=== PATIENT | male | born 1945 | race African-American/Black ===

== ENCOUNTER 2016-04-01 14:50 | Inpatient (IN) | payer OTHER ==
[2016-04-01 15:05] VITALS: BMI 13.6
--- NOTE | 2016-04-01 15:46 | PDOC ---
History of Present Illness - General History Source: Spouse, Old Records Exam Limitations: No Limitations - History of Present Illness Initial Comments: 04/01/16 15:46 The patient is a 70-year-old man, former smoker(quit >10 years ago), accompanied by spouse with a significant past medical history of HIV, hypertension. hyperchoelsterolemia, chronic obstructive pulmonary disease (home O2 dependent, was on 4L; recently increased to 6L), lung Ca(recently diagnosed) , who presents to the emergency department via EMS for further evaluation of chest pain. As per patient's , the patient was noted to complaint of chest pain today and was noted to be significantly weak. Patient's also recalls that the patinet's oxygen saturation was in the low 70s, despite compliance of home O2 6L. Upon ER arrival, patient was noted to by hypoxic (O2 in the 60s), tahcypneic (RR of 33), tachycardic (HR in the 120s). Patient as immediately placed on a non-rebreather and Respiratory was immediately called for a STAT ABG. Primary Care Physician: Dr. Shruti Shanks [phone] Superintendent Operating: Dr. Scott Jones [phone] Injection Mold Technician/Oncologist: Dr. Jono Weir Office: [phone] Infectious Disease: Dr. Amado Bermeo [phone] <Lakeisha Rico - Last Filed: 04/01/16 18:09> <Hernan Barone - Last Filed: 04/01/16 19:30> <Amado Sifuentes - Last Filed: 04/01/16 22:02> - General Chief Complaint: Chest Pain Stated Complaint: CHEST PAIN Time Seen by Provider: 04/01/16 15:45 Past History <Lakeisha Rico - Last Filed: 04/01/16 18:09> <Hernan Barone - Last Filed: 04/01/16 19:30> - Past Medical History Anemia: No Asthma: No Cancer: Yes (LUNG) Cardiac Disorders: No CVA: No COPD: Yes CHF: No Dementia: No Diabetes: No GI Disorders: No Disorders: No HTN: Yes Hypercholesterolemia: No HIV: Yes Liver Disease: No Seizures: No Thyroid Disease: No - Surgical History Abdominal Surgery: No Appendectomy: No Cardiac Surgery: No Cholecystectomy: No Lung Surgery: No Neurologic Surgery: No Orthopedic Surgery: No - Psycho/Social/Smoking Cessation Hx Anxiety: No Suicidal Ideation: No Smoking Status: No Smoking History: Former smoker Have you smoked in the past 12 months: No Number of Cigarettes Smoked Daily: 0 If you are a former smoker, when did you quit?: 2 MO Information on smoking cessation initiated: No Hx Alcohol Use: No Drug/Substance Use Hx: No Substance Use Type: None Hx Substance Use Treatment: No <mAado Sifuentes - Last Filed: 04/01/16 22:02> - Past Medical History Allergies/Adverse Reactions: Allergies Allergy/AdvReac Type Severity Reaction Status Date / Time No Known Allergies Allergy Verified 04/01/16 15:05 Home Medications: Ambulatory Orders Emtricitab/Rilpivirine/Tenofov [Complera -] 1 each PO DAILY 01/29/16 Rosuvastatin [Crestor -] 20 mg PO DAILY 01/29/16 Albuterol Sulfate Inhaler - [Ventolin Hfa Inhaler -] 1 - 2 inh PO Q4H #1 inhaler 02/05/16 Albuterol 0.083% Nebulizer Mami [Ventolin 0.083% Nebulizer Soln -] 1 neb NEB Q6H PRN 04/01/16 Review of Systems - Review of Systems Able to Perform ROS?: Yes Comments:: 04/01/16 15:47 GENERAL/CONSTITUTIONAL: Yes: +Weakness. No fever or chills. HEAD, EYES, EARS, NOSE AND THROAT: No change in vision. No ear pain or discharge. No sore throat. CARDIOVASCULAR: Yes: +Chest pain. +Shortness of Breath. RESPIRATORY: No cough, wheezing, or hemoptysis. GASTROINTESTINAL: No nausea, vomiting, diarrhea or constipation. GENITOURINARY: No dysuria, frequency, or change in urination. MUSCULOSKELETAL: No joint or muscle swelling or pain. No neck or back pain. SKIN: No rash NEUROLOGIC: No headache, vertigo, loss of consciousness, or change in strength/ sensation. ENDOCRINE: No increased thirst. No abnormal weight change. HEMATOLOGIC/LYMPHATIC: No anemia, easy bleeding, or history of blood clots. ALLERGIC/IMMUNOLOGIC: No hives or skin allergy. <Lakeisha Rico - Last Filed: 04/01/16 18:09> *Physical Exam - Vital Signs Last Vital Signs Temp Pulse Resp BP Pulse Ox 140 H 18 90/54 68 L 04/01/16 14:54 04/01/16 14:54 04/01/16 14:54 04/01/16 14:54 - Physical Exam Comments: 04/01/16 15:47 GENERAL: Awake, alert, arousable to answer questions. Appears somnolent. Cachetic. Hypoxic. Tachypneic. Retracting. Obtunded using accessory muscles. HEAD: No signs of trauma EYES: PERRLA, EOMI, sclera anicteric, conjunctiva clear ENT: Auricles normal inspection, hearing grossly normal, nares patent, oropharynx clear without exudates. Moist mucosa NECK: Normal ROM, supple, no lymphadenopathy, JVD, or masses LUNGS: Tachypneic, Using accessory muscles. Bilateral rales with decreased breath sound on the right base. HEART: Tachycardic to the 130s. no murmurs, rubs or gallops ABDOMEN: +Abdominal breathing. Soft, nontender, normoactive bowel sounds. No guarding, no rebound. No masses EXTREMITIES: Normal range of motion, no edema. No clubbing or cyanosis. No cords, erythema, or tenderness NEUROLOGICAL: Cranial nerves II through XII grossly intact. Moving all extremities. <JackyLakeisha - Last Filed: 04/01/16 18:09> - Vital Signs Last Vital Signs Temp Pulse Resp BP Pulse Ox 110 H 28 H 101/72 97 04/01/16 17:49 04/01/16 17:49 04/01/16 17:49 04/01/16 17:49 <Hernan Barone - Last Filed: 04/01/16 19:30> - Vital Signs Last Vital Signs Temp Pulse Resp BP Pulse Ox 140 H 18 90/54 68 L 04/01/16 14:54 04/01/16 14:54 04/01/16 14:54 04/01/16 14:54 <Amado Sifuentes - Last Filed: 04/01/16 22:02> ED Treatment Course - LABORATORY CBC & Chemistry Diagram: 04/01/16 15:45 04/01/16 15:45 <Lakeisha Rico - Last Filed: 04/01/16 18:09> - LABORATORY CBC & Chemistry Diagram: 04/01/16 15:45 04/01/16 15:45 - ADDITIONAL ORDERS Additional order review: Laboratory Results 04/01/16 04/01/16 04/01/16 17:48 16:04 15:46 D-Dimer Puncture Site Left radial ABG pH 7.49 H ABG pCO2 at Pt Temp 34.4 L ABG pO2 at Pt Temp 41.6 L* D ABG HCO3 25.7 ABG O2 Sat (Measured) 77.9 L ABG O2 Content 10.0 L ABG Base Excess 2.7 H Jose Elias Test Positive Carboxyhemoglobin 1.2 Methemoglobin 25.7 H O2 Delivery Device Nrb mask Oxygen Flow Rate 100% PEEP 0.0 Sodium Potassium Chloride Carbon Dioxide Anion Gap BUN Creatinine Creat Clearance w eGFR Random Glucose Lactic Acid 2.230 H* 5.016 H* Calcium Total Bilirubin AST ALT Alkaline Phosphatase Creatine Kinase Troponin I B-Natriuretic Peptide Total Protein Albumin Blood Type Antibody Screen 04/01/16 04/01/16 04/01/16 15:45 15:45 15:45 D-Dimer 2306 H Puncture Site ABG pH ABG pCO2 at Pt Temp ABG pO2 at Pt Temp ABG HCO3 ABG O2 Sat (Measured) ABG O2 Content ABG Base Excess Jose Elias Test Carboxyhemoglobin Methemoglobin O2 Delivery Device Oxygen Flow Rate PEEP Sodium 134 L Potassium 4.6 Chloride 95 L D Carbon Dioxide 27 Anion Gap 12 BUN 19 H D Creatinine 1.2 Creat Clearance w eGFR 59.51 Random Glucose 126 H Lactic Acid Calcium 8.3 L Total Bilirubin 0.3 D AST 149 H D ALT 147 H D Alkaline Phosphatase 174 H D Creatine Kinase 91 Troponin I < 0.02 B-Natriuretic Peptide 562.86 H Total Protein 6.8 D Albumin 1.7 L Blood Type O POSITIVE Antibody Screen Negative 04/01/16 15:45 RBC 4.49 MCV 68.2 L MCHC 30.5 L RDW 18.0 H D MPV 8.3 Neutrophils % 82.0 Lymphocytes % 8.0 D Monocytes % 7.0 - Medications Given in the ED: ED Medications Discontinued Medications Generic Name Dose Route Start Last Admin Trade Name Freq PRN Reason Stop Dose Admin Vancomycin HCl 1,000 mg/ 250 mls @ 250 mls/hr 04/01/16 16:07 04/01/16 16:48 Dextrose IVPB 04/01/16 17:06 250 mls/hr ONCE ONE Administration Piperacillin Sod/Tazobactam Sod 3.375 gm 04/01/16 16:07 04/01/16 16:27 Zosyn 3.375gm Ivpb (Pre-Docked) IVPB 04/01/16 16:08 3.375 gm ONCE ONE Administration Sodium Chloride 1,000 ml 04/01/16 17:18 04/01/16 17:18 Normal Saline - IV 04/01/16 17:19 1,000 ml NOW ONE Administration <Hernan Barone - Last Filed: 04/01/16 19:30> - LABORATORY CBC & Chemistry Diagram: 04/01/16 15:45 04/01/16 15:45 <Amado Sifuentes - Last Filed: 04/01/16 22:02> Medical Decision Making - Medical Decision Making 04/01/16 15:54 Respiratory was called at [id number] for STAT ABG. 04/01/16 16:00 Superintendent Operating, Dr. Guzman Kumar, partner of patient's Superintendent Operating, Dr. Scott Jones is currently in the ER reviewing patients portable Chest X- Ray. Dr. Kumar states that the patient's has Pneumonia and his lung Ca is metastasized. 04/01/16 16:22 A call was placed to patient's Injection Mold Technician/Oncologist, Dr. Jono Weir Office at [phone]. Case was discussed. 04/01/16 16:[address] Burns. Case was discussed. She does not accept the case and would like for it to go to the [facility]. 04/01/16 16:39 Overhead page, Dr. Calabrese. Immediate response. Case was discussed. Accepts case. 04/01/16 16:47 A call was placed to patient's PCP, Dr. Shruti Shanks at . Case was discussed. Accepts case. Patient will be admitted to the ICU for further management. <Lakeisha Rico - Last Filed: 04/01/16 18:09> *DC/Admit/Observation/Transfer - Attestations Scribe Attestion: 04/01/16 15:47 Documentation prepared by Lakeisha Rico, acting as medical radiation tech for Amado Sifuentes MD. <Lakeisha Rico - Last Filed: 04/01/16 18:09> - Discharge Dispostion Admit: Yes <Hernan Barone - Last Filed: 04/01/16 19:30> - Discharge Dispostion Admit: Yes <Amado Sifuentes - Last Filed: 04/01/16 22:02> Diagnosis at time of Disposition: Abnormal LFTs, Lung mass, Malignant neoplasm of hilus of lung, Right lower lobe pneumonia - Discharge Dispostion Condition at time of disposition: Critical - Referrals
[2016-04-01] MEDS ORDERED: RAPID SEQUENCE INTUBATION KIT NR ONE (15:53)
[2016-04-01 15:57] LABS: ALLENS TEST POSITIVE; ART PUNCT SITE LEFT RADIAL; ARTERIAL BLD GAS O2 SATURATION 77.9 % (90-98.9); ARTERIAL BLOOD GAS BASE EXCESS 2.7 meq/l (-2-2); ARTERIAL BLOOD GAS HCO3 25.7 meq/L (22-26); ARTERIAL BLOOD GAS pH 7.49 (7.35-7.45); METHEMOGLOBIN 25.7 % (0.4-1.5); PT. ON O2? YES
[2016-04-01 15:58] LABS: LPM/O2% 100%; TYPE OF O2 NRB MASK
[2016-04-01 15:59] LABS: ARTERIAL BLOOD GAS PO2 41.6 mmHg (70-100)
[2016-04-01 16:02] LABS: MCH 20.8 pg (25.7-33.7); MCHC 30.5 g/dl (32.0-35.9); MEAN CELL VOLUME 68.2 fl (80-96); MEAN PLT VOLUME 8.3 fl (7.5-11.1); PLATELET COUNT 825 K/MM3 (134-434)
[2016-04-01] MEDS ORDERED: PIPERACILLIN/TAZOB 3.375 GM/50 ML PRE-DOCKED IVPB ONE (16:07)
[2016-04-01] MEDS ORDERED: VANCOMYCIN 1,000 MG in DEXTROSE 5%-WATER - 250 ML IVPB ONE (16:07)
[2016-04-01] MEDS ORDERED: VANCOMYCIN 1 GRAM (PRE-DOCKED) 250 ML IVPB ONE (16:18)
[2016-04-01] MEDS ORDERED: PIPERACILLIN/TAZOB 3.375 GM 50 ML IVPB ONE (16:18)
[2016-04-01 16:21] LABS: WHITE BLOOD COUNT 32.2 K/mm3 (4.0-10.0)
[2016-04-01 16:27] LABS: ALBUMIN 1.7 g/dl (3.4-5.0); ANION GAP 12 (8-16); BILIRUBIN,TOTAL 0.3 mg/dL (0.2-1.0); CALCIUM 8.3 mg/dL (8.5-10.1); CO2 27 mmol/L (21-32); CREATININE 1.2 mg/dL (0.7-1.3); GLUCOSE,RANDOM 126 mg/dL (74-106); SGOT/AST 149 U/L (15-37); SGPT/ALT 147 U/L (12-78); TOT PROT 6.8 g/dl (6.4-8.2)
[2016-04-01 16:30] LABS: ALK PHOS 174 U/L (45-117); TROPONIN I < 0.02 ng/ml (0.00-0.05)
[2016-04-01 16:45] LABS: ANISOCYTOSIS 1+; HYPOCHROMIA 2+; MICROCYTOSIS 1+; OVALOCYTES 1+; PLATELET COMMENT2 NO CLUMPING NOTED; PLATELET ESTIMATE DECREASED (NORMAL); POIKILOCYTOSIS 1+; POLYCHROMASIA 1+; TARGET CELLS 2+
--- NOTE | 2016-04-01 16:48 | PN ---
Progress Note (short form) - Note Progress Note: PULMONARY CNSULTATION DICTATED 04/01/16 IMP ACUTE ON CHRONIC HYPOXEMIC RESPIRATORY FAILURE ADVANCED COPD ON O2 R LUNG PNEUMONIA/ATELECTASIS LUNG CA SQUAMOUS CELL HIV PLAN IV ANTIBIOTICS INHALED BRONCHODILATORS IV STEROIDS SUPPLEMENTAL O2 TO MAINTAIN 2 SAT 90% SPUTUM C+S CHEST CT F/U ABGS DR MILLER Problem List - Problems (1) Acute hypoxemic respiratory failure Code(s): J96.01 - ACUTE RESPIRATORY FAILURE WITH HYPOXIA (2) Acute respiratory distress Code(s): J80 - ACUTE RESPIRATORY DISTRESS SYNDROME (3) HIV (human immunodeficiency virus infection) Code(s): Z21 - ASYMPTOMATIC HUMAN IMMUNODEFICIENCY VIRUS INFECTION STATUS (4) Pneumonia Code(s): J18.9 - PNEUMONIA, UNSPECIFIED ORGANISM (5) Lung cancer Code(s): C34.90 - MALIGNANT NEOPLASM OF UNSP PART OF UNSP BRONCHUS OR LUNG
[2016-04-01] MEDS ORDERED: ALBUTEROL SO4 0.083% IH SOL 2.5 MG/3 ML VIAL.NEB. NEB PRN (16:49)
[2016-04-01] MEDS ORDERED: ALBUTEROL SO4 2.5/IPRATROPIUM 0.5 INH SOL 3 ML VIAL.NEB. NEB ONE ×2 (16:56→23:51)
[2016-04-01] MEDS ORDERED: methylPREDNISolone NA SUCC 40 MG/1 ML VIAL ONE (16:57)
[2016-04-01] MEDS: methylPREDNISolone NA SUCC 40 MG/1 ML VIAL IVPB SCH ×2 (16:59→22:37)
[2016-04-01] MEDS: ALBUTEROL SO4 2.5/IPRATROPIUM 0.5 INH SOL 3 ML VIAL.NEB. NEB SCH (16:59)
[2016-04-01] MEDS ORDERED: SODIUM CHLORIDE 0.9% 1000 ML INFUS.BAG IV ONE (17:18)
--- NOTE | 2016-04-01 17:22 | CONS ---
DATE OF CONSULTATION: 04/01/2016 PULMONARY CONSULTATION REFERRING PHYSICIAN: Jim Burns M.D. HISTORY OF PRESENT ILLNESS: The patient is a 70-year-old black male known to me from previous hospitalization with past medical history of chronic bronchogenic carcinoma squamous cell type, diagnosed in February 2016, advanced COPD on home O2 four liters, history of HIV, under the care of Dr. Bermeo, admitted to [facility] with the complaint of increasing shortness of breath, chest congestion over the past few days. According to the patient's , for the past few days the patient has been having increased shortness of breath, cough, and sputum production. Also noted that he has had progressive increasing hypoxemia. He notified his physician, and family was told to increase his FiO2. Despite these measures, he had increasing respiratory distress and remained hypoxic, at which time he presented to the emergency room. In the ER, he was found to be markedly hypoxemic with O2 saturations in the 70s, had a blood gas performed which revealed pO2 of 41. A chest x-ray was performed which revealed large right sided pneumonia. Patient was started on 100% O2 and inhaled bronchodilators. Patient denies any chest pain, nausea, vomiting, diaphoresis, nausea, hemoptysis. He has a history of tobacco use and apparently, according to his , still occasionally smokes. He also has a history of pneumonia. There is no history of occupational exposure to chemicals or fumes. There is no history of DVT or PE in the past. PAST MEDICAL HISTORY: Again includes bronchogenic carcinoma squamous cell type , HIV, and advanced COPD on O2. MEDICATION: Prior medications include Norvasc , Dulera, Crestor, albuterol, and Augmentin. PHYSICAL EXAMINATION: General: The patient is a cachectic black male, well developed, awake, alert, dyspneic. Vital signs: Blood pressure is currently 90/54, respiratory rate 24 to 26, O2 saturation is 94% on nonrebreather, and heart rate is 122. HEENT: Head is normocephalic, atraumatic. Neck: Supple. Heart: Tachycardic. S1, S2. Chest: Crackles on the right. Abdomen: Soft. Bowel sounds positive. Extremities: No cyanosis, edema. LABORATORY: Blood gas: pH 7.49, pCO2 of 34, pO2 of 41, and bicarbonate of 25, and saturation is 97.9 on 100% nonrebreather. WBC is 32.2, hemoglobin 9.3, hematocrit 30.6, platelet count of 825,000. Chemistries are pending. Chest x-ray revealed a right hilar mass, complete opacification R lung c/w atelectasis,post obstructive pneumonia. IMPRESSION: [id number] hypoxemic respiratory failure secondary to: 1. Advanced chronic obstructive pulmonary disease with exacerbation. 2. Extensive right lung consolidation c/w atelectasis, likely post-obstructive pneumonia. 3. Bronchogenic carcinoma squamous cell type. 4. History of human immunodeficiency virus. PLAN: Admit to ICU. IV steroids. Inhaled bronchodilators. Supplemental O2. Maintain O2 saturation 90%. Cultures, sputum C&S. Follow up arterial blood gases. Broad spectrum antibiotics. Follow- up arterial blood gases. CT scan of the chest. KELLI MILLER M.D. [id number] MTDD
[2016-04-01] MEDS ORDERED: SODIUM CHLORIDE 1,000 ML IV STA (18:29)
--- NOTE | 2016-04-01 18:48 | CONSULT ---
Consult - text type - Consultation Consultation Note: The patient is a 70-year-old man, former smoker(quit >10 years ago), accompanied by spouse with a significant past medical history of HIV, hypertension. hyperchoelsterolemia, chronic obstructive pulmonary disease (home O2 dependent, was on 4L; recently increased to 6L), lung Ca(recently diagnosed squamous cell), who presents to the emergency department via EMS for further evaluation of chest pain. As per patient's , the patient was noted to complaint of chest pain and shortness of breath today and was noted to be significantly weak. Patient's also recalls that the patinet's oxygen saturation was in the low 70s, despite compliance of home O2 6L. Upon ER arrival , patient was noted to by hypoxic (O2 in the 60s), tahcypneic (RR of 33), tachycardic (HR in the 120s). Patient as immediately placed on a non-rebreather - Past Medical History Cancer: Yes (LUNG) HTN: Yes hiv - Psycho/Social/Smoking Cessation Hx Smoking History: Former smoker > - Past Medical History Allergies/Adverse Reactions: Allergies Allergy/AdvReac Type Severity Reaction Status Date / Time No Known Allergies Allergy Verified 04/01/16 15:05 Home Medications: Ambulatory Orders Emtricitab/Rilpivirine/Tenofov [Complera -] 1 each PO DAILY 01/29/16 Rosuvastatin [Crestor -] 20 mg PO DAILY 01/29/16 Albuterol Sulfate Inhaler - [Ventolin Hfa Inhaler -] 1 - 2 inh PO Q4H #1 inhaler 02/05/16 Albuterol 0.083% Nebulizer Mami [Ventolin 0.083% Nebulizer Soln -] 1 neb NEB Q6H PRN 04/01/16 Current Medications Albuterol Sulfate (Ventolin 0.083% Nebulizer Soln -) 1 amp NEB Q4H PRN PRN Reason: SHORT OF BREATH/WHEEZING Albuterol/Ipratropium (Duoneb -) 1 amp NEB QIDR JESSA Last Admin: 04/02/16 06:25 Dose: 1 amp Heparin Sodium (Porcine) (Heparin -) 5,000 unit SQ BID JESSA Last Admin: 04/01/16 22:37 Dose: 5,000 unit Sodium Chloride (Normal Saline -) 1,000 mls @ 75 mls/hr IV ASDIR JESSA Last Admin: 04/01/16 22:03 Dose: 75 mls/hr Methylprednisolone Sodium Succinate (Solu-Medrol -) 40 mg IVPB Q6H-IV JESSA Last Admin: 04/02/16 03:34 Dose: 40 mg Piperacillin Sod/Tazobactam Sod (Zosyn 3.375gm Ivpb (Pre-Docked)) 3.375 gm IVPB Q8H-IV JESSA Piperacillin Sod/Tazobactam Sod (Zosyn 3.375gm Ivpb (Pre-Docked)) 3.375 gm IVPB Q8H-IV JESSA Stop: 04/02/16 10:01 Last Admin: 04/02/16 02:34 Dose: 3.375 gm - Vital Signs Last Vital Signs Temp Pulse Resp BP Pulse Ox 140 H 18 90/54 68 L 04/01/16 14:54 04/01/16 14:54 04/01/16 14:54 04/01/16 14:54 - Physical Exam Comments: 04/01/16 15:47 GENERAL: Awake, alert, arousable to answer questions. Cachetic. Hypoxic. Tachypneic. Retracting. LUNGS: Tachypneic, Using accessory muscles. Bilateral rales with decreased breath sound on the right base. HEART: Tachycardic to the 130s. no murmurs, rubs or gallops ABDOMEN: +Abdominal breathing. Soft, nontender, normoactive bowel sounds. EXTREMITIES: Normal range of motion, no edema Laboratory Results 04/01/16 04/01/16 04/01/16 17:48 16:04 15:46 D-Dimer Puncture Site Left radial ABG pH 7.49 H ABG pCO2 at Pt Temp 34.4 L ABG pO2 at Pt Temp 41.6 L* D ABG HCO3 25.7 ABG O2 Sat (Measured) 77.9 L ABG O2 Content 10.0 L ABG Base Excess 2.7 H Jose Elias Test Positive Carboxyhemoglobin 1.2 Methemoglobin 25.7 H O2 Delivery Device Nrb mask Oxygen Flow Rate 100% PEEP 0.0 Sodium Potassium Chloride Carbon Dioxide Anion Gap BUN Creatinine Creat Clearance w eGFR Random Glucose Lactic Acid 2.230 H* 5.016 H* Calcium Total Bilirubin AST ALT Alkaline Phosphatase Creatine Kinase Troponin I B-Natriuretic Peptide Total Protein Albumin Blood Type Antibody Screen 04/01/16 04/01/16 04/01/16 15:45 15:45 15:45 D-Dimer 2306 H Puncture Site ABG pH ABG pCO2 at Pt Temp ABG pO2 at Pt Temp ABG HCO3 ABG O2 Sat (Measured) ABG O2 Content ABG Base Excess Joes Elias Test Carboxyhemoglobin Methemoglobin O2 Delivery Device Oxygen Flow Rate PEEP Sodium 134 L Potassium 4.6 Chloride 95 L D Carbon Dioxide 27 Anion Gap 12 BUN 19 H D Creatinine 1.2 Creat Clearance w eGFR 59.51 Random Glucose 126 H Lactic Acid Calcium 8.3 L Total Bilirubin 0.3 D AST 149 H D ALT 147 H D Alkaline Phosphatase 174 H D Creatine Kinase 91 Troponin I < 0.02 B-Natriuretic Peptide 562.86 H Total Protein 6.8 D Albumin 1.7 L Blood Type O POSITIVE Antibody Screen Negative 04/01/16 15:45 RBC 4.49 MCV 68.2 L MCHC 30.5 L RDW 18.0 H D MPV 8.3 Neutrophils % 82.0 Lymphocytes % 8.0 D Monocytes % 7.0 A/P 70 y/o patient with HIV, severe COPD, recently diagnosed squamous cell lung cancer, now with shortness of breath. CT chest Rt. lung collapse, mediastinal shift, post obstructive pneumonia ICU team and mysef discussed with paient and family overall situation about impending resp. failure due to underlying malignancy. aggressiveness of the tumor especially given his immunocompromised status. Poor performance status and overallpoor prognosis. discussed thatthey need to address advance directives. Antibiotics supportive care rad-onc consult
--- NOTE | 2016-04-01 20:02 | HP ---
Admitting History and Physical - Primary Care Physician PCP: Jim Burns - Admission Chief Complaint: SOB, CHEST PAIN History of Present Illness: 70-year-old man, former smoker(quit >10 years ago), accompanied by spouse with a significant past medical history of HIV, hypertension. hyperchoelsterolemia, chronic obstructive pulmonary disease (home O2 dependent, was on 4L; recently increased to 6L), lung Ca(recently diagnosed), who presents to the emergency department via EMS for further evaluation of chest pain. As per patient's , the patient was noted to complaint of chest pain today and was noted to be significantly weak.patinet's oxygen saturation was in the low 70s, despite compliance of home O2 6L. Upon ER arrival, patient was noted to by hypoxic (O2 in the 60s), tahcypneic (RR of 33), tachycardic (HR in the 120s). Patient as immediately placed on a non-rebreather and Respiratory was immediately called for a STAT ABG. - Past Medical History Cardiovascular: Yes: HTN, Hyperlipdemia Pulmonary: Yes: Cancer (LUNG), COPD Infectious Disease: Yes: HIV - Smoking History Smoking history: Former smoker Have you smoked in the past 12 months: No Aproximately how many cigarettes per day: 0 If you are a former smoker, when did you quit?: 2 MO - Alcohol/Substance Use Hx Alcohol Use: No Home Medications - Allergies Allergies/Adverse Reactions: Allergies Allergy/AdvReac Type Severity Reaction Status Date / Time No Known Allergies Allergy Verified 04/01/16 15:05 - Home Medications Home Medications: Ambulatory Orders Emtricitab/Rilpivirine/Tenofov [Complera -] 1 each PO DAILY 01/29/16 Rosuvastatin [Crestor -] 20 mg PO DAILY 01/29/16 Albuterol Sulfate Inhaler - [Ventolin Hfa Inhaler -] 1 - 2 inh PO Q4H #1 inhaler 02/05/16 Albuterol 0.083% Nebulizer Mami [Ventolin 0.083% Nebulizer Soln -] 1 neb NEB Q6H PRN 04/01/16 Review of Systems - Review of Systems Constitutional: reports: Unintentional Wgt. Loss, Weakness Respiratory: reports: SOB Physical Examination Vital Signs: Vital Signs Temperature Pulse Rate 110 H 04/01/16 17:49 Respiratory Rate 28 H 04/01/16 17:49 Blood Pressure 101/72 04/01/16 17:49 O2 Sat by Pulse Oximetry (%) 97 04/01/16 17:49 Constitutional: Yes: Cachectic HENT: Yes: Atraumatic Cardiovascular: Yes: Regular Rate and Rhythm Respiratory: Yes: CTA Bilaterally Gastrointestinal: Yes: Normal Bowel Sounds Extremities: Yes: WNL Problem List - Problems (1) Lung cancer Code(s): C34.90 - MALIGNANT NEOPLASM OF UNSP PART OF UNSP BRONCHUS OR LUNG (2) Acute hypoxemic respiratory failure Code(s): J96.01 - ACUTE RESPIRATORY FAILURE WITH HYPOXIA (3) HIV (human immunodeficiency virus infection) Code(s): Z21 - ASYMPTOMATIC HUMAN IMMUNODEFICIENCY VIRUS INFECTION STATUS (4) Pneumonia Code(s): J18.9 - PNEUMONIA, UNSPECIFIED ORGANISM (5) COPD (chronic obstructive pulmonary disease) Code(s): J44.9 - CHRONIC OBSTRUCTIVE PULMONARY DISEASE, UNSPECIFIED Assessment/Plan Laboratory Tests 04/01/16 04/01/16 04/01/16 15:45 15:45 15:45 WBC 32.2 H* D RBC 4.49 Hgb 9.3 L Hct 30.6 L MCV 68.2 L MCHC 30.5 L RDW 18.0 H D Plt Count 825 H D MPV 8.3 Neutrophils % 82.0 Lymphocytes % 8.0 D Monocytes % 7.0 Band Neutrophils 2.0 Reactive Lymphocytes 1 D Platelet Estimate Decreased Platelet Comment No clumping noted Polychromasia 1+ Hypochromic-Microcytic 2+ Poikilocytosis 1+ Anisocytosis 1+ Microcytosis 1+ Target Cells 2+ Ovalocytes 1+ D-Dimer Puncture Site ABG pH ABG pCO2 at Pt Temp ABG pO2 at Pt Temp ABG HCO3 ABG O2 Sat (Measured) ABG O2 Content ABG Base Excess Jose Elias Test Carboxyhemoglobin Methemoglobin O2 Delivery Device Oxygen Flow Rate PEEP Sodium 134 L Potassium 4.6 Chloride 95 L D Carbon Dioxide 27 Anion Gap 12 BUN 19 H D Creatinine 1.2 Creat Clearance w eGFR 59.51 Random Glucose 126 H Lactic Acid Calcium 8.3 L Total Bilirubin 0.3 D AST 149 H D ALT 147 H D Alkaline Phosphatase 174 H D Creatine Kinase 91 Troponin I < 0.02 B-Natriuretic Peptide 562.86 H Total Protein 6.8 D Albumin 1.7 L Blood Type O POSITIVE Antibody Screen Negative 04/01/16 04/01/16 04/01/16 15:45 15:46 16:04 WBC RBC Hgb Hct MCV MCHC RDW Plt Count MPV Neutrophils % Lymphocytes % Monocytes % Band Neutrophils Reactive Lymphocytes Platelet Estimate Platelet Comment Polychromasia Hypochromic-Microcytic Poikilocytosis Anisocytosis Microcytosis Target Cells Ovalocytes D-Dimer 2306 H Puncture Site Left radial ABG pH 7.49 H ABG pCO2 at Pt Temp 34.4 L ABG pO2 at Pt Temp 41.6 L* D ABG HCO3 25.7 ABG O2 Sat (Measured) 77.9 L ABG O2 Content 10.0 L ABG Base Excess 2.7 H Jose Elias Test Positive Carboxyhemoglobin 1.2 Methemoglobin 25.7 H O2 Delivery Device Nrb mask Oxygen Flow Rate 100% PEEP 0.0 Sodium Potassium Chloride Carbon Dioxide Anion Gap BUN Creatinine Creat Clearance w eGFR Random Glucose Lactic Acid 5.016 H* Calcium Total Bilirubin AST ALT Alkaline Phosphatase Creatine Kinase Troponin I B-Natriuretic Peptide Total Protein Albumin Blood Type Antibody Screen 04/01/16 17:48 WBC RBC Hgb Hct MCV MCHC RDW Plt Count MPV Neutrophils % Lymphocytes % Monocytes % Band Neutrophils Reactive Lymphocytes Platelet Estimate Platelet Comment Polychromasia Hypochromic-Microcytic Poikilocytosis Anisocytosis Microcytosis Target Cells Ovalocytes D-Dimer Puncture Site ABG pH ABG pCO2 at Pt Temp ABG pO2 at Pt Temp ABG HCO3 ABG O2 Sat (Measured) ABG O2 Content ABG Base Excess Jose Elias Test Carboxyhemoglobin Methemoglobin O2 Delivery Device Oxygen Flow Rate PEEP Sodium Potassium Chloride Carbon Dioxide Anion Gap BUN Creatinine Creat Clearance w eGFR Random Glucose Lactic Acid 2.230 H* Calcium Total Bilirubin AST ALT Alkaline Phosphatase Creatine Kinase Troponin I B-Natriuretic Peptide Total Protein Albumin Blood Type Antibody Screen 1.acute respiratory failure/pna pt on nrb on ivabx stable 2.hiv stable on meds dr wiley on cosult 3.copd duo nebs 4.htn stable on meds 5.hld 6.lung ca dvt ppx pulmonary on board oncology consult
--- NOTE | 2016-04-01 20:11 | CONSULT ---
Consult Consult Specialty:: Critical Care Reason for Consultation:: COPD, lung cancer - History of Present Illness Chief Complaint: SOB History of Present Illness: This is a 70 yo man HIV (CD4: 222, VL:31), COPD on home O2 6 lpm, HTN recently diagnosed via biopsy squamous cell lung cancer who presented with decreased exercise tolerance x 1 week and SOB. He was last admitted to [facility] 01/29/16 for SOB and was diagnosed with via FOB w/ squamous cell lung cancer. Imaging showed large obstructing lesion in the right mainstem bronchus w/ postobstructive pneumonia. He was treated with ABX and discharged with plan to f/u oncology for staging and initiation of therapy. Since discharge he has required 2 ED visits at [facility]. He has not followed up with oncology. Over the past several days he has had a decreased appetite with increased dyspnea and decreased exercise tolerance. He admitted via ED for SOB. AB.49/35/42 methemoglobin 25. WBC: 32. Lactate 5->2 w/ IV fluids. He was placed on NRB. ABX started: zosyn/vanco. Patient sent to ICU for continued care and severe hypoxia. Patient seen in the ICU cont to complain of SOB. Sat improved to 91-95%. BiPAP ordered. ABX continued. - History Source History Provided By: Patient, Family Member, Medical Record - Past Medical History Cardio/Vascular: Yes: HTN, Hyperlipdemia Pulmonary: Yes: Cancer (LUNG), COPD Infectious Disease: Yes: HIV - Alcohol/Substance Use Hx Alcohol Use: No - Smoking History Smoking history: Former smoker Have you smoked in the past 12 months: No Aproximately how many cigarettes per day: 0 If you are a former smoker, when did you quit?: 2 MO Home Medications - Allergies Allergies/Adverse Reactions: Allergies Allergy/AdvReac Type Severity Reaction Status Date / Time No Known Allergies Allergy Verified 04/01/16 15:05 - Home Medications Home Medications: Ambulatory Orders Emtricitab/Rilpivirine/Tenofov [Complera -] 1 each PO DAILY 01/29/16 Rosuvastatin [Crestor -] 20 mg PO DAILY 01/29/16 Albuterol Sulfate Inhaler - [Ventolin Hfa Inhaler -] 1 - 2 inh PO Q4H #1 inhaler 02/05/16 Albuterol 0.083% Nebulizer Mami [Ventolin 0.083% Nebulizer Soln -] 1 neb NEB Q6H PRN 04/01/16 Review of Systems - Review of Systems Constitutional: reports: Unintentional Wgt. Loss, Weakness Respiratory: reports: Cough, Exercise Intolerance, SOB, SOB on Exertion Physical Exam Vital Signs: Vital Signs Temperature Pulse Rate 110 H 04/01/16 17:49 Respiratory Rate 28 H 04/01/16 17:49 Blood Pressure 101/72 04/01/16 17:49 O2 Sat by Pulse Oximetry (%) 97 04/01/16 17:49 Current Medications Albuterol Sulfate (Ventolin 0.083% Nebulizer Soln -) 1 amp NEB Q4H PRN PRN Reason: SHORT OF BREATH/WHEEZING Albuterol/Ipratropium (Duoneb -) 1 amp NEB QIDR JESSA Last Admin: 04/01/16 16:59 Dose: 1 amp Sodium Chloride (Normal Saline -) 1,000 mls @ 75 mls/hr IV ASDIR JESSA Methylprednisolone Sodium Succinate (Solu-Medrol -) 40 mg IVPB Q6H-IV JESSA Last Admin: 04/01/16 16:59 Dose: 40 mg Piperacillin Sod/Tazobactam Sod (Zosyn 3.375gm Ivpb (Pre-Docked)) 3.375 gm IVPB Q8H-IV JESSA Piperacillin Sod/Tazobactam Sod (Zosyn 3.375gm Ivpb (Pre-Docked)) 3.375 gm IVPB Q8H-IV JESSA Stop: 04/02/16 10:01 Constitutional: Yes: Cachectic, Mild Distress Eyes: Yes: Conjunctiva Clear, EOM Intact Cardiovascular: Yes: S1, S2 Respiratory: Yes: Other (absent on right, clear on left) Gastrointestinal: Yes: Normal Bowel Sounds, Soft Extremities: Yes: WNL Edema: No Integumentary: Yes: WNL Neurological: Yes: Alert, Oriented Psychiatric: Yes: Alert, Oriented Labs: ABG Results ABG pH 7.49 (7.35-7.45) H 04/01/16 15:46 ABG pCO2 at Pt Temp 34.4 mmHg (35-45) L 04/01/16 15:46 ABG pO2 at Pt Temp 41.6 mmHg (70-100) L* D 04/01/16 15:46 ABG HCO3 25.7 meq/L (22-26) 04/01/16 15:46 ABG O2 Sat (Measured) 77.9 % (90-98.9) L 04/01/16 15:46 ABG O2 Content 10.0 % vol (15-22) L 04/01/16 15:46 ABG Base Excess 2.7 meq/l (-2-2) H 04/01/16 15:46 CBCD WBC 32.2 K/mm3 (4.0-10.0) H* D 04/01/16 15:45 RBC 4.49 M/mm3 (4.00-5.60) 04/01/16 15:45 Hgb 9.3 GM/dL (11.7-16.9) L 04/01/16 15:45 Hct 30.6 % (35.4-49) L 04/01/16 15:45 MCV 68.2 fl (80-96) L 04/01/16 15:45 MCHC 30.5 g/dl (32.0-35.9) L 04/01/16 15:45 RDW 18.0 % (11.9-15.9) H D 04/01/16 15:45 Plt Count 825 K/MM3 (134-434) H D 04/01/16 15:45 MPV 8.3 fl (7.5-11.1) 04/01/16 15:45 CMP Sodium 134 mmol/L (136-145) L 04/01/16 15:45 Potassium 4.6 mmol/L (3.5-5.1) 04/01/16 15:45 Chloride 95 mmol/L (98-107) L D 04/01/16 15:45 Carbon Dioxide 27 mmol/L (21-32) 04/01/16 15:45 Anion Gap 12 (8-16) 04/01/16 15:45 BUN 19 mg/dL (7-18) H D 04/01/16 15:45 Creatinine 1.2 mg/dL (0.7-1.3) 04/01/16 15:45 Creat Clearance w eGFR 59.51 (>60) 04/01/16 15:45 Random Glucose 126 mg/dL (74-106) H 04/01/16 15:45 Calcium 8.3 mg/dL (8.5-10.1) L 04/01/16 15:45 Total Bilirubin 0.3 mg/dL (0.2-1.0) D 04/01/16 15:45 AST 149 U/L (15-37) H D 04/01/16 15:45 ALT 147 U/L (12-78) H D 04/01/16 15:45 Alkaline Phosphatase 174 U/L (45-117) H D 04/01/16 15:45 Total Protein 6.8 g/dl (6.4-8.2) D 04/01/16 15:45 Albumin 1.7 g/dl (3.4-5.0) L 04/01/16 15:45 CARDIAC ENZYMES Creatine Kinase 91 IU/L (39-308) 04/01/16 15:45 Troponin I < 0.02 ng/ml (0.00-0.05) 04/01/16 15:45 Imaging - Results Chest X-ray: Report Reviewed, Image Reviewed Cat Scan: Report Reviewed, Image Reviewed Problem List - Problems (1) COPD (chronic obstructive pulmonary disease) Code(s): J44.9 - CHRONIC OBSTRUCTIVE PULMONARY DISEASE, UNSPECIFIED (2) Lung cancer Code(s): C34.90 - MALIGNANT NEOPLASM OF UNSP PART OF UNSP BRONCHUS OR LUNG (3) Acute hypoxemic respiratory failure Code(s): J96.01 - ACUTE RESPIRATORY FAILURE WITH HYPOXIA (4) HIV (human immunodeficiency virus infection) Code(s): Z21 - ASYMPTOMATIC HUMAN IMMUNODEFICIENCY VIRUS INFECTION STATUS (5) Pneumonia Code(s): J18.9 - PNEUMONIA, UNSPECIFIED ORGANISM Assessment/Plan A/P: 70 yo man HIV, COPD, HTN, Lung cancer with progression of disease causing complete collapse of right lung c/b post obstructive pneumonia -ABX:zosyn/vanco -ID consult in AM -O2 for Sat >92% -Nebs -cont steroids -BiPAP as needed -low threshold for intubation -Oncology to follow -would likely benefit from palliative radiation oncology -consider palliative care consult in AM -continue goals of care discussions Boerem ACNP Pulm/CCM CCT: 35m
[2016-04-01] MEDS: SODIUM CHLORIDE 1,000 ML IV SCH (22:03)
[2016-04-01] MEDS: HEPARIN NA (PORCINE) 5,000 UNITS/ML 1ML VIAL SQ SCH (22:37)
[2016-04-02] MEDS: ALBUTEROL SO4 2.5/IPRATROPIUM 0.5 INH SOL 3 ML VIAL.NEB. NEB SCH ×5 (00:30→23:12)
[2016-04-02] MEDS ORDERED: PIPERACILLIN/TAZOB 3.375 GM/50 ML PRE-DOCKED IVPB SCH ×2 (02:00)
[2016-04-02] MEDS: methylPREDNISolone NA SUCC 40 MG/1 ML VIAL IVPB SCH ×5 (03:34→23:45)
[2016-04-02 04:31] LABS: ARTERIAL BLD GAS O2 SATURATION 93.5 % (90-98.9); ARTERIAL BLOOD GAS BASE EXCESS 2.4 meq/l (-2-2); ARTERIAL BLOOD GAS HCO3 25.6 meq/L (22-26); ARTERIAL BLOOD GAS PO2 66.6 mmHg (70-100)
[2016-04-02 04:32] LABS: ALLENS TEST POSITIVE; ART PUNCT SITE RIGHT RADIAL; LPM/O2% 50%; PT. ON O2? YES; TYPE OF O2 BI-PAP; VENT RATE 20
[2016-04-02 04:33] LABS: ARTERIAL BLOOD GAS pH 7.47 (7.35-7.45)
[2016-04-02] MEDS ORDERED: ALBUTEROL SO4 2.5/IPRATROPIUM 0.5 INH SOL 3 ML VIAL.NEB. NEB ONE ×2 (06:14→11:15)
[2016-04-02 06:53] LABS: BASOPHIL 0.1 % (0-2.0); MCH 20.3 pg (25.7-33.7); MCHC 30.2 g/dl (32.0-35.9); MEAN CELL VOLUME 67.3 fl (80-96); MEAN PLT VOLUME 8.5 fl (7.5-11.1); NEUTROPHILS 94.3 % (42.8-82.8); PLATELET COUNT 669 K/MM3 (134-434); RDW 17.5 % (11.9-15.9)
[2016-04-02 08:49] LABS: ALBUMIN 1.4 g/dl (3.4-5.0); ANION GAP 5 (8-16); BILIRUBIN,TOTAL 0.3 mg/dL (0.2-1.0); CALCIUM 8.1 mg/dL (8.5-10.1); CO2 25 mmol/L (21-32); CREATININE 0.9 mg/dL (0.7-1.3); GLUCOSE,RANDOM 130 mg/dL (74-106); SGOT/AST 84 U/L (15-37); SGPT/ALT 103 U/L (12-78); TOT PROT 5.7 g/dl (6.4-8.2)
[2016-04-02 08:50] LABS: ALK PHOS 134 U/L (45-117)
--- NOTE | 2016-04-02 08:53 | PN ---
Progress Note, Physician Chief Complaint: ID Followed by Dr Bermeo for HIV and history of lung CA Full note dictated - Current Medication List Current Medications: Active Medications Albuterol Sulfate (Ventolin 0.083% Nebulizer Soln -) 1 amp NEB Q4H PRN PRN Reason: SHORT OF BREATH/WHEEZING Albuterol/Ipratropium (Duoneb -) 1 amp NEB QIDR JESSA Last Admin: 04/02/16 06:25 Dose: 1 amp Heparin Sodium (Porcine) (Heparin -) 5,000 unit SQ BID JESSA Last Admin: 04/01/16 22:37 Dose: 5,000 unit Sodium Chloride (Normal Saline -) 1,000 mls @ 75 mls/hr IV ASDIR JESSA Last Admin: 04/01/16 22:03 Dose: 75 mls/hr Methylprednisolone Sodium Succinate (Solu-Medrol -) 40 mg IVPB Q6H-IV JESSA Last Admin: 04/02/16 03:34 Dose: 40 mg Piperacillin Sod/Tazobactam Sod (Zosyn 3.375gm Ivpb (Pre-Docked)) 3.375 gm IVPB Q8H-IV JESSA Piperacillin Sod/Tazobactam Sod (Zosyn 3.375gm Ivpb (Pre-Docked)) 3.375 gm IVPB Q8H-IV JESSA Stop: 04/02/16 10:01 Last Admin: 04/02/16 02:34 Dose: 3.375 gm - Objective Vital Signs: Vital Signs Temperature 97.3 F L 04/02/16 07:00 Pulse Rate 104 H 04/02/16 07:00 Respiratory Rate 20 04/02/16 07:00 Blood Pressure 91/70 04/02/16 07:00 O2 Sat by Pulse Oximetry (%) 96 04/02/16 05:30 Constitutional: Yes: Thin Labs: CBC, BMP 04/02/16 05:20 Problem List - Problems (1) Lung cancer Code(s): C34.90 - MALIGNANT NEOPLASM OF UNSP PART OF UNSP BRONCHUS OR LUNG (2) HIV (human immunodeficiency virus infection) Code(s): Z21 - ASYMPTOMATIC HUMAN IMMUNODEFICIENCY VIRUS INFECTION STATUS (3) Post-obstructive pneumonia due to foreign body aspiration Code(s): J18.9 - PNEUMONIA, UNSPECIFIED ORGANISM T17.908S - UNSP FB IN RESP TRACT, PART UNSP CAUSING OTH INJURY, SEQUELA Assessment/Plan Lung CA Post obstructive PNA HIV infection on Stribild Plan Zosyn as ordered Prognosis poor Oncology evaluation
--- NOTE | 2016-04-02 09:52 | CONS ---
DATE OF CONSULTATION: DATE OF DICTATION: 04/02/2016 HISTORY OF PRESENT ILLNESS: This is a 70-year-old male with known diagnosis of chronic bronchogenic squamous cell carcinoma admitted to the ICU with chief complaint of shortness of breath. He also has a history of longstanding HIV infection for which he has been followed by Dr. Bermeo and has been prescribed Stribild. Currently, I am unaware of his T-cell counts, however. He has advanced COPD, of course, with lung cancer and is on home oxygen. According to the , over the last several days he had developed sputum production with cough and worsening shortness of breath and found to be hypoxemic. He came to the emergency room where his O2 saturations were found to be in the 70s and had a blood gas with a PO2 of 41. A chest x-ray was performed which showed a large right-sided pneumonia; and he was treated with steroids, inhaled bronchodilators, and parenteral antibiotics. His white count on admission was 32,000. PAST MEDICAL HISTORY: As noted above. CURRENT MEDICATIONS: Include Stribild, Crestor, Ventolin, home O2. ALLERGIES: None known. SOCIAL HISTORY: Former smoker. No history of alcohol use. . FAMILY HISTORY: Reviewed and noncontributory. REVIEW OF SYSTEMS:Respiratory: Shortness of breath with cough and sputum production. Cardiac: No chest pain, palpitation, syncope, murmur. Gastrointestinal: Weight loss. No abdominal pain, hematemesis, diarrhea. Genitourinary: No dysuria, hematuria, urinary frequency. PHYSICAL EXAMINATION: General: Revealed a chronically ill, thin-appearing male. Vital Signs: Weighing 97 pounds, with a temperature of 97, pulse of 104, blood pressure of 90/70, and respirations of 20. HEENT: Revealed temporal wasting. Neck: Supple. Lungs: With bilateral rhonchi. Heart: S1, S2. Regular rhythm without murmur. Abdomen: Soft. Normoactive bowel sounds. Nontender. Extremities: Without edema. LABORATORY DATA: The white count is 32,000, hemoglobin 9.3, platelets of 825, 82% polys, 8 lymphs, 7 monocytes, and 2 bands. INR 2306. AB.47, 35, 67 on 50% BiPAP. BUN 17, creatinine 0.9, AST 84, ALT 103, alkaline phosphatase 134, albumin 1.4. Vancomycin level today 10.9. Two sets of blood cultures dated April 01 currently pending. CAT scan of the chest which shows total opacification, collapse of the right lung with air bronchograms, loss of volume and shift of the heart and mediastinum to the right. No gross discrete masses are evident. Patchy opacities in the left lung measuring 9 x 5 mm are now present. ASSESSMENT: A 70-year-old male with severe chronic obstructive pulmonary disease and known diagnosis of lung cancer presents with respiratory failure, found to have complete opacification of the right lung with new nodules in the left lung, mediastinal shift, atelectasis, all consistent with postobstructive lung cancer, pneumonia. As per Dr. Luna, a poor performance status. Overall prognosis poor. Advanced directives to be discussed. Pending cultures of blood and sputum. Would continue treatment with Zosyn 3.375 g q.6 hours. JACKIE CAROLINA M.D. [id number]
[2016-04-02] MEDS ORDERED: PT OWN MED DRAWER 7, Y5N ONE (10:28)
[2016-04-02] MEDS: HEPARIN NA (PORCINE) 5,000 UNITS/ML 1ML VIAL SQ SCH ×2 (10:55→21:31)
[2016-04-02] MEDS: PIPERACILLIN/TAZOB 3.375 GM 50 ML IVPB SCH ×3 (10:55→21:31)
[2016-04-02] MEDS: SODIUM CHLORIDE 1,000 ML IV SCH ×2 (10:56→15:54)
--- NOTE | 2016-04-02 12:36 | PN ---
Teaching Attending Note Name of Resident: Peter Combs ATTENDING PHYSICIAN STATEMENT I saw and evaluated the patient. I reviewed the resident's note and discussed the case with the resident. I agree with the resident's findings and plan as documented. SUBJECTIVE: Pt seen and examined in the ICU. On NRB saturating well. +nonproductive cough. No fevers recorded. OBJECTIVE: Last Vital Signs Temp Pulse Resp BP Pulse Ox 97.6 F 103 H 20 97/72 96 04/02/16 10:00 04/02/16 11:57 04/02/16 11:57 04/02/16 11:57 04/02/16 10:09 Intake & Output 03/30/16 03/31/16 04/01/16 04/02/16 23:59 23:59 23:59 23:59 Intake Total 400 725 Balance 400 725 Weight 90 lb 97 lb 7 oz Gen: cachectic, mildly tachypneic at rest Heart: tachycardic, regular Lung: decreased breath sounds on right, +rhonchi Abd: soft, nontender Ext: no edema CBC, BMP 04/02/16 05:20 04/02/16 08:30 CXR: right sided atelectasis Active Medications Albuterol Sulfate (Ventolin 0.083% Nebulizer Soln -) 1 amp NEB Q4H PRN PRN Reason: SHORT OF BREATH/WHEEZING Albuterol/Ipratropium (Duoneb -) 1 amp NEB QIDR [facility] Last Admin: 04/02/16 11:42 Dose: 1 amp Emtricitabine/Rilpivirine/Tenofovir (Complera -) 1 each PO DAILY@0800 [facility] Heparin Sodium (Porcine) (Heparin -) 5,000 unit SQ BID [facility] Last Admin: 04/02/16 10:55 Dose: 5,000 unit Sodium Chloride (Normal Saline -) 1,000 mls @ 75 mls/hr IV ASDIR [facility] Last Admin: 04/02/16 10:56 Dose: 75 mls/hr Piperacillin Sod/Tazobactam Sod (Zosyn 3.375gm Ivpb (Pre-Docked)) 50 mls @ 100 mls/hr IVPB Q6H-IV [facility] Last Admin: 04/02/16 10:55 Dose: 100 mls/hr Methylprednisolone Sodium Succinate (Solu-Medrol -) 40 mg IVPB Q6H-IV JESSA Last Admin: 04/02/16 10:55 Dose: 40 mg ASSESSMENT AND PLAN: Acute on Chronic Hypoxic Respiratory Failure Right Mainstem Bronchus obstruction from Squamous Cell Ca Post obstructive Pneumonia Sepsis Lactic Acidosis Atelectasis HIV COPD HTN - antibiotics per ID - f/u cultures - on empiric medrol - inhaled bronchodilators - IVF - trend lactate - radiation oncology evaluation - palliative care evaluation for goals of care, advanced directives - poor overall prognosis
--- NOTE | 2016-04-02 13:55 | PN ---
Progress Note, Physician History of Present Illness: patient seen and examined at bedside feels much better today - Current Medication List Current Medications: Active Medications Albuterol Sulfate (Ventolin 0.083% Nebulizer Soln -) 1 amp NEB Q4H PRN PRN Reason: SHORT OF BREATH/WHEEZING Albuterol/Ipratropium (Duoneb -) 1 amp NEB QIDR [facility] Last Admin: 04/02/16 11:42 Dose: 1 amp Emtricitabine/Rilpivirine/Tenofovir (Complera -) 1 each PO DAILY@0800 [facility] Heparin Sodium (Porcine) (Heparin -) 5,000 unit SQ BID [facility] Last Admin: 04/02/16 10:55 Dose: 5,000 unit Piperacillin Sod/Tazobactam Sod (Zosyn 3.375gm Ivpb (Pre-Docked)) 50 mls @ 100 mls/hr IVPB Q6H-IV [facility] Last Admin: 04/02/16 10:55 Dose: 100 mls/hr Sodium Chloride (Normal Saline -) 1,000 mls @ 42 mls/hr IV ASDIR [facility] Methylprednisolone Sodium Succinate (Solu-Medrol -) 40 mg IVPB Q6H-IV [facility] Last Admin: 04/02/16 10:55 Dose: 40 mg - Objective Vital Signs: Vital Signs Temperature 97.3 F L 04/02/16 12:00 Pulse Rate 98 H 04/02/16 13:46 Respiratory Rate 20 04/02/16 13:46 Blood Pressure 90/66 04/02/16 13:46 O2 Sat by Pulse Oximetry (%) 96 04/02/16 10:09 Constitutional: Yes: Cachectic Eyes: Yes: Conjunctiva Clear HENT: Yes: Atraumatic Neck: Yes: Supple Cardiovascular: Yes: Regular Rate and Rhythm Respiratory: Yes: On Nasal O2, Other (right side diminshed breath sounds left side clear) Gastrointestinal: Yes: Soft Edema: No Neurological: Yes: WNL Labs: CBC, BMP 04/02/16 05:20 04/02/16 08:30 - ....Imaging Chest X-ray: Report Reviewed, Image Reviewed Assessment/Plan 70M with HIV HTN squamous cell carcinoma of the lung presents to the ED with worseing SOB found to have Right lung collapse and obstructive secondary to mass. Acute on Chronic Hypoxic Respiratory Failure Right Mainstem Bronchus obstruction from Squamous Cell Ca Post obstructive Pneumonia Sepsis Lactic Acidosis Atelectasis HIV COPD HTN - antibiotics per ID - f/u cultures - on empiric medrol - inhaled bronchodilators - IVF - trend lactate - radiation oncology evaluation - palliative care evaluation for goals of care, advanced directives - poor overall prognosis Neuro: pain control no issues Resp: Postobstructive PNA with atelectasis/sqaumous cell carcinoma of lung/COPD: will give Zosyn ID consult appreciated continue solu-medrol dujose Will need radiation oncology consult for palliative radiation which may relieve the obstruction and improve his pulmonary function ID consult appreciated Lactate cleared patient counselled on gathering family to discuss goals of care continue NC @ 6L (home O2 dose) HTN: patient currently hypotensive hold antihypertensives reassess need for medications HIV: continue home HAART ID following FEN: NS @ 42ml/hr no electrolyte issues sodium controlled diet PPx: HSQ no gi PPx needed Transfer to telemetry
[2016-04-02] MEDS ORDERED: methylPREDNISolone NA SUCC 125 MG/2 ML VIAL ONE (15:57)
[2016-04-02] MEDS: EMTRICITAB/RILPIVIRINE/TENOFOV 1 EACH TABLET PO SCH (15:58)
--- NOTE | 2016-04-02 16:30 | EKG ---
Test Reason : Blood Pressure : / mmHG Vent. Rate : 138 BPM Atrial Rate : 138 BPM P-R Int : 148 ms QRS Dur : 070 ms QT Int : 280 ms P-R-T Axes : 068 014 067 degrees QTc Int : 424 ms POOR DATA QUALITY, INTERPRETATION MAY BE ADVERSELY AFFECTED SINUS TACHYCARDIA RIGHT ATRIAL ENLARGEMENT POSSIBLE ANTERIOR INFARCT , AGE UNDETERMINED ABNORMAL ECG WHEN COMPARED WITH ECG OF 29-JAN-2016 11:45, NO SIGNIFICANT CHANGE WAS FOUND Confirmed by KITA VALLE MD ([id number]) on 04/02/2016 4:30:28 PM Referred By: Confirmed By:KITA VALLE MD
--- NOTE | 2016-04-02 17:59 | PN ---
Progress Note, Physician History of Present Illness: on nasal cannula - Current Medication List Current Medications: Active Medications Albuterol Sulfate (Ventolin 0.083% Nebulizer Soln -) 1 amp NEB Q4H PRN PRN Reason: SHORT OF BREATH/WHEEZING Albuterol/Ipratropium (Duoneb -) 1 amp NEB QIDR [facility] Last Admin: 04/02/16 11:42 Dose: 1 amp Emtricitabine/Rilpivirine/Tenofovir (Complera -) 1 each PO DAILY@0800 [facility] Last Admin: 04/02/16 15:58 Dose: 1 each Heparin Sodium (Porcine) (Heparin -) 5,000 unit SQ BID [facility] Last Admin: 04/02/16 10:55 Dose: 5,000 unit Piperacillin Sod/Tazobactam Sod (Zosyn 3.375gm Ivpb (Pre-Docked)) 50 mls @ 100 mls/hr IVPB Q6H-IV [facility] Last Admin: 04/02/16 15:52 Dose: 100 mls/hr Sodium Chloride (Normal Saline -) 1,000 mls @ 42 mls/hr IV ASDIR [facility] Last Admin: 04/02/16 15:54 Dose: 42 mls/hr Methylprednisolone Sodium Succinate (Solu-Medrol -) 40 mg IVPB Q6H-IV [facility] Last Admin: 04/02/16 15:57 Dose: 40 mg - Objective Vital Signs: Vital Signs Temperature 97.1 F L 04/02/16 14:00 Pulse Rate 98 H 04/02/16 14:00 Respiratory Rate 20 04/02/16 14:00 Blood Pressure 94/68 04/02/16 14:00 O2 Sat by Pulse Oximetry (%) 96 04/02/16 10:09 Constitutional: Yes: No Distress HENT: Yes: Atraumatic Neck: Yes: Supple Respiratory: Yes: Rhonchi Gastrointestinal: Yes: Normal Bowel Sounds Extremities: Yes: WNL Neurological: Yes: Alert, Oriented Labs: CBC, BMP 04/02/16 05:20 04/02/16 08:30 Problem List - Problems (1) Lung cancer Code(s): C34.90 - MALIGNANT NEOPLASM OF UNSP PART OF UNSP BRONCHUS OR LUNG (2) Acute hypoxemic respiratory failure Code(s): J96.01 - ACUTE RESPIRATORY FAILURE WITH HYPOXIA (3) HIV (human immunodeficiency virus infection) Code(s): Z21 - ASYMPTOMATIC HUMAN IMMUNODEFICIENCY VIRUS INFECTION STATUS (4) Pneumonia Code(s): J18.9 - PNEUMONIA, UNSPECIFIED ORGANISM (5) COPD (chronic obstructive pulmonary disease) Code(s): J44.9 - CHRONIC OBSTRUCTIVE PULMONARY DISEASE, UNSPECIFIED Assessment/Plan 1.acute respiratory failure/pna pt on nc on ivabx stable 2.hiv stable on meds dr wiley on cosult 3.copd duo nebs 4.htn stable on meds 5.hld 6.lung ca dvt ppx pulmonary on board oncology consult
--- NOTE | 2016-04-02 19:29 | PN ---
Progress Note (short form) - Note Progress Note: Radiation Oncology Pt seen, chart/films reviewed, full consult dictated. 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 Admitted to ICU for hypoxemic respiratory failure 2/2 lung collapse and postobstructive pneumonia from obstruction by tumor. If he can be medically stabilized from the respiratory standpoint, pt will be a candidate for palliative RT directed at JOHNNY bronchus tumor with goal of improving lung aeration and clearing infection. Pt and family understand his very poor prognosis even if he receives RT. Will follow for improvement in clinical status.
--- NOTE | 2016-04-02 19:53 | CONS ---
DATE OF CONSULTATION: 04/02/2016 REFERRING PHYSICIAN: Bharati Alvarez M.D. REASON FOR CONSULTATION: Right lung collapse secondary to lung cancer. HISTORY OF PRESENT ILLNESS: The patient is a 70-year-old gentleman with severe COPD on home O2 who was diagnosed with a right lung cancer in January 2016. CT of the chest showed right upper lobe consolidation and precarinal lymph node measuring 1.[address] Marquez demonstrated a mucous plug and an endobronchial tumor in the right mainstem bronchus. Biopsy demonstrated a well to moderately differentiated squamous cell carcinoma. He had admission to an outside hospital and has not followed up for further management of his lung cancer. He developed increasing shortness of breath and chest pain despite increasing his home oxygen. In the emergency room, he was found to be hypoxemic and chest x-ray suggested postobstructive pneumonia. He was admitted for respiratory failure. CT of the chest showed no evidence of pulmonary embolus. There is now total opacification and collapse of the right lung with air bronchogram and loss of volume and shift of the heart and mediastinal structures toward the right. There is interstitial thickening and patchy opacities in the left lung measuring up to 9 mm. Patient is being monitored in the intensive care unit. He is being treated for postobstructive pneumonia. PAST MEDICAL HISTORY: HIV. COPD on home oxygen. Hypertension. Hyperlipidemia. No history of radiation therapy or collagen vascular disease. ALLERGIES: No known drug allergies. CURRENT MEDICATIONS: Solu-Medrol, Zosyn, heparin subcutaneous, albuterol/ Atrovent nebulizer. SOCIAL HISTORY: He is . He is a former smoker greater than 10 years. REVIEW OF SYSTEMS: He has shortness of breath at rest and difficulty lying flat. He denies hoarseness, dysphagia, or chest pain. He has a dry cough. He denies hemoptysis. PHYSICAL EXAMINATION: General: Chronically ill cachectic male lying in the hospital bed. His and daughters are at the bedside. Vital Signs: Temperature 97.1, blood pressure 94/68, heart rate 98, respiratory rate 20. HEENT: The oral cavity is clear. There is no adenopathy in the supraclavicular region. Chest: No breath sounds on the right. No axillary adenopathy. Cardiovascular: Heart rhythm is regular. Abdomen: Soft, nontender. Nondistended. Extremities: No edema. PATHOLOGIC DATA: See HPI. RADIOLOGIC DATA: See HPI. IMPRESSION: A 70-year-old gentleman with HIV, oxygen dependent chronic obstructive pulmonary disease, with right lung collapse and postobstructive pneumonia secondary to endobronchial squamous cell carcinoma. I discussed the patient's diagnosis and poor prognosis with him and his family. They understand that there are limited options. I agree with continuing supportive care at this time. He is at high risk for respiratory failure due to the obstruction in the right mainstem bronchus. We discussed palliation of the obstruction and hopefully improvement in aeration of the right lung with external beam radiation therapy. We discussed the course of 5-6 treatments once he is further stabilized. At this time, I would recommend continuing supportive measures and antibiotic therapy. If respiratory status improves and he can be stabilized on the floor, he will be reevaluated for palliative radiation therapy. At this time he is high risk for leaving the hospital to receive treatment. Will continue to follow him with you. Thank you for asking me to see this patient. ULISES HERNANDEZ M.D. [id number] MTDD
--- NOTE | 2016-04-02 23:46 | PN ---
Progress Note (short form) - Note Progress Note: Patient seen and examined Denies any complaints Last Vital Signs Temp Pulse Resp BP Pulse Ox 97.1 F L 102 H 20 92/53 95 04/02/16 14:00 04/02/16 18:05 04/02/16 18:05 04/02/16 18:05 04/02/16 17:30 HEENT: ALESIA, EOM Intact Cor: RSR, No murmurs, No gallops Lungs: decreased at bases Abd: Soft, Normal bowel sounds, No organomegaly Ext:No significant edema Abnormal Lab Results 04/02/16 04/02/16 04/02/16 04:20 05:20 08:30 WBC 18.0 H D RBC 3.99 L Hgb 8.1 L D Hct 26.9 L MCV 67.3 L MCHC 30.2 L RDW 17.5 H Plt Count 669 H Neutrophils % 94.3 H Lymphocytes % 3.5 L D Monocytes % 2.1 L ABG pH 7.47 H ABG pO2 at Pt Temp 66.6 L D ABG O2 Content 10.7 L ABG Base Excess 2.4 H Sodium 131 L Anion Gap 5 L Random Glucose 130 H Calcium 8.1 L AST 84 H D ALT 103 H D Alkaline Phosphatase 134 H D Total Protein 5.7 L Albumin 1.4 L Current Medications Albuterol Sulfate (Ventolin 0.083% Nebulizer Soln -) 1 amp NEB Q4H PRN PRN Reason: SHORT OF BREATH/WHEEZING Albuterol/Ipratropium (Duoneb -) 1 amp NEB QIDR [facility] Last Admin: 04/02/16 23:12 Dose: 1 amp Emtricitabine/Rilpivirine/Tenofovir (Complera -) 1 each PO DAILY@0800 [facility] Last Admin: 04/02/16 15:58 Dose: 1 each Heparin Sodium (Porcine) (Heparin -) 5,000 unit SQ BID [facility] Last Admin: 04/02/16 21:31 Dose: 5,000 unit Piperacillin Sod/Tazobactam Sod (Zosyn 3.375gm Ivpb (Pre-Docked)) 50 mls @ 100 mls/hr IVPB Q6H-IV [facility] Last Admin: 04/02/16 21:31 Dose: 100 mls/hr Sodium Chloride (Normal Saline -) 1,000 mls @ 42 mls/hr IV ASDIR [facility] Last Admin: 04/02/16 15:54 Dose: 42 mls/hr Methylprednisolone Sodium Succinate (Solu-Medrol -) 40 mg IVPB Q6H-IV [facility] Last Admin: 04/02/16 22:30 Dose: 40 mg A/P 70 y/o patient with HIV, severe COPD, recently diagnosed squamous cell lung cancer, now with shortness of breath. CT chest Rt. lung collapse, mediastinal shift, post obstructive pneumonia ICU team and mysef discussed with paient and family overall situation on 04/01/15 about impending resp. failure due to underlying malignancy. aggressiveness of the tumor especially given his immunocompromised status. Poor performance status and overallpoor prognosis. discussed that they need to address advance directives. Overall seems clinically improved on Antibiotics supportive care RT consult noted
[2016-04-03] MEDS: PIPERACILLIN/TAZOB 3.375 GM 50 ML IVPB SCH ×4 (02:43→21:14)
[2016-04-03] MEDS: methylPREDNISolone NA SUCC 40 MG/1 ML VIAL IVPB SCH ×4 (03:43→21:14)
[2016-04-03] MEDS ORDERED: ALBUTEROL SO4 2.5/IPRATROPIUM 0.5 INH SOL 3 ML VIAL.NEB. NEB ONE ×2 (06:30→10:48)
[2016-04-03] MEDS: ALBUTEROL SO4 2.5/IPRATROPIUM 0.5 INH SOL 3 ML VIAL.NEB. NEB SCH ×4 (06:30→23:31)
[2016-04-03 07:28] LABS: ARTERIAL BLD GAS O2 SATURATION 94.6 % (90-98.9); ARTERIAL BLOOD GAS BASE EXCESS 2.2 meq/l (-2-2); ARTERIAL BLOOD GAS HCO3 25.9 meq/L (22-26); ARTERIAL BLOOD GAS PO2 72.4 mmHg (70-100); ARTERIAL BLOOD GAS pH 7.44 (7.35-7.45)
[2016-04-03 07:33] LABS: ALLENS TEST POSITIVE; ART PUNCT SITE RIGHT RADIAL; LPM/O2% 4L; PT. ON O2? YES; TYPE OF O2 NASAL CANNULA
[2016-04-03] MEDS: EMTRICITAB/RILPIVIRINE/TENOFOV 1 EACH TABLET PO SCH (08:30)
[2016-04-03] MEDS ORDERED: PT OWN MED DRAWER 7, Y5N ONE ×2 (09:08→21:00)
[2016-04-03] MEDS: HEPARIN NA (PORCINE) 5,000 UNITS/ML 1ML VIAL SQ SCH ×2 (09:24→21:14)
--- NOTE | 2016-04-03 14:16 | PN ---
Progress Note, Physician History of Present Illness: PULMONARY ALERT,FEELING BETTER,-RESP DISTRESS ON NASAL O2. - Current Medication List Current Medications: Active Medications Albuterol Sulfate (Ventolin 0.083% Nebulizer Soln -) 1 amp NEB Q4H PRN PRN Reason: SHORT OF BREATH/WHEEZING Albuterol/Ipratropium (Duoneb -) 1 amp NEB QIDR [facility] Last Admin: 04/03/16 11:01 Dose: Not Given Emtricitabine/Rilpivirine/Tenofovir (Complera -) 1 each PO DAILY@0800 [facility] Last Admin: 04/03/16 08:30 Dose: 1 each Heparin Sodium (Porcine) (Heparin -) 5,000 unit SQ BID [facility] Last Admin: 04/03/16 09:24 Dose: 5,000 unit Piperacillin Sod/Tazobactam Sod (Zosyn 3.375gm Ivpb (Pre-Docked)) 50 mls @ 100 mls/hr IVPB Q6H-IV [facility] Last Admin: 04/03/16 09:24 Dose: 100 mls/hr Sodium Chloride (Normal Saline -) 1,000 mls @ 42 mls/hr IV ASDIR [facility] Last Admin: 04/02/16 15:54 Dose: 42 mls/hr Methylprednisolone Sodium Succinate (Solu-Medrol -) 40 mg IVPB Q6H-IV [facility] Last Admin: 04/03/16 09:23 Dose: 40 mg - Objective Vital Signs: Vital Signs Temperature 97.7 F 04/03/16 09:18 Pulse Rate 94 H 04/03/16 09:21 Respiratory Rate 20 04/03/16 09:18 Blood Pressure 100/54 04/03/16 09:18 O2 Sat by Pulse Oximetry (%) 98 04/03/16 09:21 Constitutional: Yes: Calm, Thin Eyes: Yes: WNL HENT: Yes: WNL Neck: Yes: WNL Cardiovascular: Yes: Regular Rate and Rhythm, S1, S2 Respiratory: Yes: Diminished Gastrointestinal: Yes: WNL Extremities: Yes: WNL Edema: No Labs: CBC, BMP Selected Entries 04/21/12 04/21/12 00:00 22:00 Pulse Auscultation Auscultation Assessment Method [Apical] Laboratory Tests 04/02/16 04/03/16 12:40 07:24 ABG pH 7.44 ABG pCO2 at Pt Temp 38.3 ABG pO2 at Pt Temp 72.4 ABG HCO3 25.9 ABG O2 Sat (Measured) 94.6 Oxygen Flow Rate 4l Lactic Acid 0.827 Laboratory Tests 04/02/16 12:40 Lactic Acid 0.827 Problem List - Problems (1) Acute hypoxemic respiratory failure Code(s): J96.01 - ACUTE RESPIRATORY FAILURE WITH HYPOXIA (2) Acute respiratory distress Code(s): J80 - ACUTE RESPIRATORY DISTRESS SYNDROME (3) HIV (human immunodeficiency virus infection) Code(s): Z21 - ASYMPTOMATIC HUMAN IMMUNODEFICIENCY VIRUS INFECTION STATUS (4) Pneumonia Code(s): J18.9 - PNEUMONIA, UNSPECIFIED ORGANISM (5) Lung cancer Code(s): C34.90 - MALIGNANT NEOPLASM OF UNSP PART OF UNSP BRONCHUS OR LUNG (6) Abnormal LFTs Code(s): R79.89 - OTHER SPECIFIED ABNORMAL FINDINGS OF BLOOD CHEMISTRY (7) COPD (chronic obstructive pulmonary disease) Code(s): J44.9 - CHRONIC OBSTRUCTIVE PULMONARY DISEASE, UNSPECIFIED (8) Lung cancer, hilus Code(s): C34.00 - MALIGNANT NEOPLASM OF UNSPECIFIED MAIN BRONCHUS (9) Lung mass Code(s): R91.8 - OTHER NONSPECIFIC ABNORMAL FINDING OF LUNG FIELD Assessment/Plan ASSESSMENT AND PLAN: Acute on Chronic Hypoxic Respiratory Failure improved Right Mainstem Bronchus obstruction from Squamous Cell Ca Post obstructive Pneumonia Sepsis Lactic Acidosis improved Atelectasis HIV COPD HTN - antibiotics per ID - medrol - inhaled bronchodilators - IVF - palliative care evaluation for goals of care, advanced directives - poor overall prognosis - pallative RT DR MILLER
--- NOTE | 2016-04-03 14:39 | PN ---
Progress Note (short form) - Note Progress Note: Radiation Oncology: patient improving . We will re evaluate on Wednesday.
[2016-04-03] MEDS: SODIUM CHLORIDE 1,000 ML IV SCH ×2 (14:40→18:38)
--- NOTE | 2016-04-03 14:59 | PN ---
Progress Note, Physician History of Present Illness: Resting comfortably Breathing non -labored on nasal cannula No c/o chest pain or dyspnea Afebrile WBC improved 18K - Current Medication List Current Medications: Active Medications Albuterol Sulfate (Ventolin 0.083% Nebulizer Soln -) 1 amp NEB Q4H PRN PRN Reason: SHORT OF BREATH/WHEEZING Albuterol/Ipratropium (Duoneb -) 1 amp NEB QIDR [facility] Last Admin: 04/03/16 11:01 Dose: Not Given Emtricitabine/Rilpivirine/Tenofovir (Complera -) 1 each PO DAILY@0800 [facility] Last Admin: 04/03/16 08:30 Dose: 1 each Heparin Sodium (Porcine) (Heparin -) 5,000 unit SQ BID [facility] Last Admin: 04/03/16 09:24 Dose: 5,000 unit Piperacillin Sod/Tazobactam Sod (Zosyn 3.375gm Ivpb (Pre-Docked)) 50 mls @ 100 mls/hr IVPB Q6H-IV [facility] Last Admin: 04/03/16 14:36 Dose: 100 mls/hr Sodium Chloride (Normal Saline -) 1,000 mls @ 42 mls/hr IV ASDIR [facility] Last Admin: 04/03/16 14:40 Dose: Not Given Methylprednisolone Sodium Succinate (Solu-Medrol -) 40 mg IVPB Q6H-IV [facility] Last Admin: 04/03/16 14:35 Dose: 40 mg - Objective Vital Signs: Vital Signs Temperature 97.0 F L 04/03/16 14:00 Pulse Rate 102 H 04/03/16 14:00 Respiratory Rate 20 04/03/16 14:00 Blood Pressure 98/56 04/03/16 14:00 O2 Sat by Pulse Oximetry (%) 98 04/03/16 09:21 Constitutional: Yes: Cachectic Cardiovascular: Yes: Regular Rate and Rhythm, S1, S2 Respiratory: Yes: Diminished Gastrointestinal: Yes: Normal Bowel Sounds, Soft. No: Tenderness Edema: No Labs: CBC, BMP 04/02/16 05:20 04/02/16 08:30 Assessment/Plan Postobstructive pneumonitis Lung ca HIV+ stable Continue empiric zosyn ART
--- NOTE | 2016-04-03 17:06 | PN ---
Progress Note (short form) - Note Progress Note: dr Wolf covering from monday 04/03 - wednesday 04/05 Problem List - Problems (1) Lung cancer Code(s): C34.90 - MALIGNANT NEOPLASM OF UNSP PART OF UNSP BRONCHUS OR LUNG (2) Acute hypoxemic respiratory failure Code(s): J96.01 - ACUTE RESPIRATORY FAILURE WITH HYPOXIA (3) HIV (human immunodeficiency virus infection) Code(s): Z21 - ASYMPTOMATIC HUMAN IMMUNODEFICIENCY VIRUS INFECTION STATUS (4) Pneumonia Code(s): J18.9 - PNEUMONIA, UNSPECIFIED ORGANISM (5) COPD (chronic obstructive pulmonary disease) Code(s): J44.9 - CHRONIC OBSTRUCTIVE PULMONARY DISEASE, UNSPECIFIED
--- NOTE | 2016-04-03 18:35 | PN ---
Progress Note (short form) - Note Progress Note: Patient seen and examined Non productive cough . Improvement in SOB and dyspnea., On nasal Oxygen. Denies chest pains Last Vital Signs Temp Pulse Resp BP Pulse Ox 97.0 F L 102 H 20 98/56 98 04/03/16 14:00 04/03/16 14:00 04/03/16 14:00 04/03/16 14:00 04/03/16 09:21 Cachectic appearing HEENT: ALESIA, EOM Intact Oropharynx: No thrush, No mucositisedentulous , but for 2 teeth Neck: Supple Nodes: Without adenopathy Cor: RSR, No murmurs, No gallops Lungs:diminished breath sounds Abd: Soft, Normal bowel sounds, No organomegaly Ext:No significant edema Skin: No rashes, Integument intact CBC, BMP 04/02/16 05:20 04/02/16 08:30 Current Medications Generic Name Dose Route Start Last Admin Trade Name Freq PRN Reason Stop Dose Admin Albuterol Sulfate 1 amp 04/01/16 16:49 Ventolin 0.083% Nebulizer Soln - NEB Q4H PRN SHORT OF BREATH/WHEEZING Albuterol/Ipratropium 1 amp 04/01/16 18:00 04/03/16 17:05 Duoneb - NEB Not Given QIDR [facility] Emtricitabine/Rilpivirine/Tenofovir 1 each 04/02/16 10:00 04/03/16 08:30 Complera - PO 1 each DAILY@0800 [facility] Administration Heparin Sodium (Porcine) 5,000 unit 04/01/16 22:00 04/03/16 09:24 Heparin - SQ 5,000 unit BID [facility] Administration Piperacillin Sod/Tazobactam Sod 50 mls @ 100 mls/hr 04/02/16 09:15 04/03/16 14: 36 Zosyn 3.375gm Ivpb (Pre-Docked) IVPB 100 mls/hr Q6H-IV [facility] Administration Sodium Chloride 1,000 mls @ 42 mls/hr 04/02/16 13:45 04/03/16 14:40 Normal Saline - IV Not Given ASDIR [facility] Methylprednisolone Sodium Succinate 40 mg 04/02/16 22:00 04/03/16 14:35 Solu-Medrol - IVPB 40 mg Q6H-IV [facility] Administration Impression: SCC lung RUL collapse Pneumonia HIV Plan: current therapy Clinical course will determine if patient will become a suitable candidate for any systemic therapy.
[2016-04-03] MEDS ORDERED: ALBUTEROL SO4 0.083% IH SOL 2.5 MG/3 ML VIAL.NEB. NEB PRN (21:55)
[2016-04-04] MEDS: PIPERACILLIN/TAZOB 3.375 GM 50 ML IVPB SCH ×4 (02:42→21:03)
[2016-04-04] MEDS: methylPREDNISolone NA SUCC 40 MG/1 ML VIAL IVPB SCH ×4 (02:42→21:03)
[2016-04-04] MEDS: ALBUTEROL SO4 2.5/IPRATROPIUM 0.5 INH SOL 3 ML VIAL.NEB. NEB SCH ×3 (07:00→19:15)
[2016-04-04] MEDS ORDERED: PT OWN MED DRAWER 7, Y5N ONE (07:57)
[2016-04-04] MEDS: HEPARIN NA (PORCINE) 5,000 UNITS/ML 1ML VIAL SQ SCH ×2 (09:19→21:03)
[2016-04-04] MEDS: EMTRICITAB/RILPIVIRINE/TENOFOV 1 EACH TABLET PO SCH (09:19)
--- NOTE | 2016-04-04 10:56 | PN ---
Progress Note, Physician History of Present Illness: pulmonary alert,feeling better,nad - Current Medication List Current Medications: Active Medications Albuterol Sulfate (Ventolin 0.083% Nebulizer Soln -) 1 amp NEB Q4H PRN PRN Reason: SHORT OF BREATH/WHEEZING Albuterol/Ipratropium (Duoneb -) 1 amp NEB QIDR [facility] Last Admin: 04/04/16 07:00 Dose: 1 amp Emtricitabine/Rilpivirine/Tenofovir (Complera -) 1 each PO DAILY@0800 [facility] Last Admin: 04/04/16 09:19 Dose: 1 each Heparin Sodium (Porcine) (Heparin -) 5,000 unit SQ BID [facility] Last Admin: 04/04/16 09:19 Dose: 5,000 unit Piperacillin Sod/Tazobactam Sod (Zosyn 3.375gm Ivpb (Pre-Docked)) 50 mls @ 100 mls/hr IVPB Q6H-IV [facility] Last Admin: 04/04/16 08:40 Dose: 100 mls/hr Sodium Chloride (Normal Saline -) 1,000 mls @ 42 mls/hr IV ASDIR [facility] Last Admin: 04/03/16 18:38 Dose: 42 mls/hr Methylprednisolone Sodium Succinate (Solu-Medrol -) 40 mg IVPB Q6H-IV [facility] Last Admin: 04/04/16 08:40 Dose: 40 mg - Objective Vital Signs: Vital Signs Temperature 97.6 F 04/04/16 09:22 Pulse Rate 104 H 04/04/16 09:22 Respiratory Rate 20 04/04/16 09:22 Blood Pressure 102/66 04/04/16 09:22 O2 Sat by Pulse Oximetry (%) 98 04/04/16 04:12 Constitutional: Yes: Calm, Thin Eyes: Yes: WNL HENT: Yes: WNL Neck: Yes: WNL Cardiovascular: Yes: Regular Rate and Rhythm, S1, S2 Respiratory: Yes: Rhonchi (few scattered gracie rhonchi) Gastrointestinal: Yes: Normal Bowel Sounds, Soft Extremities: Yes: WNL Edema: No Problem List - Problems (1) Acute hypoxemic respiratory failure Code(s): J96.01 - ACUTE RESPIRATORY FAILURE WITH HYPOXIA (2) Acute respiratory distress Code(s): J80 - ACUTE RESPIRATORY DISTRESS SYNDROME (3) HIV (human immunodeficiency virus infection) Code(s): Z21 - ASYMPTOMATIC HUMAN IMMUNODEFICIENCY VIRUS INFECTION STATUS (4) Pneumonia Code(s): J18.9 - PNEUMONIA, UNSPECIFIED ORGANISM (5) Lung cancer Code(s): C34.90 - MALIGNANT NEOPLASM OF UNSP PART OF UNSP BRONCHUS OR LUNG (6) Abnormal LFTs Code(s): R79.89 - OTHER SPECIFIED ABNORMAL FINDINGS OF BLOOD CHEMISTRY (7) COPD (chronic obstructive pulmonary disease) Code(s): J44.9 - CHRONIC OBSTRUCTIVE PULMONARY DISEASE, UNSPECIFIED (8) Lung cancer, hilus Code(s): C34.00 - MALIGNANT NEOPLASM OF UNSPECIFIED MAIN BRONCHUS (9) Lung mass Code(s): R91.8 - OTHER NONSPECIFIC ABNORMAL FINDING OF LUNG FIELD Assessment/Plan ASSESSMENT AND PLAN: Acute on Chronic Hypoxic Respiratory Failure improved Right Mainstem Bronchus obstruction from Squamous Cell Ca Post obstructive Pneumonia Sepsis Lactic Acidosis improved Atelectasis HIV COPD HTN - antibiotics per ID - medrol - inhaled bronchodilators - IVF - poor overall prognosis - pallative RT - chemo as per oncology DR MILLER
--- NOTE | 2016-04-04 11:40 | PN ---
Progress Note (short form) - Note Progress Note: Patient seen and examined No acute distress No chest pain Poor appetite Last Vital Signs Temp Pulse Resp BP Pulse Ox 97.6 F 78 20 102/66 96 04/04/16 09:22 04/04/16 11:03 04/04/16 09:22 04/04/16 09:22 04/04/16 11:03 HEENT: ALESIA, EOM Intact Oropharynx: No thrush, No mucositis, 2 front teeth, edentulous Cor: RSR, No murmurs, No gallops Lungs:diminished breath sounds bilaterally Abd: Soft, Normal bowel sounds, No organomegaly Ext:No significant edema; clubbing Skin: No rashes, Integument intact Problem List - Problems (1) Lung cancer, hilus Assessment/Plan: SCC- discussed with patient importance of functional (performance) status and need to improve clinical state before systemic therapy can be entertained. Code(s): C34.00 - MALIGNANT NEOPLASM OF UNSPECIFIED MAIN BRONCHUS (2) RLL pneumonia Assessment/Plan: Post obstructive pneumonia-under therapy Code(s): J18.9 - PNEUMONIA, UNSPECIFIED ORGANISM (3) Acute hypoxemic respiratory failure Code(s): J96.01 - ACUTE RESPIRATORY FAILURE WITH HYPOXIA (4) COPD (chronic obstructive pulmonary disease) Code(s): J44.9 - CHRONIC OBSTRUCTIVE PULMONARY DISEASE, UNSPECIFIED (5) HIV disease Assessment/Plan: Under therapy. Code(s): B20 - HUMAN IMMUNODEFICIENCY VIRUS [HIV] DISEASE
[2016-04-04] MEDS: SODIUM CHLORIDE 1,000 ML IV SCH ×2 (16:18→21:05)
--- NOTE | 2016-04-04 22:41 | PN ---
Progress Note, Physician History of Present Illness: No new change - Current Medication List Current Medications: Active Medications Albuterol Sulfate (Ventolin 0.083% Nebulizer Soln -) 1 amp NEB Q4H PRN PRN Reason: SHORT OF BREATH/WHEEZING Albuterol/Ipratropium (Duoneb -) 1 amp NEB QIDR [facility] Last Admin: 04/04/16 19:15 Dose: 1 amp Emtricitabine/Rilpivirine/Tenofovir (Complera -) 1 each PO DAILY@0800 [facility] Last Admin: 04/04/16 09:19 Dose: 1 each Heparin Sodium (Porcine) (Heparin -) 5,000 unit SQ BID [facility] Last Admin: 04/04/16 21:03 Dose: 5,000 unit Piperacillin Sod/Tazobactam Sod (Zosyn 3.375gm Ivpb (Pre-Docked)) 50 mls @ 100 mls/hr IVPB Q6H-IV [facility] Last Admin: 04/04/16 21:03 Dose: 100 mls/hr Sodium Chloride (Normal Saline -) 1,000 mls @ 42 mls/hr IV ASDIR [facility] Last Admin: 04/04/16 21:05 Dose: 42 mls/hr Methylprednisolone Sodium Succinate (Solu-Medrol -) 40 mg IVPB Q6H-IV [facility] Last Admin: 04/04/16 21:03 Dose: 40 mg - Objective Vital Signs: Vital Signs Temperature 97.7 F 04/04/16 16:30 Pulse Rate 111 H 04/04/16 21:08 Respiratory Rate 20 04/04/16 16:30 Blood Pressure 86/50 04/04/16 16:30 O2 Sat by Pulse Oximetry (%) 95 04/04/16 21:08 Cardiovascular: Yes: WNL, Regular Rate and Rhythm Respiratory: Yes: Other (Decreased bs b/l) Gastrointestinal: Yes: WNL, Normal Bowel Sounds, Soft Labs: CBC, BMP 04/02/16 05:20 04/02/16 08:30 Problem List - Problems (1) Pneumonia Assessment/Plan: Cont IV zosyn Code(s): J18.9 - PNEUMONIA, UNSPECIFIED ORGANISM (2) COPD (chronic obstructive pulmonary disease) Assessment/Plan: Taper steroids as per pulmonary Code(s): J44.9 - CHRONIC OBSTRUCTIVE PULMONARY DISEASE, UNSPECIFIED (3) Acute hypoxemic respiratory failure Code(s): J96.01 - ACUTE RESPIRATORY FAILURE WITH HYPOXIA (4) HIV (human immunodeficiency virus infection) Code(s): Z21 - ASYMPTOMATIC HUMAN IMMUNODEFICIENCY VIRUS INFECTION STATUS
[2016-04-05] MEDS: ALBUTEROL SO4 2.5/IPRATROPIUM 0.5 INH SOL 3 ML VIAL.NEB. NEB SCH ×4 (00:04→19:00)
[2016-04-05] MEDS: methylPREDNISolone NA SUCC 40 MG/1 ML VIAL IVPB SCH ×3 (02:21→17:39)
[2016-04-05] MEDS: PIPERACILLIN/TAZOB 3.375 GM 50 ML IVPB SCH ×4 (02:22→20:29)
[2016-04-05] MEDS ORDERED: PT OWN MED DRAWER 7, Y5N ONE (08:03)
[2016-04-05] MEDS: HEPARIN NA (PORCINE) 5,000 UNITS/ML 1ML VIAL SQ SCH ×2 (09:22→21:24)
[2016-04-05] MEDS: EMTRICITAB/RILPIVIRINE/TENOFOV 1 EACH TABLET PO SCH (09:23)
--- NOTE | 2016-04-05 12:19 | PN ---
Progress Note, Physician History of Present Illness: pulmonary alert,feeling better,-sob,-cp - Current Medication List Current Medications: Active Medications Albuterol Sulfate (Ventolin 0.083% Nebulizer Soln -) 1 amp NEB Q4H PRN PRN Reason: SHORT OF BREATH/WHEEZING Albuterol/Ipratropium (Duoneb -) 1 amp NEB QIDR [facility] Last Admin: 04/05/16 12:00 Dose: 1 amp Emtricitabine/Rilpivirine/Tenofovir (Complera -) 1 each PO DAILY@0800 [facility] Last Admin: 04/05/16 09:23 Dose: 1 each Heparin Sodium (Porcine) (Heparin -) 5,000 unit SQ BID [facility] Last Admin: 04/05/16 09:22 Dose: 5,000 unit Piperacillin Sod/Tazobactam Sod (Zosyn 3.375gm Ivpb (Pre-Docked)) 50 mls @ 100 mls/hr IVPB Q6H-IV [facility] Last Admin: 04/05/16 09:23 Dose: 100 mls/hr Sodium Chloride (Normal Saline -) 1,000 mls @ 42 mls/hr IV ASDIR [facility] Last Admin: 04/04/16 21:05 Dose: 42 mls/hr Methylprednisolone Sodium Succinate (Solu-Medrol -) 40 mg IVPB Q6H-IV [facility] Last Admin: 04/05/16 09:22 Dose: 40 mg - Objective Vital Signs: Vital Signs Temperature 97.9 F 04/05/16 09:28 Pulse Rate 101 H 04/05/16 12:00 Respiratory Rate 20 04/05/16 09:28 Blood Pressure 104/64 04/05/16 09:28 O2 Sat by Pulse Oximetry (%) 93 L 04/05/16 12:00 Constitutional: Yes: Calm, Thin Eyes: Yes: WNL HENT: Yes: WNL Neck: Yes: WNL Cardiovascular: Yes: Regular Rate and Rhythm, S1, S2 Respiratory: Yes: Diminished Gastrointestinal: Yes: Normal Bowel Sounds, Soft Extremities: Yes: WNL Edema: No Labs: CBC, BMP 04/02/16 05:20 04/02/16 08:30 Problem List - Problems (1) Acute hypoxemic respiratory failure Code(s): J96.01 - ACUTE RESPIRATORY FAILURE WITH HYPOXIA (2) Acute respiratory distress Code(s): J80 - ACUTE RESPIRATORY DISTRESS SYNDROME (3) HIV (human immunodeficiency virus infection) Code(s): Z21 - ASYMPTOMATIC HUMAN IMMUNODEFICIENCY VIRUS INFECTION STATUS (4) Pneumonia Code(s): J18.9 - PNEUMONIA, UNSPECIFIED ORGANISM (5) Lung cancer Code(s): C34.90 - MALIGNANT NEOPLASM OF UNSP PART OF UNSP BRONCHUS OR LUNG (6) Abnormal LFTs Code(s): R79.89 - OTHER SPECIFIED ABNORMAL FINDINGS OF BLOOD CHEMISTRY (7) COPD (chronic obstructive pulmonary disease) Code(s): J44.9 - CHRONIC OBSTRUCTIVE PULMONARY DISEASE, UNSPECIFIED (8) Lung cancer, hilus Code(s): C34.00 - MALIGNANT NEOPLASM OF UNSPECIFIED MAIN BRONCHUS (9) Lung mass Code(s): R91.8 - OTHER NONSPECIFIC ABNORMAL FINDING OF LUNG FIELD Assessment/Plan ASSESSMENT AND PLAN: Acute on Chronic Hypoxic Respiratory Failure improved Right Mainstem Bronchus obstruction from Squamous Cell Ca Post obstructive Pneumonia Sepsis Lactic Acidosis improved Atelectasis HIV COPD HTN - antibiotics per ID - medrol taper - inhaled bronchodilators - IVF - poor overall prognosis - pallative RT - chemo as per oncology DR MLILER
[2016-04-05] MEDS: SODIUM CHLORIDE 1,000 ML IV SCH (18:23)
--- NOTE | 2016-04-05 19:55 | PN ---
Progress Note, Physician History of Present Illness: No new change - Current Medication List Current Medications: Active Medications Albuterol Sulfate (Ventolin 0.083% Nebulizer Soln -) 1 amp NEB Q4H PRN PRN Reason: SHORT OF BREATH/WHEEZING Albuterol/Ipratropium (Duoneb -) 1 amp NEB QIDR [facility] Last Admin: 04/05/16 12:00 Dose: 1 amp Emtricitabine/Rilpivirine/Tenofovir (Complera -) 1 each PO DAILY@0800 [facility] Last Admin: 04/05/16 09:23 Dose: 1 each Heparin Sodium (Porcine) (Heparin -) 5,000 unit SQ BID [facility] Last Admin: 04/05/16 09:22 Dose: 5,000 unit Piperacillin Sod/Tazobactam Sod (Zosyn 3.375gm Ivpb (Pre-Docked)) 50 mls @ 100 mls/hr IVPB Q6H-IV [facility] Last Admin: 04/05/16 15:14 Dose: 100 mls/hr Sodium Chloride (Normal Saline -) 1,000 mls @ 42 mls/hr IV ASDIR [facility] Last Admin: 04/05/16 18:23 Dose: Not Given Methylprednisolone Sodium Succinate (Solu-Medrol -) 40 mg IVPB Q8H-IV [facility] Last Admin: 04/05/16 17:39 Dose: 40 mg - Objective Vital Signs: Vital Signs Temperature 97.9 F 04/05/16 16:05 Pulse Rate 112 H 04/05/16 16:05 Respiratory Rate 20 04/05/16 16:05 Blood Pressure 88/50 04/05/16 16:05 O2 Sat by Pulse Oximetry (%) 93 L 04/05/16 12:00 Cardiovascular: Yes: WNL, Regular Rate and Rhythm Respiratory: Yes: Other (Decreased bs b/l) Gastrointestinal: Yes: WNL, Normal Bowel Sounds, Soft Labs: CBC, BMP 04/02/16 05:20 04/02/16 08:30 Problem List - Problems (1) Pneumonia Assessment/Plan: Cont IV zosyn Code(s): J18.9 - PNEUMONIA, UNSPECIFIED ORGANISM (2) COPD (chronic obstructive pulmonary disease) Assessment/Plan: Taper steroids as per pulmonary Code(s): J44.9 - CHRONIC OBSTRUCTIVE PULMONARY DISEASE, UNSPECIFIED (3) Acute hypoxemic respiratory failure Code(s): J96.01 - ACUTE RESPIRATORY FAILURE WITH HYPOXIA (4) HIV (human immunodeficiency virus infection) Code(s): Z21 - ASYMPTOMATIC HUMAN IMMUNODEFICIENCY VIRUS INFECTION STATUS
--- NOTE | 2016-04-05 19:55 | PN ---
Progress Note, Physician History of Present Illness: This was entered in error - Current Medication List Current Medications: Active Medications Albuterol Sulfate (Ventolin 0.083% Nebulizer Soln -) 1 amp NEB Q4H PRN PRN Reason: SHORT OF BREATH/WHEEZING Albuterol/Ipratropium (Duoneb -) 1 amp NEB QIDR [facility] Last Admin: 04/05/16 12:00 Dose: 1 amp Emtricitabine/Rilpivirine/Tenofovir (Complera -) 1 each PO DAILY@0800 [facility] Last Admin: 04/05/16 09:23 Dose: 1 each Heparin Sodium (Porcine) (Heparin -) 5,000 unit SQ BID [facility] Last Admin: 04/05/16 09:22 Dose: 5,000 unit Piperacillin Sod/Tazobactam Sod (Zosyn 3.375gm Ivpb (Pre-Docked)) 50 mls @ 100 mls/hr IVPB Q6H-IV [facility] Last Admin: 04/05/16 15:14 Dose: 100 mls/hr Sodium Chloride (Normal Saline -) 1,000 mls @ 42 mls/hr IV ASDIR [facility] Last Admin: 04/05/16 18:23 Dose: Not Given Methylprednisolone Sodium Succinate (Solu-Medrol -) 40 mg IVPB Q8H-IV [facility] Last Admin: 04/05/16 17:39 Dose: 40 mg - Objective Vital Signs: Vital Signs Temperature 97.9 F 04/05/16 16:05 Pulse Rate 112 H 04/05/16 16:05 Respiratory Rate 20 04/05/16 16:05 Blood Pressure 88/50 04/05/16 16:05 O2 Sat by Pulse Oximetry (%) 93 L 04/05/16 12:00 Respiratory: Yes: Other (decreased bs b/l) Gastrointestinal: Yes: WNL, Normal Bowel Sounds, Soft Labs: CBC, BMP 04/02/16 05:20 04/02/16 08:30 Problem List - Problems (1) Pneumonia Code(s): J18.9 - PNEUMONIA, UNSPECIFIED ORGANISM (2) COPD (chronic obstructive pulmonary disease) Code(s): J44.9 - CHRONIC OBSTRUCTIVE PULMONARY DISEASE, UNSPECIFIED (3) Acute hypoxemic respiratory failure Code(s): J96.01 - ACUTE RESPIRATORY FAILURE WITH HYPOXIA (4) HIV (human immunodeficiency virus infection) Code(s): Z21 - ASYMPTOMATIC HUMAN IMMUNODEFICIENCY VIRUS INFECTION STATUS
[2016-04-06] MEDS: PIPERACILLIN/TAZOB 3.375 GM 50 ML IVPB SCH ×4 (02:12→20:23)
[2016-04-06] MEDS: methylPREDNISolone NA SUCC 40 MG/1 ML VIAL IVPB SCH ×3 (02:12→17:27)
[2016-04-06] MEDS ORDERED: PT OWN MED DRAWER 7, Y5N ONE ×2 (04:24→08:31)
[2016-04-06] MEDS: ALBUTEROL SO4 2.5/IPRATROPIUM 0.5 INH SOL 3 ML VIAL.NEB. NEB SCH ×4 (06:14→17:15)
[2016-04-06] MEDS: HEPARIN NA (PORCINE) 5,000 UNITS/ML 1ML VIAL SQ SCH ×2 (09:01→21:04)
[2016-04-06] MEDS: EMTRICITAB/RILPIVIRINE/TENOFOV 1 EACH TABLET PO SCH (10:59)
--- NOTE | 2016-04-06 12:27 | PN ---
Progress Note, Physician History of Present Illness: pulmonary alert,feeling better,less dyspneic,-cp,less cough - Current Medication List Current Medications: Active Medications Albuterol Sulfate (Ventolin 0.083% Nebulizer Soln -) 1 amp NEB Q4H PRN PRN Reason: SHORT OF BREATH/WHEEZING Albuterol/Ipratropium (Duoneb -) 1 amp NEB QIDR [facility] Last Admin: 04/06/16 11:08 Dose: Not Given Emtricitabine/Rilpivirine/Tenofovir (Complera -) 1 each PO DAILY@0800 [facility] Last Admin: 04/06/16 10:59 Dose: 1 each Heparin Sodium (Porcine) (Heparin -) 5,000 unit SQ BID [facility] Last Admin: 04/06/16 09:01 Dose: 5,000 unit Piperacillin Sod/Tazobactam Sod (Zosyn 3.375gm Ivpb (Pre-Docked)) 50 mls @ 100 mls/hr IVPB Q6H-IV [facility] Last Admin: 04/06/16 09:01 Dose: 100 mls/hr Sodium Chloride (Normal Saline -) 1,000 mls @ 42 mls/hr IV ASDIR [facility] Last Admin: 04/05/16 18:23 Dose: Not Given Methylprednisolone Sodium Succinate (Solu-Medrol -) 40 mg IVPB Q8H-IV [facility] Last Admin: 04/06/16 09:01 Dose: 40 mg - Objective Vital Signs: Vital Signs Temperature 97.2 F L 04/06/16 10:00 Pulse Rate 104 H 04/06/16 10:25 Respiratory Rate 20 04/06/16 10:00 Blood Pressure 100/73 04/06/16 10:00 O2 Sat by Pulse Oximetry (%) 96 04/06/16 10:25 Constitutional: Yes: Calm, Thin Eyes: Yes: WNL, Occular Prosthesis HENT: Yes: Tonsillar Exudate Cardiovascular: Yes: Regular Rate and Rhythm, S1, S2 Respiratory: Yes: Dullness, Rales (few crackles on r) Gastrointestinal: Yes: Normal Bowel Sounds, Soft Extremities: Yes: WNL Edema: No Labs: CBC, BMP Problem List - Problems (1) Acute hypoxemic respiratory failure Code(s): J96.01 - ACUTE RESPIRATORY FAILURE WITH HYPOXIA (2) Acute respiratory distress Code(s): J80 - ACUTE RESPIRATORY DISTRESS SYNDROME (3) HIV (human immunodeficiency virus infection) Code(s): Z21 - ASYMPTOMATIC HUMAN IMMUNODEFICIENCY VIRUS INFECTION STATUS (4) Pneumonia Code(s): J18.9 - PNEUMONIA, UNSPECIFIED ORGANISM (5) Lung cancer Code(s): C34.90 - MALIGNANT NEOPLASM OF UNSP PART OF UNSP BRONCHUS OR LUNG (6) Abnormal LFTs Code(s): R79.89 - OTHER SPECIFIED ABNORMAL FINDINGS OF BLOOD CHEMISTRY (7) COPD (chronic obstructive pulmonary disease) Code(s): J44.9 - CHRONIC OBSTRUCTIVE PULMONARY DISEASE, UNSPECIFIED (8) Lung cancer, hilus Code(s): C34.00 - MALIGNANT NEOPLASM OF UNSPECIFIED MAIN BRONCHUS (9) Lung mass Code(s): R91.8 - OTHER NONSPECIFIC ABNORMAL FINDING OF LUNG FIELD Assessment/Plan ASSESSMENT AND PLAN: Acute on Chronic Hypoxic Respiratory Failure improved 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
[2016-04-06] MEDS: SODIUM CHLORIDE 1,000 ML IV SCH (14:22)
--- NOTE | 2016-04-06 15:30 | PN ---
Progress Note, Physician History of Present Illness: No c/o chest pain/ dyspnea/ cough No fever/ chills - Current Medication List Current Medications: Active Medications Albuterol Sulfate (Ventolin 0.083% Nebulizer Soln -) 1 amp NEB Q4H PRN PRN Reason: SHORT OF BREATH/WHEEZING Albuterol/Ipratropium (Duoneb -) 1 amp NEB QIDR [facility] Last Admin: 04/06/16 11:08 Dose: Not Given Emtricitabine/Rilpivirine/Tenofovir (Complera -) 1 each PO DAILY@0800 [facility] Last Admin: 04/06/16 10:59 Dose: 1 each Heparin Sodium (Porcine) (Heparin -) 5,000 unit SQ BID [facility] Last Admin: 04/06/16 09:01 Dose: 5,000 unit Piperacillin Sod/Tazobactam Sod (Zosyn 3.375gm Ivpb (Pre-Docked)) 50 mls @ 100 mls/hr IVPB Q6H-IV [facility] Last Admin: 04/06/16 14:21 Dose: 100 mls/hr Sodium Chloride (Normal Saline -) 1,000 mls @ 42 mls/hr IV ASDIR [facility] Last Admin: 04/06/16 14:22 Dose: 42 mls/hr Methylprednisolone Sodium Succinate (Solu-Medrol -) 40 mg IVPB Q8H-IV [facility] Last Admin: 04/06/16 09:01 Dose: 40 mg - Objective Vital Signs: Vital Signs Temperature 98.1 F 04/06/16 14:00 Pulse Rate 108 H 04/06/16 14:00 Respiratory Rate 20 04/06/16 14:00 Blood Pressure 100/51 04/06/16 14:00 O2 Sat by Pulse Oximetry (%) 96 04/06/16 10:25 Constitutional: Yes: No Distress, Cachectic Cardiovascular: Yes: Regular Rate and Rhythm, S1, S2 Respiratory: Yes: CTA Bilaterally, Diminished Gastrointestinal: Yes: Normal Bowel Sounds, Soft. No: Tenderness Edema: No Labs: CBC, BMP 04/02/16 05:20 04/02/16 08:30 Assessment/Plan Postobstructive pneumonitis Lung ca HIV+ stable Continue empiric zosyn ART
--- NOTE | 2016-04-06 15:32 | PN ---
Progress Note (short form) - Note Progress Note: Patient seen and examined Denies any complaints Last Vital Signs Temp Pulse Resp BP Pulse Ox 98.1 F 108 H 20 100/51 96 04/06/16 14:00 04/06/16 14:00 04/06/16 14:00 04/06/16 14:00 04/06/16 10:25 HEENT: ALESIA, EOM Intact Cor: RSR, No murmurs, No gallops Lungs: decreased at bases Abd: Soft, Normal bowel sounds, No organomegaly Ext:No significant edema Current Medications Albuterol Sulfate (Ventolin 0.083% Nebulizer Soln -) 1 amp NEB Q4H PRN PRN Reason: SHORT OF BREATH/WHEEZING Albuterol/Ipratropium (Duoneb -) 1 amp NEB QIDR [facility] Last Admin: 04/06/16 11:08 Dose: Not Given Emtricitabine/Rilpivirine/Tenofovir (Complera -) 1 each PO DAILY@0800 [facility] Last Admin: 04/06/16 10:59 Dose: 1 each Heparin Sodium (Porcine) (Heparin -) 5,000 unit SQ BID [facility] Last Admin: 04/06/16 09:01 Dose: 5,000 unit Piperacillin Sod/Tazobactam Sod (Zosyn 3.375gm Ivpb (Pre-Docked)) 50 mls @ 100 mls/hr IVPB Q6H-IV [facility] Last Admin: 04/06/16 14:21 Dose: 100 mls/hr Sodium Chloride (Normal Saline -) 1,000 mls @ 42 mls/hr IV ASDIR [facility] Last Admin: 04/06/16 14:22 Dose: 42 mls/hr Methylprednisolone Sodium Succinate (Solu-Medrol -) 40 mg IVPB Q8H-IV [facility] Last Admin: 04/06/16 09:01 Dose: 40 mg Labs reviewed A/P 70 y/o patient with HIV, severe COPD, recently diagnosed squamous cell lung cancer, now with shortness of breath. CT chest Rt. lung collapse, mediastinal shift, post obstructive pneumonia ICU team and mysef discussed with paient and family overall situation on 04/01/16 about impending resp. failure due to underlying malignancy. aggressiveness of the tumor especially given his immunocompromised status. Poor performance status and overallpoor prognosis. discussed that they need to address advance directives. Overall seems clinically improved on Antibiotics supportive care
--- NOTE | 2016-04-06 16:23 | PN ---
Progress Note (short form) - Note Progress Note: Radiation Oncology Transferred out of ICU. Feeling better w less SOB. Seems clinically improving. Discussed palliative RT to JOHNNY bronchus to alleviate obstruction. Pt and wish to begin this week. If stable, will plan to bring to office for simulation CT. Pt requests Wed. RT to begin the next day. Would ask pulmonary to clear for transport to RT.
--- NOTE | 2016-04-06 19:59 | PN ---
Progress Note, Physician History of Present Illness: stable - Current Medication List Current Medications: Active Medications Albuterol Sulfate (Ventolin 0.083% Nebulizer Soln -) 1 amp NEB Q4H PRN PRN Reason: SHORT OF BREATH/WHEEZING Albuterol/Ipratropium (Duoneb -) 1 amp NEB QIDR [facility] Last Admin: 04/06/16 17:15 Dose: Not Given Emtricitabine/Rilpivirine/Tenofovir (Complera -) 1 each PO DAILY@0800 [facility] Last Admin: 04/06/16 10:59 Dose: 1 each Heparin Sodium (Porcine) (Heparin -) 5,000 unit SQ BID [facility] Last Admin: 04/06/16 09:01 Dose: 5,000 unit Piperacillin Sod/Tazobactam Sod (Zosyn 3.375gm Ivpb (Pre-Docked)) 50 mls @ 100 mls/hr IVPB Q6H-IV [facility] Last Admin: 04/06/16 14:21 Dose: 100 mls/hr Sodium Chloride (Normal Saline -) 1,000 mls @ 42 mls/hr IV ASDIR [facility] Last Admin: 04/06/16 14:22 Dose: 42 mls/hr Methylprednisolone Sodium Succinate (Solu-Medrol -) 40 mg IVPB Q8H-IV [facility] Last Admin: 04/06/16 17:27 Dose: 40 mg - Objective Vital Signs: Vital Signs Temperature 98.1 F 04/06/16 14:00 Pulse Rate 108 H 04/06/16 14:00 Respiratory Rate 20 04/06/16 14:00 Blood Pressure 100/51 04/06/16 14:00 O2 Sat by Pulse Oximetry (%) 96 04/06/16 10:25 Constitutional: Yes: No Distress HENT: Yes: Atraumatic Neck: Yes: Supple Cardiovascular: Yes: Regular Rate and Rhythm Respiratory: Yes: CTA Bilaterally Gastrointestinal: Yes: Normal Bowel Sounds Extremities: Yes: WNL Labs: CBC, BMP 04/02/16 05:20 04/02/16 08:30 Problem List - Problems (1) Lung cancer Code(s): C34.90 - MALIGNANT NEOPLASM OF UNSP PART OF UNSP BRONCHUS OR LUNG (2) Acute hypoxemic respiratory failure Code(s): J96.01 - ACUTE RESPIRATORY FAILURE WITH HYPOXIA (3) HIV (human immunodeficiency virus infection) Code(s): Z21 - ASYMPTOMATIC HUMAN IMMUNODEFICIENCY VIRUS INFECTION STATUS (4) Pneumonia Code(s): J18.9 - PNEUMONIA, UNSPECIFIED ORGANISM (5) COPD (chronic obstructive pulmonary disease) Code(s): J44.9 - CHRONIC OBSTRUCTIVE PULMONARY DISEASE, UNSPECIFIED (6) Protein calorie malnutrition Assessment/Plan: will follow dieticians recommendation Code(s): E46 - UNSPECIFIED PROTEIN-CALORIE MALNUTRITION Assessment/Plan 1.acute respiratory failure/pna pt on nc on ivabx iv steroids st 2.hiv stable on meds dr wiley on cosult 3.copd duo nebs 4.htn stable on meds 5.hld 6.lung ca for RT
[2016-04-07] MEDS: methylPREDNISolone NA SUCC 40 MG/1 ML VIAL IVPB SCH ×3 (01:00→17:05)
[2016-04-07] MEDS: PIPERACILLIN/TAZOB 3.375 GM 50 ML IVPB SCH ×2 (02:44→08:28)
[2016-04-07] MEDS: ALBUTEROL SO4 2.5/IPRATROPIUM 0.5 INH SOL 3 ML VIAL.NEB. NEB SCH ×5 (06:51→22:59)
[2016-04-07] MEDS ORDERED: PT OWN MED DRAWER 7, Y5N ONE (08:20)
[2016-04-07] MEDS: HEPARIN NA (PORCINE) 5,000 UNITS/ML 1ML VIAL SQ SCH ×2 (09:02→21:19)
[2016-04-07] MEDS: EMTRICITAB/RILPIVIRINE/TENOFOV 1 EACH TABLET PO SCH (09:45)
--- NOTE | 2016-04-07 11:30 | PN ---
Progress Note (short form) - Note Progress Note: Radiation Oncology Pt changed mind and agreed to come to RT dept today. Tolerated planning CT simulation without SOB. If stable, will plan to begin focused palliative RT to JOHNNY bronchus for 5 treatments beginning tomorrow. Cont supportive care, respiratory treatments, pulmonary follow up.
--- NOTE | 2016-04-07 13:02 | PN ---
Progress Note, Physician History of Present Illness: No complaints No c/o chest pain/ dyspnea/ cough Denies sputum production No fever/ chills Receiving palliative RT - Current Medication List Current Medications: Active Medications Albuterol Sulfate (Ventolin 0.083% Nebulizer Soln -) 1 amp NEB Q4H PRN PRN Reason: SHORT OF BREATH/WHEEZING Albuterol/Ipratropium (Duoneb -) 1 amp NEB QIDR [facility] Last Admin: 04/07/16 12:56 Dose: 1 amp Emtricitabine/Rilpivirine/Tenofovir (Complera -) 1 each PO DAILY@0800 [facility] Last Admin: 04/07/16 09:45 Dose: 1 each Heparin Sodium (Porcine) (Heparin -) 5,000 unit SQ BID [facility] Last Admin: 04/07/16 09:02 Dose: 5,000 unit Piperacillin Sod/Tazobactam Sod (Zosyn 3.375gm Ivpb (Pre-Docked)) 50 mls @ 100 mls/hr IVPB Q6H-IV [facility] Last Admin: 04/07/16 08:28 Dose: 100 mls/hr Sodium Chloride (Normal Saline -) 1,000 mls @ 42 mls/hr IV ASDIR [facility] Last Admin: 04/06/16 14:22 Dose: 42 mls/hr Methylprednisolone Sodium Succinate (Solu-Medrol -) 40 mg IVPB Q8H-IV [facility] Last Admin: 04/07/16 09:02 Dose: 40 mg - Objective Vital Signs: Vital Signs Temperature 97.6 F 04/07/16 06:00 Pulse Rate 120 H 04/07/16 09:32 Respiratory Rate 20 04/07/16 06:00 Blood Pressure 120/74 04/07/16 06:00 O2 Sat by Pulse Oximetry (%) 92 L 04/07/16 09:32 Constitutional: Yes: No Distress, Cachectic Eyes: Yes: Conjunctiva Clear Cardiovascular: Yes: Regular Rate and Rhythm, S1, S2 Respiratory: Yes: Diminished Gastrointestinal: Yes: Normal Bowel Sounds, Soft. No: Tenderness Edema: No Labs: CBC, BMP 04/02/16 05:20 04/02/16 08:30 Assessment/Plan Postobstructive pneumonitis Lung ca HIV+ stable Day #7 empiric zosyn Switch to po Augmentin x 3d ART
--- NOTE | 2016-04-07 14:12 | PN ---
Progress Note (short form) - Note Progress Note: PULMONARY States breathing has improved. Minimal cough. No fevers or chills. Last Vital Signs Temp Pulse Resp BP Pulse Ox 97.8 F 113 H 20 111/70 92 L 04/07/16 10:00 04/07/16 10:00 04/07/16 10:00 04/07/16 10:00 04/07/16 09:32 Gen: NAD at rest Heart: tachycardic, regular Lung: decreased breath sounds right Abd: soft, nontender Ext: no edema CBC, BMP 04/02/16 05:20 04/02/16 08:30 Active Medications Albuterol Sulfate (Ventolin 0.083% Nebulizer Soln -) 1 amp NEB Q4H PRN PRN Reason: SHORT OF BREATH/WHEEZING Albuterol/Ipratropium (Duoneb -) 1 amp NEB QIDR [facility] Last Admin: 04/07/16 12:56 Dose: 1 amp Amoxicillin/Clavulanate Potassium (Augmentin - 875mg Tablet) 1 tab PO BID@0800, 1730 [facility] Emtricitabine/Rilpivirine/Tenofovir (Complera -) 1 each PO DAILY@0800 [facility] Last Admin: 04/07/16 09:45 Dose: 1 each Heparin Sodium (Porcine) (Heparin -) 5,000 unit SQ BID [facility] Last Admin: 04/07/16 09:02 Dose: 5,000 unit Sodium Chloride (Normal Saline -) 1,000 mls @ 42 mls/hr IV ASDIR [facility] Last Admin: 04/06/16 14:22 Dose: 42 mls/hr Methylprednisolone Sodium Succinate (Solu-Medrol -) 40 mg IVPB Q8H-IV [facility] Last Admin: 04/07/16 09:02 Dose: 40 mg A/P Acute on Chronic Hypoxic Respiratory Failure improving 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
[2016-04-07] MEDS: AMOX TR/POT CLAV 875MG/125MG TABLETS (FP) PO SCH (17:06)
--- NOTE | 2016-04-07 18:12 | PN ---
Progress Note, Physician History of Present Illness: stable - Current Medication List Current Medications: Active Medications Albuterol Sulfate (Ventolin 0.083% Nebulizer Soln -) 1 amp NEB Q4H PRN PRN Reason: SHORT OF BREATH/WHEEZING Albuterol/Ipratropium (Duoneb -) 1 amp NEB QIDR [facility] Last Admin: 04/07/16 17:35 Dose: Not Given Amoxicillin/Clavulanate Potassium (Augmentin - 875mg Tablet) 1 tab PO BID@0800, 1730 [facility] Last Admin: 04/07/16 17:06 Dose: 1 tab Emtricitabine/Rilpivirine/Tenofovir (Complera -) 1 each PO DAILY@0800 [facility] Last Admin: 04/07/16 09:45 Dose: 1 each Heparin Sodium (Porcine) (Heparin -) 5,000 unit SQ BID [facility] Last Admin: 04/07/16 09:02 Dose: 5,000 unit Sodium Chloride (Normal Saline -) 1,000 mls @ 42 mls/hr IV ASDIR [facility] Last Admin: 04/06/16 14:22 Dose: 42 mls/hr Methylprednisolone Sodium Succinate (Solu-Medrol -) 40 mg IVPB Q8H-IV [facility] Last Admin: 04/07/16 17:05 Dose: 40 mg - Objective Vital Signs: Vital Signs Temperature 98.4 F 04/07/16 14:00 Pulse Rate 110 H 04/07/16 14:00 Respiratory Rate 20 04/07/16 14:00 Blood Pressure 109/60 04/07/16 14:00 O2 Sat by Pulse Oximetry (%) 92 L 04/07/16 09:32 Constitutional: Yes: No Distress HENT: Yes: Atraumatic Neck: Yes: Supple Cardiovascular: Yes: Regular Rate and Rhythm Respiratory: Yes: Rhonchi Gastrointestinal: Yes: Normal Bowel Sounds Extremities: Yes: WNL Neurological: Yes: Alert, Oriented Labs: CBC, BMP 04/02/16 05:20 04/02/16 08:30 Problem List - Problems (1) Lung cancer Code(s): C34.90 - MALIGNANT NEOPLASM OF UNSP PART OF UNSP BRONCHUS OR LUNG (2) Acute hypoxemic respiratory failure Code(s): J96.01 - ACUTE RESPIRATORY FAILURE WITH HYPOXIA (3) HIV (human immunodeficiency virus infection) Code(s): Z21 - ASYMPTOMATIC HUMAN IMMUNODEFICIENCY VIRUS INFECTION STATUS (4) Pneumonia Code(s): J18.9 - PNEUMONIA, UNSPECIFIED ORGANISM (5) COPD (chronic obstructive pulmonary disease) Code(s): J44.9 - CHRONIC OBSTRUCTIVE PULMONARY DISEASE, UNSPECIFIED (6) Protein calorie malnutrition Code(s): E46 - UNSPECIFIED PROTEIN-CALORIE MALNUTRITION Assessment/Plan 1.acute respiratory failure/pna pt on nc on ivabx iv steroids st 2.hiv stable on meds dr wiley on cosult 3.copd duo nebs 4.htn stable on meds 5.hld 6.lung ca for RT..palliative
--- NOTE | 2016-04-07 18:24 | PN ---
Progress Note (short form) - Note Progress Note: Patient seen and examined Denies significant complaints of chest pains, SOB, or dyspnea Last Vital Signs Temp Pulse Resp BP Pulse Ox 98.4 F 110 H 20 109/60 92 L 04/07/16 14:00 04/07/16 14:00 04/07/16 14:00 04/07/16 14:00 04/07/16 09:32 HEENT: ALESIA, EOM Intact Oropharynx: No thrush, No mucositis,poor dentition, 2 front teeth Cor: RSR, No murmurs, No gallops Lungs: diminished breath sounds bilaterally Abd: Soft, Normal bowel sounds, No organomegaly Ext:No significant edema Skin: No rashes, Integument intact CBC, BMP 04/02/16 05:20 04/02/16 08:30 Current Medications Generic Name Dose Route Start Last Admin Trade Name Freq PRN Reason Stop Dose Admin Albuterol Sulfate 1 amp 04/03/16 21:55 Ventolin 0.083% Nebulizer Soln - NEB Q4H PRN SHORT OF BREATH/WHEEZING Albuterol/Ipratropium 1 amp 04/04/16 00:00 04/07/16 17:35 Duoneb - NEB Not Given QIDR JESSA Amoxicillin/Clavulanate Potassium 1 tab 04/07/16 17:30 04/07/16 17:06 Augmentin - 875mg Tablet PO 1 tab BID@0800,1730 JESSA Administration Emtricitabine/Rilpivirine/Tenofovir 1 each 04/02/16 10:00 04/07/16 09:45 Complera - PO 1 each DAILY@0800 JESSA Administration Heparin Sodium (Porcine) 5,000 unit 04/01/16 22:00 04/07/16 09:02 Heparin - SQ 5,000 unit BID JESSA Administration Sodium Chloride 1,000 mls @ 42 mls/hr 04/02/16 13:45 04/06/16 14:22 Normal Saline - IV 42 mls/hr ASDIR JESSA Administration Methylprednisolone Sodium Succinate 40 mg 04/05/16 18:00 04/07/16 17:05 Solu-Medrol - IVPB 40 mg Q8H-IV JESSA Administration Impression: Acute Respiratory Failure-improved SCC of lung Post obstructive pneumonia Malnutrition/cachexia of malignancy HIV COPD Plan: Begun on small field of RT to "open up" lung and relieve post obstructive pneumonia Continue nutritional supplementation RT Problem List - Problems (1) Lung cancer, hilus Code(s): C34.00 - MALIGNANT NEOPLASM OF UNSPECIFIED MAIN BRONCHUS (2) RLL pneumonia Code(s): J18.9 - PNEUMONIA, UNSPECIFIED ORGANISM (3) Acute hypoxemic respiratory failure Code(s): J96.01 - ACUTE RESPIRATORY FAILURE WITH HYPOXIA (4) COPD (chronic obstructive pulmonary disease) Code(s): J44.9 - CHRONIC OBSTRUCTIVE PULMONARY DISEASE, UNSPECIFIED (5) HIV disease Code(s): B20 - HUMAN IMMUNODEFICIENCY VIRUS [HIV] DISEASE
[2016-04-07] MEDS ORDERED: INFLUENZA VACCINE 45 MCG/0.5 ML (MDV 16-17) IM ONE (19:19)
[2016-04-07] MEDS: SODIUM CHLORIDE 1,000 ML IV SCH (20:27)
--- NOTE | 2016-04-07 22:54 | PN ---
Progress Note, Physician History of Present Illness: Pt was seen and examined on 04/03/16 however note was lost - Current Medication List Current Medications: Active Medications Albuterol Sulfate (Ventolin 0.083% Nebulizer Soln -) 1 amp NEB Q4H PRN PRN Reason: SHORT OF BREATH/WHEEZING Albuterol/Ipratropium (Duoneb -) 1 amp NEB QIDR [facility] Last Admin: 04/07/16 17:35 Dose: Not Given Amoxicillin/Clavulanate Potassium (Augmentin - 875mg Tablet) 1 tab PO BID@0800, 1730 [facility] Last Admin: 04/07/16 17:06 Dose: 1 tab Emtricitabine/Rilpivirine/Tenofovir (Complera -) 1 each PO DAILY@0800 [facility] Last Admin: 04/07/16 09:45 Dose: 1 each Heparin Sodium (Porcine) (Heparin -) 5,000 unit SQ BID [facility] Last Admin: 04/07/16 21:19 Dose: 5,000 unit Sodium Chloride (Normal Saline -) 1,000 mls @ 42 mls/hr IV ASDIR [facility] Last Admin: 04/07/16 20:27 Dose: 42 mls/hr Methylprednisolone Sodium Succinate (Solu-Medrol -) 40 mg IVPB Q8H-IV [facility] Last Admin: 04/07/16 17:05 Dose: 40 mg - Objective Vital Signs: Vital Signs Temperature 98.1 F 04/07/16 22:00 Pulse Rate 108 H 04/07/16 22:00 Respiratory Rate 20 04/07/16 22:00 Blood Pressure 117/78 04/07/16 22:00 O2 Sat by Pulse Oximetry (%) 97 04/07/16 21:00 Constitutional: Yes: No Distress Neck: Yes: Supple Cardiovascular: Yes: WNL, Regular Rate and Rhythm Respiratory: Yes: Other (Decreased bs b/l) Gastrointestinal: Yes: WNL, Normal Bowel Sounds, Soft Labs: CBC, BMP 04/02/16 05:20 04/02/16 08:30 Problem List - Problems (1) Pneumonia Code(s): J18.9 - PNEUMONIA, UNSPECIFIED ORGANISM (2) COPD (chronic obstructive pulmonary disease) Code(s): J44.9 - CHRONIC OBSTRUCTIVE PULMONARY DISEASE, UNSPECIFIED (3) Acute hypoxemic respiratory failure Code(s): J96.01 - ACUTE RESPIRATORY FAILURE WITH HYPOXIA (4) HIV (human immunodeficiency virus infection) Code(s): Z21 - ASYMPTOMATIC HUMAN IMMUNODEFICIENCY VIRUS INFECTION STATUS
[2016-04-08] MEDS: methylPREDNISolone NA SUCC 40 MG/1 ML VIAL IVPB SCH ×3 (01:07→17:39)
[2016-04-08] MEDS: ALBUTEROL SO4 2.5/IPRATROPIUM 0.5 INH SOL 3 ML VIAL.NEB. NEB SCH ×3 (06:51→17:15)
[2016-04-08] MEDS ORDERED: PT OWN MED DRAWER 7, Y5N ONE (09:08)
[2016-04-08] MEDS: HEPARIN NA (PORCINE) 5,000 UNITS/ML 1ML VIAL SQ SCH ×2 (09:14→21:12)
[2016-04-08] MEDS: EMTRICITAB/RILPIVIRINE/TENOFOV 1 EACH TABLET PO SCH (09:14)
[2016-04-08] MEDS: AMOX TR/POT CLAV 875MG/125MG TABLETS (FP) PO SCH ×2 (09:14→17:39)
--- NOTE | 2016-04-08 10:24 | PN ---
Progress Note (short form) - Note Progress Note: PULMONARY LYING IN BED OFFERS NO COMPLAINTS VSS/AFEBRILE CHART REVIEWED TEMPORAL WASTING DIMINISHED BREATH SOUNDS RIGHT LUNG FIELD S1S2 BS+ NO EDEMA LABS/IMAGING/MEDS/NOTES REVIEWED Acute on Chronic Hypoxic Respiratory Failure improving 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 - palliative RT to right main stem Messi IRIZARRY MD
[2016-04-08] MEDS: SODIUM CHLORIDE 1,000 ML IV SCH (17:38)
--- NOTE | 2016-04-08 19:28 | PN ---
Progress Note, Physician History of Present Illness: stable - Current Medication List Current Medications: Active Medications Albuterol Sulfate (Ventolin 0.083% Nebulizer Soln -) 1 amp NEB Q4H PRN PRN Reason: SHORT OF BREATH/WHEEZING Albuterol/Ipratropium (Duoneb -) 1 amp NEB QIDR [facility] Last Admin: 04/08/16 11:29 Dose: 1 amp Amoxicillin/Clavulanate Potassium (Augmentin - 875mg Tablet) 1 tab PO BID@0800, 1730 [facility] Last Admin: 04/08/16 17:39 Dose: 1 tab Emtricitabine/Rilpivirine/Tenofovir (Complera -) 1 each PO DAILY@0800 [facility] Last Admin: 04/08/16 09:14 Dose: 1 each Heparin Sodium (Porcine) (Heparin -) 5,000 unit SQ BID [facility] Last Admin: 04/08/16 09:14 Dose: 5,000 unit Sodium Chloride (Normal Saline -) 1,000 mls @ 42 mls/hr IV ASDIR [facility] Last Admin: 04/08/16 17:38 Dose: Not Given Methylprednisolone Sodium Succinate (Solu-Medrol -) 40 mg IVPB Q8H-IV [facility] Last Admin: 04/08/16 17:39 Dose: 40 mg - Objective Vital Signs: Vital Signs Temperature 97.4 F L 04/08/16 18:00 Pulse Rate 109 H 04/08/16 18:00 Respiratory Rate 18 04/08/16 18:00 Blood Pressure 117/75 04/08/16 18:00 O2 Sat by Pulse Oximetry (%) 90 L 04/08/16 11:28 Constitutional: Yes: Calm HENT: Yes: Atraumatic Neck: Yes: Supple Cardiovascular: Yes: Regular Rate and Rhythm Respiratory: Yes: CTA Bilaterally, Other (diminished breath sounds R lung) Gastrointestinal: Yes: Normal Bowel Sounds Extremities: Yes: WNL Neurological: Yes: Alert, Oriented Labs: CBC, BMP 04/02/16 05:20 04/02/16 08:30 Problem List - Problems (1) Lung cancer Code(s): C34.90 - MALIGNANT NEOPLASM OF UNSP PART OF UNSP BRONCHUS OR LUNG (2) Acute hypoxemic respiratory failure Code(s): J96.01 - ACUTE RESPIRATORY FAILURE WITH HYPOXIA (3) HIV (human immunodeficiency virus infection) Code(s): Z21 - ASYMPTOMATIC HUMAN IMMUNODEFICIENCY VIRUS INFECTION STATUS (4) Pneumonia Code(s): J18.9 - PNEUMONIA, UNSPECIFIED ORGANISM (5) COPD (chronic obstructive pulmonary disease) Code(s): J44.9 - CHRONIC OBSTRUCTIVE PULMONARY DISEASE, UNSPECIFIED (6) Protein calorie malnutrition Code(s): E46 - UNSPECIFIED PROTEIN-CALORIE MALNUTRITION Assessment/Plan 1.acute respiratory failure/pna pt on nc on ivabx iv steroids st 2.hiv stable on meds dr wiley on cosult 3.copd duo nebs 4.htn stable on meds 5.hld 6.lung ca for RT..palliative tp R lung
[2016-04-09] MEDS: ALBUTEROL SO4 2.5/IPRATROPIUM 0.5 INH SOL 3 ML VIAL.NEB. NEB SCH ×5 (00:16→23:08)
[2016-04-09] MEDS: methylPREDNISolone NA SUCC 40 MG/1 ML VIAL IVPB SCH ×3 (01:15→18:00)
--- NOTE | 2016-04-09 08:28 | PN ---
Progress Note (short form) - Note Progress Note: Radiation Oncology Tolerated 1st RT to JOHNNY bronchus yesterday. Will cont with 2nd tx today, if stable. Cont supportive care.
[2016-04-09] MEDS ORDERED: PT OWN MED DRAWER 7, Y5N ONE (09:23)
[2016-04-09] MEDS: AMOX TR/POT CLAV 875MG/125MG TABLETS (FP) PO SCH ×2 (09:25→18:00)
[2016-04-09] MEDS: EMTRICITAB/RILPIVIRINE/TENOFOV 1 EACH TABLET PO SCH (09:25)
--- NOTE | 2016-04-09 13:33 | PN ---
Progress Note (short form) - Note Progress Note: PULMONARY Had RT yesterday, tolerated well. States breathing has improved. Minimal cough. No fevers or chills. Last Vital Signs Temp Pulse Resp BP Pulse Ox 98.1 F 98 H 20 120/79 92 L 04/09/16 08:45 04/09/16 11:11 04/09/16 08:45 04/09/16 08:45 04/09/16 11:11 Gen: NAD at rest Heart: tachycardic, regular Lung: decreased breath sounds right Abd: soft, nontender Ext: no edema CBC, BMP 04/02/16 05:20 04/02/16 08:30 Active Medications Albuterol/Ipratropium (Duoneb -) 1 amp NEB QIDR [facility] Last Admin: 04/09/16 11:12 Dose: 1 amp Amoxicillin/Clavulanate Potassium (Augmentin - 875mg Tablet) 1 tab PO BID@0800, 1730 [facility] Last Admin: 04/09/16 09:25 Dose: 1 tab Emtricitabine/Rilpivirine/Tenofovir (Complera -) 1 each PO DAILY@0800 [facility] Last Admin: 04/09/16 09:25 Dose: 1 each Sodium Chloride (Normal Saline -) 1,000 mls @ 42 mls/hr IV ASDIR [facility] Last Admin: 04/09/16 00:00 Dose: 42 mls/hr Methylprednisolone Sodium Succinate (Solu-Medrol -) 40 mg IVPB Q8H-IV [facility] Last Admin: 04/09/16 09:25 Dose: 40 mg A/P Acute on Chronic Hypoxic Respiratory Failure improving Right Mainstem Bronchus obstruction from Squamous Cell Ca Post obstructive Pneumonia Sepsis Lactic Acidosis resolved Atelectasis HIV COPD HTN - antibiotics per ID - can change steroids to PO - inhaled bronchodilators - IVF - continue discussions regarding goals of care, advanced directives - poor overall prognosis
[2016-04-09] MEDS: SODIUM CHLORIDE 1,000 ML IV SCH ×3 (17:39→23:46)
--- NOTE | 2016-04-09 19:29 | PN ---
Progress Note, Physician History of Present Illness: stable - Current Medication List Current Medications: Active Medications Albuterol/Ipratropium (Duoneb -) 1 amp NEB QIDR [facility] Last Admin: 04/09/16 19:07 Dose: 1 amp Amoxicillin/Clavulanate Potassium (Augmentin - 875mg Tablet) 1 tab PO BID@0800, 1730 [facility] Last Admin: 04/09/16 18:00 Dose: 1 tab Emtricitabine/Rilpivirine/Tenofovir (Complera -) 1 each PO DAILY@0800 [facility] Last Admin: 04/09/16 09:25 Dose: 1 each Sodium Chloride (Normal Saline -) 1,000 mls @ 42 mls/hr IV ASDIR [facility] Last Admin: 04/09/16 17:39 Dose: Not Given Methylprednisolone Sodium Succinate (Solu-Medrol -) 40 mg IVPB Q8H-IV [facility] Last Admin: 04/09/16 18:00 Dose: 40 mg - Objective Vital Signs: Vital Signs Temperature 98.1 F 04/09/16 08:45 Pulse Rate 98 H 04/09/16 11:11 Respiratory Rate 20 04/09/16 08:45 Blood Pressure 120/79 04/09/16 08:45 O2 Sat by Pulse Oximetry (%) 92 L 04/09/16 11:11 Constitutional: Yes: No Distress HENT: Yes: Atraumatic Neck: Yes: Supple Cardiovascular: Yes: Regular Rate and Rhythm Respiratory: Yes: CTA Bilaterally Gastrointestinal: Yes: Normal Bowel Sounds Extremities: Yes: WNL Neurological: Yes: Alert, Oriented Labs: CBC, BMP 04/02/16 05:20 04/02/16 08:30 Problem List - Problems (1) Lung cancer Code(s): C34.90 - MALIGNANT NEOPLASM OF UNSP PART OF UNSP BRONCHUS OR LUNG (2) Acute hypoxemic respiratory failure Code(s): J96.01 - ACUTE RESPIRATORY FAILURE WITH HYPOXIA (3) HIV (human immunodeficiency virus infection) Code(s): Z21 - ASYMPTOMATIC HUMAN IMMUNODEFICIENCY VIRUS INFECTION STATUS (4) Pneumonia Code(s): J18.9 - PNEUMONIA, UNSPECIFIED ORGANISM (5) COPD (chronic obstructive pulmonary disease) Code(s): J44.9 - CHRONIC OBSTRUCTIVE PULMONARY DISEASE, UNSPECIFIED (6) Protein calorie malnutrition Code(s): E46 - UNSPECIFIED PROTEIN-CALORIE MALNUTRITION Assessment/Plan 1.acute respiratory failure/pna..post obstructive pt on nc on ivabx iv steroids st 2.hiv stable on meds dr wiley on cosult 3.copd duo nebs 4.htn stable on meds 5.hld 6.lung ca...sq cell for RT..palliative to R lung
[2016-04-10] MEDS: methylPREDNISolone NA SUCC 40 MG/1 ML VIAL IVPB SCH ×3 (01:03→18:13)
[2016-04-10] MEDS: ALBUTEROL SO4 2.5/IPRATROPIUM 0.5 INH SOL 3 ML VIAL.NEB. NEB SCH ×4 (05:45→23:10)
[2016-04-10] MEDS ORDERED: PT OWN MED DRAWER 7, Y5N ONE (08:46)
[2016-04-10] MEDS: AMOX TR/POT CLAV 875MG/125MG TABLETS (FP) PO SCH ×2 (10:02→19:51)
[2016-04-10] MEDS: EMTRICITAB/RILPIVIRINE/TENOFOV 1 EACH TABLET PO SCH (10:02)
--- NOTE | 2016-04-10 12:51 | PN ---
Progress Note (short form) - Note Progress Note: PULMONARY LYING IN BED OFFERS NO COMPLAINTS VSS/AFEBRILE CHART REVIEWED TEMPORAL WASTING DIMINISHED BREATH SOUNDS RIGHT LUNG FIELD S1S2 BS+ NO EDEMA LABS/IMAGING/MEDS/NOTES REVIEWED Acute on Chronic Hypoxic Respiratory Failure improving Right Mainstem Bronchus obstruction from Squamous Cell Ca Post obstructive Pneumonia Sepsis Lactic Acidosis resolved Atelectasis HIV COPD HTN - antibiotics per ID - continue steroids - inhaled bronchodilators - IVF - continue discussions regarding goals of care, advanced directives - poor overall prognosis - palliative RT to right main stem Messi IRIZARRY MD
--- NOTE | 2016-04-10 17:53 | PN ---
Progress Note (short form) - Note Progress Note: Radiation Oncology Completed 3 of 5fx palliative RT to JOHNNY bronchus @ 15Gy. Seems to be tolerating accelerated treatment. Will cont RT on Mon. Cont supportive care.
[2016-04-10] MEDS: SODIUM CHLORIDE 1,000 ML IV SCH (18:04)
--- NOTE | 2016-04-10 19:36 | PN ---
Progress Note, Physician History of Present Illness: No new complaints - Current Medication List Current Medications: Active Medications Albuterol/Ipratropium (Duoneb -) 1 amp NEB QIDR [facility] Last Admin: 04/10/16 17:50 Dose: 1 amp Emtricitabine/Rilpivirine/Tenofovir (Complera -) 1 each PO DAILY@0800 [facility] Last Admin: 04/10/16 10:02 Dose: 1 each Sodium Chloride (Normal Saline -) 1,000 mls @ 42 mls/hr IV ASDIR [facility] Last Admin: 04/10/16 18:04 Dose: Not Given Methylprednisolone Sodium Succinate (Solu-Medrol -) 40 mg IVPB Q8H-IV [facility] Last Admin: 04/10/16 18:13 Dose: 40 mg - Objective Vital Signs: Vital Signs Temperature 98.0 F 04/10/16 18:00 Pulse Rate 113 H 04/10/16 18:00 Respiratory Rate 18 04/10/16 18:00 Blood Pressure 124/82 04/10/16 18:00 O2 Sat by Pulse Oximetry (%) 97 04/10/16 11:58 Constitutional: Yes: No Distress Neck: Yes: Supple Cardiovascular: Yes: WNL, Regular Rate and Rhythm Respiratory: Yes: WNL, Regular, CTA Bilaterally Gastrointestinal: Yes: WNL, Normal Bowel Sounds Labs: CBC, BMP 04/02/16 05:20 04/02/16 08:30 Problem List - Problems (1) Pneumonia Code(s): J18.9 - PNEUMONIA, UNSPECIFIED ORGANISM (2) COPD (chronic obstructive pulmonary disease) Code(s): J44.9 - CHRONIC OBSTRUCTIVE PULMONARY DISEASE, UNSPECIFIED (3) Acute hypoxemic respiratory failure Code(s): J96.01 - ACUTE RESPIRATORY FAILURE WITH HYPOXIA (4) HIV (human immunodeficiency virus infection) Code(s): Z21 - ASYMPTOMATIC HUMAN IMMUNODEFICIENCY VIRUS INFECTION STATUS
--- NOTE | 2016-04-10 19:40 | PN ---
Progress Note (short form) - Note Progress Note: Patient seen and examined RT ongong 3/5 fx administered to date Last Vital Signs Temp Pulse Resp BP Pulse Ox 98.0 F 113 H 18 124/82 97 04/10/16 18:00 04/10/16 18:00 04/10/16 18:00 04/10/16 18:00 04/10/16 11:58 Poor dentition Decreased breath sounds RSR Soft abdomen Ext- no calf tenderness CBC, BMP 04/02/16 05:20 04/02/16 08:30 Current Medications Generic Name Dose Route Start Last Admin Trade Name Freq PRN Reason Stop Dose Admin Albuterol/Ipratropium 1 amp 04/04/16 00:00 04/10/16 17:50 Duoneb - NEB 1 amp QIDR JESSA Administration Emtricitabine/Rilpivirine/Tenofovir 1 each 04/02/16 10:00 04/10/16 10:02 Complera - PO 1 each DAILY@0800 JESSA Administration Sodium Chloride 1,000 mls @ 42 mls/hr 04/02/16 13:45 04/10/16 18:04 Normal Saline - IV Not Given ASDIR JESSA Methylprednisolone Sodium Succinate 40 mg 04/05/16 18:00 04/10/16 18:13 Solu-Medrol - IVPB 40 mg Q8H-IV JESSA Administration Impression: Acute hypoxic Respiratory Failure- improved SCC lung Post obstructive pneumonitis HIV Anemia Thrombocytosis and leucocytosis Plan: Current therapy. Problem List - Problems (1) Lung cancer, hilus Code(s): C34.00 - MALIGNANT NEOPLASM OF UNSPECIFIED MAIN BRONCHUS (2) RLL pneumonia Code(s): J18.9 - PNEUMONIA, UNSPECIFIED ORGANISM (3) Acute hypoxemic respiratory failure Code(s): J96.01 - ACUTE RESPIRATORY FAILURE WITH HYPOXIA (4) COPD (chronic obstructive pulmonary disease) Code(s): J44.9 - CHRONIC OBSTRUCTIVE PULMONARY DISEASE, UNSPECIFIED (5) HIV disease Code(s): B20 - HUMAN IMMUNODEFICIENCY VIRUS [HIV] DISEASE
[2016-04-11] MEDS: SODIUM CHLORIDE 1,000 ML IV SCH ×3 (01:23→23:03)
[2016-04-11] MEDS: methylPREDNISolone NA SUCC 40 MG/1 ML VIAL IVPB SCH ×3 (01:23→17:18)
[2016-04-11] MEDS: ALBUTEROL SO4 2.5/IPRATROPIUM 0.5 INH SOL 3 ML VIAL.NEB. NEB SCH ×4 (06:20→23:22)
[2016-04-11] MEDS ORDERED: PT OWN MED DRAWER 7, Y5N ONE (08:54)
[2016-04-11] MEDS: EMTRICITAB/RILPIVIRINE/TENOFOV 1 EACH TABLET PO SCH (09:33)
--- NOTE | 2016-04-11 11:03 | PN ---
Progress Note (short form) - Note Progress Note: PULMONARY LYING IN BED OFFERS NO COMPLAINTS VSS/AFEBRILE CHART REVIEWED TEMPORAL WASTING IMPROVED BREATH SOUNDS RIGHT LUNG FIELD S1S2 BS+ NO EDEMA LABS/IMAGING/MEDS/NOTES REVIEWED CXR IMPROVED AERATION RIGHT LUNG FIELD Acute on Chronic Hypoxic Respiratory Failure improving Right Mainstem Bronchus obstruction from Squamous Cell Ca Post obstructive Pneumonia Sepsis Lactic Acidosis resolved Atelectasis HIV COPD HTN - continue steroids - inhaled bronchodilators - IVF - continue discussions regarding goals of care, advanced directives - poor overall prognosis - palliative RT to right main stem - check CXR/CBC/CHEM Messi IRIZARRY MD
--- NOTE | 2016-04-11 16:09 | PN ---
Progress Note, Physician History of Present Illness: stable - Current Medication List Current Medications: Active Medications Albuterol/Ipratropium (Duoneb -) 1 amp NEB QIDR [facility] Last Admin: 04/11/16 11:44 Dose: 1 amp Emtricitabine/Rilpivirine/Tenofovir (Complera -) 1 each PO DAILY@0800 [facility] Last Admin: 04/11/16 09:33 Dose: 1 each Sodium Chloride (Normal Saline -) 1,000 mls @ 42 mls/hr IV ASDIR [facility] Last Admin: 04/11/16 01:23 Dose: 42 mls/hr Methylprednisolone Sodium Succinate (Solu-Medrol -) 40 mg IVPB Q8H-IV [facility] Last Admin: 04/11/16 09:33 Dose: 40 mg - Objective Vital Signs: Vital Signs Temperature 97.1 F L 04/11/16 14:00 Pulse Rate 115 H 04/11/16 14:00 Respiratory Rate 20 04/11/16 14:00 Blood Pressure 118/79 04/11/16 14:00 O2 Sat by Pulse Oximetry (%) 99 04/11/16 10:00 Constitutional: Yes: No Distress Eyes: Yes: Conjunctiva Clear HENT: Yes: Atraumatic Neck: Yes: Supple Cardiovascular: Yes: Regular Rate and Rhythm Gastrointestinal: Yes: Normal Bowel Sounds Neurological: Yes: Alert, Oriented Labs: CBC, BMP 04/02/16 05:20 04/02/16 08:30 Problem List - Problems (1) Lung cancer Code(s): C34.90 - MALIGNANT NEOPLASM OF UNSP PART OF UNSP BRONCHUS OR LUNG (2) Acute hypoxemic respiratory failure Code(s): J96.01 - ACUTE RESPIRATORY FAILURE WITH HYPOXIA (3) HIV (human immunodeficiency virus infection) Code(s): Z21 - ASYMPTOMATIC HUMAN IMMUNODEFICIENCY VIRUS INFECTION STATUS (4) Pneumonia Code(s): J18.9 - PNEUMONIA, UNSPECIFIED ORGANISM (5) COPD (chronic obstructive pulmonary disease) Code(s): J44.9 - CHRONIC OBSTRUCTIVE PULMONARY DISEASE, UNSPECIFIED (6) Protein calorie malnutrition Code(s): E46 - UNSPECIFIED PROTEIN-CALORIE MALNUTRITION Assessment/Plan 1.acute respiratory failure/pna..post obstructive pt on nc iv steroids 2.hiv stable on meds dr wiley on consult 3.copd duo nebs 4.htn stable on meds 5.hld 6.lung ca...sq cell for RT..palliative to R lung
[2016-04-12] MEDS: methylPREDNISolone NA SUCC 40 MG/1 ML VIAL IVPB SCH ×3 (01:08→17:46)
[2016-04-12] MEDS: ALBUTEROL SO4 2.5/IPRATROPIUM 0.5 INH SOL 3 ML VIAL.NEB. NEB SCH ×4 (06:30→23:10)
[2016-04-12 06:33] LABS: MCHC 30.6 g/dl (32.0-35.9); MEAN CELL VOLUME 71.8 fl (80-96); MEAN PLT VOLUME 7.7 fl (7.5-11.1); PLATELET COUNT 375 K/MM3 (134-434); RDW 19.6 % (11.9-15.9); WHITE BLOOD COUNT 17.1 K/mm3 (4.0-10.0)
[2016-04-12 07:36] LABS: HYPOCHROMIA 1+; PLATELET COMMENT2 NO CLOTTING DETECTED; PLATELET COMMENT3 FEW LARGE PLTS; PLATELET ESTIMATE ADEQUATE (NORMAL); POLYCHROMASIA 2+
[2016-04-12 07:37] LABS: ANISOCYTOSIS 2+; MICROCYTOSIS 1+; POIKILOCYTOSIS 2+; TARGET CELLS 1+
[2016-04-12] MEDS ORDERED: PT OWN MED DRAWER 7, Y5N ONE ×2 (07:58→08:54)
[2016-04-12 08:43] LABS: ALBUMIN 2.2 g/dl (3.4-5.0); ANION GAP 8 (8-16); CALCIUM 8.3 mg/dL (8.5-10.1); CO2 29 mmol/L (21-32)
[2016-04-12 08:47] LABS: ALK PHOS 191 U/L (45-117); BILIRUBIN,TOTAL 0.5 mg/dL (0.2-1.0); SGOT/AST 16 U/L (15-37); SGPT/ALT 34 U/L (12-78); TOT PROT 5.6 g/dl (6.4-8.2)
[2016-04-12] MEDS: EMTRICITAB/RILPIVIRINE/TENOFOV 1 EACH TABLET PO SCH (09:05)
[2016-04-12 09:29] LABS: GLUCOSE,RANDOM 546 mg/dL (74-106)
--- NOTE | 2016-04-12 11:39 | PN ---
Progress Note (short form) - Note Progress Note: PULMONARY LYING IN BED OFFERS NO COMPLAINTS VSS/AFEBRILE CHART REVIEWED TEMPORAL WASTING IMPROVED BREATH SOUNDS RIGHT LUNG FIELD S1S2 BS+ NO EDEMA LABS/IMAGING/MEDS/NOTES REVIEWED CXR IMPROVED AERATION RIGHT LUNG FIELD Acute on Chronic Hypoxic Respiratory Failure improving Right Mainstem Bronchus obstruction from Squamous Cell Ca Post obstructive Pneumonia Sepsis Lactic Acidosis resolved Atelectasis HIV COPD HTN - continue steroids/needs glycemic control - inhaled bronchodilators - IVF - continue discussions regarding goals of care, advanced directives - poor overall prognosis - palliative RT to right main stem - check CXR/CBC/CHEM Messi IRIZARRY MD
--- NOTE | 2016-04-12 14:11 | PN ---
Progress Note, Physician History of Present Illness: stable - Current Medication List Current Medications: Active Medications Albuterol/Ipratropium (Duoneb -) 1 amp NEB QIDR [facility] Last Admin: 04/12/16 12:35 Dose: 1 amp Emtricitabine/Rilpivirine/Tenofovir (Complera -) 1 each PO DAILY@0800 [facility] Last Admin: 04/12/16 09:05 Dose: 1 each Sodium Chloride (Normal Saline -) 1,000 mls @ 42 mls/hr IV ASDIR [facility] Last Admin: 04/11/16 23:03 Dose: 42 mls/hr Methylprednisolone Sodium Succinate (Solu-Medrol -) 20 mg IVPB Q8H-IV JESSA - Objective Vital Signs: Vital Signs Temperature 97.7 F 04/12/16 07:00 Pulse Rate 112 H 04/12/16 07:00 Respiratory Rate 20 04/12/16 10:00 Blood Pressure 121/73 04/12/16 07:00 O2 Sat by Pulse Oximetry (%) 98 04/12/16 10:00 Constitutional: Yes: No Distress Eyes: Yes: Conjunctiva Clear HENT: Yes: Atraumatic Cardiovascular: Yes: Regular Rate and Rhythm Respiratory: Yes: CTA Bilaterally Gastrointestinal: Yes: Normal Bowel Sounds Extremities: Yes: WNL Neurological: Yes: Alert, Oriented Labs: CBC, BMP 04/12/16 06:00 04/12/16 07:50 Problem List - Problems (1) Lung cancer Code(s): C34.90 - MALIGNANT NEOPLASM OF UNSP PART OF UNSP BRONCHUS OR LUNG (2) Acute hypoxemic respiratory failure Code(s): J96.01 - ACUTE RESPIRATORY FAILURE WITH HYPOXIA (3) HIV (human immunodeficiency virus infection) Code(s): Z21 - ASYMPTOMATIC HUMAN IMMUNODEFICIENCY VIRUS INFECTION STATUS (4) Pneumonia Code(s): J18.9 - PNEUMONIA, UNSPECIFIED ORGANISM (5) COPD (chronic obstructive pulmonary disease) Code(s): J44.9 - CHRONIC OBSTRUCTIVE PULMONARY DISEASE, UNSPECIFIED (6) Protein calorie malnutrition Code(s): E46 - UNSPECIFIED PROTEIN-CALORIE MALNUTRITION Assessment/Plan 1.acute respiratory failure/pna..post obstructive iv steroids 2.hiv stable on meds dr wiley on consult 3.copd duo nebs 4.htn stable on meds 5.hld 6.lung ca...sq cell for RT..palliative to R lung
[2016-04-12] MEDS: SODIUM CHLORIDE 1,000 ML IV SCH ×2 (17:45→21:47)
[2016-04-13] MEDS: methylPREDNISolone NA SUCC 40 MG/1 ML VIAL IVPB SCH ×3 (01:59→18:12)
[2016-04-13] MEDS: ALBUTEROL SO4 2.5/IPRATROPIUM 0.5 INH SOL 3 ML VIAL.NEB. NEB SCH ×3 (06:30→18:00)
[2016-04-13] MEDS ORDERED: PT OWN MED DRAWER 7, Y5N ONE (08:23)
[2016-04-13] MEDS: EMTRICITAB/RILPIVIRINE/TENOFOV 1 EACH TABLET PO SCH (09:18)
--- NOTE | 2016-04-13 11:14 | PN ---
Progress Note, Physician History of Present Illness: PULMONARY ALERT,FEELING BETTER,LESS CONGESTED - Current Medication List Current Medications: Active Medications Albuterol/Ipratropium (Duoneb -) 1 amp NEB QIDR [facility] Last Admin: 04/13/16 06:30 Dose: 1 amp Emtricitabine/Rilpivirine/Tenofovir (Complera -) 1 each PO DAILY@0800 [facility] Last Admin: 04/13/16 09:18 Dose: 1 each Sodium Chloride (Normal Saline -) 1,000 mls @ 42 mls/hr IV ASDIR [facility] Last Admin: 04/12/16 21:47 Dose: 42 mls/hr Methylprednisolone Sodium Succinate (Solu-Medrol -) 20 mg IVPB Q8H-IV [facility] Last Admin: 04/13/16 09:18 Dose: 20 mg - Objective Vital Signs: Vital Signs Temperature 97.4 F L 04/13/16 09:21 Pulse Rate 117 H 04/13/16 09:21 Respiratory Rate 20 04/13/16 09:21 Blood Pressure 126/79 04/13/16 09:21 O2 Sat by Pulse Oximetry (%) 95 04/12/16 21:00 Constitutional: Yes: Calm, Thin Eyes: Yes: WNL HENT: Yes: WNL Neck: Yes: WNL Cardiovascular: Yes: Regular Rate and Rhythm, S1, S2 Respiratory: Yes: Rhonchi (SCATTERED LEEANN RHONCHI) Gastrointestinal: Yes: Normal Bowel Sounds, Soft Extremities: Yes: WNL Edema: No Labs: CBC, BMP 04/12/16 06:00 04/12/16 07:50 Problem List - Problems (1) Acute hypoxemic respiratory failure Code(s): J96.01 - ACUTE RESPIRATORY FAILURE WITH HYPOXIA (2) Acute respiratory distress Code(s): J80 - ACUTE RESPIRATORY DISTRESS SYNDROME (3) HIV (human immunodeficiency virus infection) Code(s): Z21 - ASYMPTOMATIC HUMAN IMMUNODEFICIENCY VIRUS INFECTION STATUS (4) Pneumonia Code(s): J18.9 - PNEUMONIA, UNSPECIFIED ORGANISM (5) Lung cancer Code(s): C34.90 - MALIGNANT NEOPLASM OF UNSP PART OF UNSP BRONCHUS OR LUNG (6) Abnormal LFTs Code(s): R79.89 - OTHER SPECIFIED ABNORMAL FINDINGS OF BLOOD CHEMISTRY (7) COPD (chronic obstructive pulmonary disease) Code(s): J44.9 - CHRONIC OBSTRUCTIVE PULMONARY DISEASE, UNSPECIFIED (8) Lung cancer, hilus Code(s): C34.00 - MALIGNANT NEOPLASM OF UNSPECIFIED MAIN BRONCHUS (9) Lung mass Code(s): R91.8 - OTHER NONSPECIFIC ABNORMAL FINDING OF LUNG FIELD Assessment/Plan ASSESSMENT AND PLAN: Acute on Chronic Hypoxic Respiratory Failure improved 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
--- NOTE | 2016-04-13 14:52 | PN ---
Progress Note (short form) - Note Progress Note: Radiation Oncology Tolerating accelerated RT with clinical improvement. Will complete palliative RT to JOHNNY bronchus tomorrow. Monitor CBC. Cont supportive care. Prognosis poor.
--- NOTE | 2016-04-13 17:07 | PN ---
Progress Note (short form) - Note Progress Note: Patient seen and examined Denies any complaints Last Vital Signs Temp Pulse Resp BP Pulse Ox 98.1 F 108 H 20 100/51 96 04/06/16 14:00 04/06/16 14:00 04/06/16 14:00 04/06/16 14:00 04/06/16 10:25 HEENT: ALESIA, EOM Intact Cor: RSR, No murmurs, No gallops Lungs: decreased at bases.scattered coarse rhonchi Abd: Soft, Normal bowel sounds, No organomegaly Ext:No significant edema Current Medications Albuterol Sulfate (Ventolin 0.083% Nebulizer Soln -) 1 amp NEB Q4H PRN PRN Reason: SHORT OF BREATH/WHEEZING Albuterol/Ipratropium (Duoneb -) 1 amp NEB QIDR [facility] Last Admin: 04/06/16 11:08 Dose: Not Given Emtricitabine/Rilpivirine/Tenofovir (Complera -) 1 each PO DAILY@0800 [facility] Last Admin: 04/06/16 10:59 Dose: 1 each Heparin Sodium (Porcine) (Heparin -) 5,000 unit SQ BID [facility] Last Admin: 04/06/16 09:01 Dose: 5,000 unit Piperacillin Sod/Tazobactam Sod (Zosyn 3.375gm Ivpb (Pre-Docked)) 50 mls @ 100 mls/hr IVPB Q6H-IV [facility] Last Admin: 04/06/16 14:21 Dose: 100 mls/hr Sodium Chloride (Normal Saline -) 1,000 mls @ 42 mls/hr IV ASDIR [facility] Last Admin: 04/06/16 14:22 Dose: 42 mls/hr Methylprednisolone Sodium Succinate (Solu-Medrol -) 40 mg IVPB Q8H-IV [facility] Last Admin: 04/06/16 09:01 Dose: 40 mg Labs reviewed A/P 70 y/o patient with HIV, severe COPD, recently diagnosed squamous cell lung cancer, now with shortness of breath. CT chest Rt. lung collapse, mediastinal shift, post obstructive pneumonia ICU team and myself discussed with paient and family overall situation on about impending resp. failure due to underlying malignancy. aggressiveness of the tumor especially given his immunocompromised status. Poor performance status and overallpoor prognosis. discussed that they need to address advance directives. Getting palliative RT--completing tomorrow s/p zosyn/augmentin awaiting placement after RT
[2016-04-13] MEDS: SODIUM CHLORIDE 1,000 ML IV SCH ×2 (18:14→21:33)
--- NOTE | 2016-04-13 19:22 | PN ---
Progress Note, Physician History of Present Illness: stable - Current Medication List Current Medications: Active Medications Albuterol/Ipratropium (Duoneb -) 1 amp NEB QIDR [facility] Last Admin: 04/13/16 11:42 Dose: 1 amp Emtricitabine/Rilpivirine/Tenofovir (Complera -) 1 each PO DAILY@0800 [facility] Last Admin: 04/13/16 09:18 Dose: 1 each Sodium Chloride (Normal Saline -) 1,000 mls @ 42 mls/hr IV ASDIR [facility] Last Admin: 04/13/16 18:14 Dose: Not Given Methylprednisolone Sodium Succinate (Solu-Medrol -) 20 mg IVPB Q8H-IV [facility] Last Admin: 04/13/16 18:12 Dose: 20 mg - Objective Vital Signs: Vital Signs Temperature 97.4 F L 04/13/16 19:07 Pulse Rate 122 H 04/13/16 19:07 Respiratory Rate 22 04/13/16 19:07 Blood Pressure 125/90 04/13/16 19:07 O2 Sat by Pulse Oximetry (%) 96 04/13/16 11:41 Constitutional: Yes: No Distress HENT: Yes: Atraumatic Neck: Yes: Supple Cardiovascular: Yes: Regular Rate and Rhythm Respiratory: Yes: CTA Bilaterally Gastrointestinal: Yes: Normal Bowel Sounds Extremities: Yes: WNL Neurological: Yes: Alert, Oriented Labs: CBC, BMP 04/12/16 06:00 04/12/16 07:50 Problem List - Problems (1) Lung cancer Code(s): C34.90 - MALIGNANT NEOPLASM OF UNSP PART OF UNSP BRONCHUS OR LUNG (2) Acute hypoxemic respiratory failure Code(s): J96.01 - ACUTE RESPIRATORY FAILURE WITH HYPOXIA (3) HIV (human immunodeficiency virus infection) Code(s): Z21 - ASYMPTOMATIC HUMAN IMMUNODEFICIENCY VIRUS INFECTION STATUS (4) Pneumonia Code(s): J18.9 - PNEUMONIA, UNSPECIFIED ORGANISM (5) COPD (chronic obstructive pulmonary disease) Code(s): J44.9 - CHRONIC OBSTRUCTIVE PULMONARY DISEASE, UNSPECIFIED (6) Protein calorie malnutrition Code(s): E46 - UNSPECIFIED PROTEIN-CALORIE MALNUTRITION Assessment/Plan 1.acute respiratory failure/pna..post obstructive iv steroids 2.hiv stable on meds dr wiley on consult 3.copd duo nebs 4.htn stable on meds 5.hld 6.lung ca...sq cell for RT..palliative to R lung..last treatmet tomorrow per oncology dc planning for placement pt eval
[2016-04-14] MEDS: methylPREDNISolone NA SUCC 40 MG/1 ML VIAL IVPB SCH ×3 (01:45→18:47)
[2016-04-14] MEDS: ALBUTEROL SO4 2.5/IPRATROPIUM 0.5 INH SOL 3 ML VIAL.NEB. NEB SCH ×5 (06:00→23:21)
[2016-04-14] MEDS: EMTRICITAB/RILPIVIRINE/TENOFOV 1 EACH TABLET PO SCH (09:02)
--- NOTE | 2016-04-14 11:34 | PN ---
Progress Note, Physician History of Present Illness: pulmonary alert,nad,less congested - Current Medication List Current Medications: Active Medications Albuterol/Ipratropium (Duoneb -) 1 amp NEB QIDR [facility] Last Admin: 04/14/16 06:00 Dose: 1 amp Emtricitabine/Rilpivirine/Tenofovir (Complera -) 1 each PO DAILY@0800 [facility] Last Admin: 04/14/16 09:02 Dose: 1 each Sodium Chloride (Normal Saline -) 1,000 mls @ 42 mls/hr IV ASDIR [facility] Last Admin: 04/13/16 21:33 Dose: 42 mls/hr Methylprednisolone Sodium Succinate (Solu-Medrol -) 20 mg IVPB Q8H-IV [facility] Last Admin: 04/14/16 09:05 Dose: 20 mg - Objective Vital Signs: Vital Signs Temperature 97.5 F L 04/14/16 09:39 Pulse Rate 115 H 04/14/16 09:39 Respiratory Rate 20 04/14/16 09:39 Blood Pressure 137/106 04/14/16 09:39 O2 Sat by Pulse Oximetry (%) 96 04/13/16 21:00 Constitutional: Yes: Calm, Thin Eyes: Yes: WNL HENT: Yes: WNL Neck: Yes: WNL Cardiovascular: Yes: Regular Rate and Rhythm, S1, S2 Respiratory: Yes: Diminished, Rhonchi (few scattered gracie rhonchi) Gastrointestinal: Yes: Normal Bowel Sounds, Soft Extremities: Yes: WNL Edema: No Labs: CBC, BMP 04/12/16 06:00 04/12/16 07:50 Problem List - Problems (1) Acute hypoxemic respiratory failure Code(s): J96.01 - ACUTE RESPIRATORY FAILURE WITH HYPOXIA (2) Acute respiratory distress Code(s): J80 - ACUTE RESPIRATORY DISTRESS SYNDROME (3) HIV (human immunodeficiency virus infection) Code(s): Z21 - ASYMPTOMATIC HUMAN IMMUNODEFICIENCY VIRUS INFECTION STATUS (4) Pneumonia Code(s): J18.9 - PNEUMONIA, UNSPECIFIED ORGANISM (5) Lung cancer Code(s): C34.90 - MALIGNANT NEOPLASM OF UNSP PART OF UNSP BRONCHUS OR LUNG (6) Abnormal LFTs Code(s): R79.89 - OTHER SPECIFIED ABNORMAL FINDINGS OF BLOOD CHEMISTRY (7) COPD (chronic obstructive pulmonary disease) Code(s): J44.9 - CHRONIC OBSTRUCTIVE PULMONARY DISEASE, UNSPECIFIED (8) Lung cancer, hilus Code(s): C34.00 - MALIGNANT NEOPLASM OF UNSPECIFIED MAIN BRONCHUS (9) Lung mass Code(s): R91.8 - OTHER NONSPECIFIC ABNORMAL FINDING OF LUNG FIELD Assessment/Plan ASSESSMENT AND PLAN: Acute on Chronic Hypoxic Respiratory Failure improved 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
--- NOTE | 2016-04-14 14:03 | PN ---
Progress Note (short form) - Note Progress Note: Radiation Oncology Feels good with less SOB and congestion. Completed palliative RT today. Total dose 25Gy. Has had improvement of aeration on daily tx imaging. Cont supportive care. Palliative Care.
[2016-04-14] MEDS: SODIUM CHLORIDE 1,000 ML IV SCH (14:25)
--- NOTE | 2016-04-14 15:42 | CONSULT ---
Consult Consult Specialty:: Cardiology Referred by:: Dr. Burns Reason for Consultation:: Tachycardia - History of Present Illness Chief Complaint: SOB History of Present Illness: 70 year old man with a history of severe COPD, Lung Ca, HIV admitted with sob found to have right lung collaps, mediastinal shift, post-obstructive PNA and noted to have sinus tachycardia throughout the admission. Pt receiving palliative RT. Pt. seen and examined today with family at bedside. pt is awake, alert, comfortable. He denies any complaints currently. Denies having any palpitations. no chest pain. denies sob currently. - History Source History Provided By: Patient, Family Member Limitations to Obtaining History: No Limitations - Past Medical History Cardio/Vascular: Yes: HTN, Hyperlipdemia Pulmonary: Yes: Cancer (LUNG), COPD Infectious Disease: Yes: HIV - Alcohol/Substance Use Hx Alcohol Use: No - Smoking History Smoking history: Former smoker Have you smoked in the past 12 months: No Aproximately how many cigarettes per day: 0 If you are a former smoker, when did you quit?: 2 MO - Social History History of Recent Travel: No Home Medications - Allergies Allergies/Adverse Reactions: Allergies Allergy/AdvReac Type Severity Reaction Status Date / Time No Known Allergies Allergy Verified 04/01/16 15:05 - Home Medications Home Medications: Ambulatory Orders Emtricitab/Rilpivirine/Tenofov [Complera -] 1 each PO DAILY 01/29/16 Rosuvastatin [Crestor -] 20 mg PO DAILY 01/29/16 Albuterol Sulfate Inhaler - [Ventolin Hfa Inhaler -] 1 - 2 inh PO Q4H #1 inhaler 02/05/16 Albuterol 0.083% Nebulizer Mami [Ventolin 0.083% Nebulizer Soln -] 1 neb NEB Q6H PRN 04/01/16 Family Disease History - Family Disease History Family History: Denies Review of Systems - Review of Systems Constitutional: reports: Weakness. denies: No Symptoms, Chills, Diaphoresis, Fever, Lethargy, Loss of Appetite, Malaise, Night Sweats, Unintentional Wgt. Loss, Other Eyes: denies: No Symptoms, Blind Spots, Blurred Vision, Double Vision, Eye Pain , Floaters, Photophobia, Recent Change in Vision, Other HENT: denies: No Symptoms, Difficult Swallowing, Ear Discharge, Ear Pain, Epistaxis, Gingival Bleeding, Hearing Loss, Mouth Swelling, Nasal Congestion, Ocular Prosthesis, Throat Pain, Toothache, Ringing in Ears, Other Neck: denies: No Symptoms, Decreased ROM, Lumps, Pain on Movement, Stiffness, Swollen Glands, Tenderness, Other Cardiovascular: reports: Chest Pain, Shortness of Breath. denies: No Symptoms, Edema, Palpitations, Other Respiratory: reports: Exercise Intolerance, SOB, SOB on Exertion. denies: No Symptoms, Cough, Hemoptysis, Orthopnea, PND, Snoring, Wheezing, Other Gastrointestinal: denies: No Symptoms, Abdominal Pain, Bloating, Constipation, Diarrhea, Dysphagia, Indigestion, Melena, Nausea, Rectal Bleeding, Vomiting, Vomiting Blood, Other Genitourinary: denies: No Symptoms, Burning, Discharge, Dysuria, Flank Pain, Frequency, Hematuria, Incontinence, Lesions, Menses, Pain, Testicular Mass, Testicular Pain, Testicular Swelling, Urgency, Vaginal Bleeding, Other Breasts: denies: No Symptoms Reported, See HPI, Breast Implants, Discharge from Nipple, Lumps, Pain, Skin Changes, Other Musculoskeletal: denies: No Symptoms, Back Pain, Crepitus, Decreased ROM, Extremity Pain, Joint Pain, Joint Swelling, Muscle Pain, Muscle Cramps, Muscle Weakness, Other Integumentary: denies: No Symptoms, Blister, Bruising, Change in Color, Eczema, Erythema, Incision, Lesions, Lump, Pallor, Pruritis, Rash, Wound, Other Neurological: denies: No Symptoms, Change in LOC, Change in Speech, Confusion, Dizziness, Headache, Incoordination, Numbness, Parasthesia, Pre-Existing Deficit , Seizure, Syncope, Tremors, Unsteady Gait, Weakness, Other Endocrine: denies: No Symptoms, Excessive Sweating, Flushing, Increased Hunger, Increased Thirst, Intolerance to Cold, Intolerance to Heat, Unexplained Weight Gain, Unexplained Weight Loss, Other Hematology/Lymphatic: denies: No Symptoms, Easily Bruised, Excessive Bleeding, Swollen Glands, Other Psychiatric: denies: No Symptoms, Altered Sleep Pattern, Anxiety, Depression, Hallucinations, Panic, Paranoia, Suicidal, Other - Risk Factors Known Risk Factors: Yes: Hypercholesterolemia, Hypertension, Smoking Vital Signs: Vital Signs Temperature 97.9 F 04/14/16 15:00 Pulse Rate 120 H 04/14/16 15:00 Respiratory Rate 20 04/14/16 15:00 Blood Pressure 140/94 04/14/16 15:00 O2 Sat by Pulse Oximetry (%) 95 04/14/16 12:21 Constitutional: Yes: No Distress, Calm, Cachectic, Thin Eyes: Yes: Conjunctiva Clear, EOM Intact, PERRL HENT: Yes: Atraumatic, Normocephalic Neck: Yes: Supple, Trachea Midline Respiratory: Yes: Regular, Diminished. No: Rales, Rhonchi, Wheezes Gastrointestinal: Yes: WNL, Normal Bowel Sounds, Soft. No: Distention, Tenderness Cardiovascular: Yes: Tachycardia. No: Bradycardia, Pulse Irregular, Gallop, Rub , Varicosities JVD: No Carotid Bruit: No PMI: Non-Displaced Heart Sounds: Yes: S1, S2. No: Split S2, S3, S4, Clicks, Gallop, Rub, Bruit Murmur: No: Systolic Murmur, Diastolic Murmur Musculoskeletal: Yes: Muscle Weakness Extremities: Yes: WNL Edema: No Peripheral Pulses WNL: Yes Peripheral Pulses: 2+ Left Doralis Pedis, 2+ Right Dorsalis Pedis Integumentary: Yes: WNL Neurological: Yes: Alert, Oriented Psychiatric: Yes: Alert, Oriented - Other Data Labs, Other Data: CBC, BMP 04/12/16 06:00 04/12/16 07:50 EKG-Sinus tach 138bpm, poor R progression Imaging - Results Chest X-ray: Report Reviewed, Image Reviewed EKG: Report Reviewed, Image Reviewed Other: Report Reviewed, Image Reviewed (tele-sinus tach 110-150bpm, apcs, pvcs) Problem List - Problems (1) COPD (chronic obstructive pulmonary disease) Code(s): J44.9 - CHRONIC OBSTRUCTIVE PULMONARY DISEASE, UNSPECIFIED (2) Lung cancer Code(s): C34.90 - MALIGNANT NEOPLASM OF UNSP PART OF UNSP BRONCHUS OR LUNG (3) Lung mass Code(s): R91.8 - OTHER NONSPECIFIC ABNORMAL FINDING OF LUNG FIELD (4) Post-obstructive pneumonia due to foreign body aspiration Code(s): J18.9 - PNEUMONIA, UNSPECIFIED ORGANISM T17.908S - UNSP FB IN RESP TRACT, PART UNSP CAUSING OTH INJURY, SEQUELA (5) Acute hypoxemic respiratory failure Code(s): J96.01 - ACUTE RESPIRATORY FAILURE WITH HYPOXIA (6) HIV (human immunodeficiency virus infection) Code(s): Z21 - ASYMPTOMATIC HUMAN IMMUNODEFICIENCY VIRUS INFECTION STATUS (7) Tachycardia Code(s): R00.0 - TACHYCARDIA, UNSPECIFIED Assessment/Plan 70 year old man with a history of severe COPD, Lung Ca, HIV admitted with sob found to have right lung collapse, mediastinal shift, post-obstructive PNA and noted to have sinus tachycardia throughout the admission. Pt receiving palliative RT. Tachycardia-sinus tach, no arrhythmia seen on ekg or tele monitoring -sinus tachycardia likely secondary to underlying medical illness -pt is asymptomatic from a tachycardia standpoint, no palpitations -would not start medical therapy with AV cherrie blockers at this point -cta chest 04/01/16 showed no evidence of PE -cont supportive care, IVF hydration as needed -can check an echo to confirm no significant structural heart disease or pericardial effusion -check TFTs
--- NOTE | 2016-04-14 18:30 | PN ---
Progress Note, Physician History of Present Illness: stable - Current Medication List Current Medications: Active Medications Albuterol/Ipratropium (Duoneb -) 1 amp NEB QIDR [facility] Last Admin: 04/14/16 17:03 Dose: Not Given Emtricitabine/Rilpivirine/Tenofovir (Complera -) 1 each PO DAILY@0800 [facility] Last Admin: 04/14/16 09:02 Dose: 1 each Sodium Chloride (Normal Saline -) 1,000 mls @ 42 mls/hr IV ASDIR [facility] Last Admin: 04/14/16 14:25 Dose: 42 mls/hr Methylprednisolone Sodium Succinate (Solu-Medrol -) 20 mg IVPB Q8H-IV [facility] Last Admin: 04/14/16 09:05 Dose: 20 mg - Objective Vital Signs: Vital Signs Temperature 97.9 F 04/14/16 15:00 Pulse Rate 120 H 04/14/16 15:00 Respiratory Rate 20 04/14/16 15:00 Blood Pressure 140/94 04/14/16 15:00 O2 Sat by Pulse Oximetry (%) 95 04/14/16 12:21 Constitutional: Yes: No Distress HENT: Yes: Atraumatic Neck: Yes: Supple Cardiovascular: Yes: Regular Rate and Rhythm Respiratory: Yes: CTA Bilaterally Gastrointestinal: Yes: Normal Bowel Sounds Extremities: Yes: WNL Neurological: Yes: Alert, Oriented Labs: CBC, BMP 04/12/16 06:00 04/12/16 07:50 Problem List - Problems (1) Lung cancer Code(s): C34.90 - MALIGNANT NEOPLASM OF UNSP PART OF UNSP BRONCHUS OR LUNG (2) Acute hypoxemic respiratory failure Code(s): J96.01 - ACUTE RESPIRATORY FAILURE WITH HYPOXIA (3) HIV (human immunodeficiency virus infection) Code(s): Z21 - ASYMPTOMATIC HUMAN IMMUNODEFICIENCY VIRUS INFECTION STATUS (4) Pneumonia Code(s): J18.9 - PNEUMONIA, UNSPECIFIED ORGANISM (5) COPD (chronic obstructive pulmonary disease) Code(s): J44.9 - CHRONIC OBSTRUCTIVE PULMONARY DISEASE, UNSPECIFIED (6) Protein calorie malnutrition Code(s): E46 - UNSPECIFIED PROTEIN-CALORIE MALNUTRITION Assessment/Plan 1.acute respiratory failure/pna..post obstructive iv steroids 2.hiv stable on meds dr wiley on consult 3.copd duo nebs 4.htn stable on meds 5.hld 6.lung ca...sq cell for RT..palliative to R lung..last treatmet done dc planning for placement pt eval
--- NOTE | 2016-04-14 19:34 | PN ---
Progress Note (short form) - Note Progress Note: Patient seen and examined Remains weak and debilitated S/P RT Last Vital Signs Temp Pulse Resp BP Pulse Ox 97.5 F L 121 H 22 137/93 95 04/14/16 18:22 04/14/16 18:22 04/14/16 18:22 04/14/16 18:22 04/14/16 12:21 HEENT: ALESIA, EOM Intact,poor dentition , 2 frontal teeth Oropharynx: No thrush, No mucositis Cor: RSR, No murmurs, No gallops Lungs: diminished breath sounds Abd: Soft, Normal bowel sounds, No organomegaly Ext:No significant edema Skin: No rashes, Integument intact CBC, BMP 04/12/16 06:00 04/12/16 07:50 Current Medications Generic Name Dose Route Start Last Admin Trade Name Freq PRN Reason Stop Dose Admin Albuterol/Ipratropium 1 amp 04/04/16 00:00 04/14/16 17:03 Duoneb - NEB Not Given QIDR [facility] Emtricitabine/Rilpivirine/Tenofovir 1 each 04/02/16 10:00 04/14/16 09:02 Complera - PO 1 each DAILY@0800 [facility] Administration Sodium Chloride 1,000 mls @ 42 mls/hr 04/02/16 13:45 04/14/16 14:25 Normal Saline - IV 42 mls/hr ASDIR [facility] Administration Methylprednisolone Sodium Succinate 20 mg 04/12/16 11:37 04/14/16 18:47 Solu-Medrol - IVPB 20 mg Q8H-IV [facility] Administration Impression: SCC lung Anemia HIV S/P RT Plan Not a chemotherapy candidate Social service. Problem List - Problems (1) Lung cancer, hilus Code(s): C34.00 - MALIGNANT NEOPLASM OF UNSPECIFIED MAIN BRONCHUS (2) RLL pneumonia Code(s): J18.9 - PNEUMONIA, UNSPECIFIED ORGANISM (3) Acute hypoxemic respiratory failure Code(s): J96.01 - ACUTE RESPIRATORY FAILURE WITH HYPOXIA (4) COPD (chronic obstructive pulmonary disease) Code(s): J44.9 - CHRONIC OBSTRUCTIVE PULMONARY DISEASE, UNSPECIFIED (5) HIV disease Code(s): B20 - HUMAN IMMUNODEFICIENCY VIRUS [HIV] DISEASE
[2016-04-15] MEDS: methylPREDNISolone NA SUCC 40 MG/1 ML VIAL IVPB SCH ×2 (01:17→09:09)
[2016-04-15] MEDS: ALBUTEROL SO4 2.5/IPRATROPIUM 0.5 INH SOL 3 ML VIAL.NEB. NEB SCH ×3 (06:20→17:55)
[2016-04-15] MEDS: EMTRICITAB/RILPIVIRINE/TENOFOV 1 EACH TABLET PO SCH (09:09)
--- NOTE | 2016-04-15 09:23 | PN ---
Progress Note, Physician Chief Complaint: resting comfortably, alert family at bedside Denies chest pain or SOB TELE: Sinus tach, APCs/ short self limited runs PSVT - Current Medication List Current Medications: Active Medications Albuterol/Ipratropium (Duoneb -) 1 amp NEB QIDR [facility] Last Admin: 04/15/16 06:20 Dose: 1 amp Emtricitabine/Rilpivirine/Tenofovir (Complera -) 1 each PO DAILY@0800 [facility] Last Admin: 04/15/16 09:09 Dose: 1 each Sodium Chloride (Normal Saline -) 1,000 mls @ 42 mls/hr IV ASDIR [facility] Last Admin: 04/14/16 14:25 Dose: 42 mls/hr Methylprednisolone Sodium Succinate (Solu-Medrol -) 20 mg IVPB Q8H-IV [facility] Last Admin: 04/15/16 09:09 Dose: 20 mg - Objective Vital Signs: Vital Signs Temperature 97.4 F L 04/15/16 09:12 Pulse Rate 135 H 04/15/16 09:12 Respiratory Rate 24 04/15/16 09:12 Blood Pressure 142/96 04/15/16 09:12 O2 Sat by Pulse Oximetry (%) 96 04/14/16 21:00 Constitutional: Yes: No Distress, Cachectic Eyes: Yes: Conjunctiva Clear Cardiovascular: Yes: Tachycardia Respiratory: Yes: Other (decreased breath sounds bilaterally) Gastrointestinal: Yes: Soft Edema: No Neurological: Yes: Alert Labs: CBC, BMP 04/12/16 06:00 04/12/16 07:50 - ....Imaging EKG: Image Reviewed Assessment/Plan Assessment/Plan 70 year old man with a history of severe COPD, Lung Ca, HIV admitted with sob found to have right lung collapse, mediastinal shift, post-obstructive PNA and noted to have sinus tachycardia throughout the admission. Pt receiving palliative RT. Tachycardia-sinus tach and periods of PSVT likely secondary to underlying medical illness -pt is asymptomatic from a tachycardia standpoint, no palpitations -now that he has demonstrated some runs of PSVT, we can begin Cardizem 30mg PO q6 H -cta chest 04/01/16 showed no evidence of PE -cont supportive care, IVF hydration as needed - echo to confirm no significant structural heart disease or pericardial effusion -TFTs nl
[2016-04-15] MEDS: dilTIAZem HCL 30 MG TABLET (FP) PO SCH ×4 (10:58→21:05)
--- NOTE | 2016-04-15 11:33 | PN ---
Progress Note, Physician History of Present Illness: pulmonary alert,mildly dyspneic on nasal o2. - Current Medication List Current Medications: Active Medications Albuterol/Ipratropium (Duoneb -) 1 amp NEB QIDR [facility] Last Admin: 04/15/16 11:25 Dose: 1 amp Diltiazem HCl (Cardizem -) 30 mg PO QID [facility] Last Admin: 04/15/16 10:58 Dose: 30 mg Emtricitabine/Rilpivirine/Tenofovir (Complera -) 1 each PO DAILY@0800 [facility] Last Admin: 04/15/16 09:09 Dose: 1 each Sodium Chloride (Normal Saline -) 1,000 mls @ 42 mls/hr IV ASDIR [facility] Last Admin: 04/14/16 14:25 Dose: 42 mls/hr Methylprednisolone Sodium Succinate (Solu-Medrol -) 20 mg IVPB Q8H-IV [facility] Last Admin: 04/15/16 09:09 Dose: 20 mg - Objective Vital Signs: Vital Signs Temperature 97.4 F L 04/15/16 09:12 Pulse Rate 123 H 04/15/16 09:55 Respiratory Rate 24 04/15/16 09:12 Blood Pressure 142/96 04/15/16 09:12 O2 Sat by Pulse Oximetry (%) 95 04/15/16 09:55 Constitutional: Yes: Cachectic, Other (mildly dyspneic) Eyes: Yes: WNL HENT: Yes: WNL Neck: Yes: WNL Cardiovascular: Yes: Regular Rate and Rhythm, S1, S2 Respiratory: Yes: Diminished Gastrointestinal: Yes: Normal Bowel Sounds, Soft Extremities: Yes: WNL Edema: No Labs: Problem List - Problems (1) Acute hypoxemic respiratory failure Code(s): J96.01 - ACUTE RESPIRATORY FAILURE WITH HYPOXIA (2) Acute respiratory distress Code(s): J80 - ACUTE RESPIRATORY DISTRESS SYNDROME (3) HIV (human immunodeficiency virus infection) Code(s): Z21 - ASYMPTOMATIC HUMAN IMMUNODEFICIENCY VIRUS INFECTION STATUS (4) Pneumonia Code(s): J18.9 - PNEUMONIA, UNSPECIFIED ORGANISM (5) Lung cancer Code(s): C34.90 - MALIGNANT NEOPLASM OF UNSP PART OF UNSP BRONCHUS OR LUNG (6) Abnormal LFTs Code(s): R79.89 - OTHER SPECIFIED ABNORMAL FINDINGS OF BLOOD CHEMISTRY (7) COPD (chronic obstructive pulmonary disease) Code(s): J44.9 - CHRONIC OBSTRUCTIVE PULMONARY DISEASE, UNSPECIFIED (8) Lung cancer, hilus Code(s): C34.00 - MALIGNANT NEOPLASM OF UNSPECIFIED MAIN BRONCHUS (9) Lung mass Code(s): R91.8 - OTHER NONSPECIFIC ABNORMAL FINDING OF LUNG FIELD Assessment/Plan ASSESSMENT AND PLAN: Acute on Chronic Hypoxic Respiratory Failure improved 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
[2016-04-15] MEDS: SODIUM CHLORIDE 1,000 ML IV SCH (14:55)
--- NOTE | 2016-04-15 18:00 | PN ---
Progress Note, Physician History of Present Illness: stable - Current Medication List Current Medications: Active Medications Albuterol/Ipratropium (Duoneb -) 1 amp NEB QIDR [facility] Last Admin: 04/15/16 11:25 Dose: 1 amp Diltiazem HCl (Cardizem -) 30 mg PO QID [facility] Last Admin: 04/15/16 14:54 Dose: 30 mg Emtricitabine/Rilpivirine/Tenofovir (Complera -) 1 each PO DAILY@0800 [facility] Last Admin: 04/15/16 09:09 Dose: 1 each Prednisone (Deltasone -) 20 mg PO DAILY [facility] - Objective Vital Signs: Vital Signs Temperature 97.5 F L 04/15/16 14:28 Pulse Rate 128 H 04/15/16 14:28 Respiratory Rate 28 H 04/15/16 14:28 Blood Pressure 134/93 04/15/16 14:28 O2 Sat by Pulse Oximetry (%) 95 04/15/16 09:55 Constitutional: Yes: Calm HENT: Yes: Atraumatic Neck: Yes: Supple Cardiovascular: Yes: Regular Rate and Rhythm Respiratory: Yes: CTA Bilaterally, Rhonchi Gastrointestinal: Yes: Normal Bowel Sounds Extremities: Yes: WNL Neurological: Yes: Alert, Oriented Labs: CBC, BMP 04/12/16 06:00 04/12/16 07:50 Problem List - Problems (1) Lung cancer Code(s): C34.90 - MALIGNANT NEOPLASM OF UNSP PART OF UNSP BRONCHUS OR LUNG (2) Acute hypoxemic respiratory failure Code(s): J96.01 - ACUTE RESPIRATORY FAILURE WITH HYPOXIA (3) HIV (human immunodeficiency virus infection) Code(s): Z21 - ASYMPTOMATIC HUMAN IMMUNODEFICIENCY VIRUS INFECTION STATUS (4) Pneumonia Code(s): J18.9 - PNEUMONIA, UNSPECIFIED ORGANISM (5) COPD (chronic obstructive pulmonary disease) Code(s): J44.9 - CHRONIC OBSTRUCTIVE PULMONARY DISEASE, UNSPECIFIED (6) Protein calorie malnutrition Code(s): E46 - UNSPECIFIED PROTEIN-CALORIE MALNUTRITION Assessment/Plan 1.acute respiratory failure/pna..post obstructive iv steroids..will switch to po prednisone 2.hiv stable on meds 3.copd duo nebs 4.htn stable on meds 5.hld 6.lung ca...sq cell for RT..palliative to R lung..last treatmet done dc ivf dc when bed available
[2016-04-15] MEDS: predniSONE 20 MG TABLET (UD) PO SCH (18:20)
--- NOTE | 2016-04-15 19:06 | PN ---
Progress Note (short form) - Note Progress Note: Patient seen and examined Denies any complaints Last Vital Signs Temp Pulse Resp BP Pulse Ox 97.4 F L 124 H 24 135/90 95 04/15/16 18:38 04/15/16 18:38 04/15/16 18:38 04/15/16 18:38 04/15/16 09:55 HEENT: ALESIA, EOM Intact Cor: RSR, No murmurs, No gallops Lungs: decreased at bases.scattered coarse rhonchi Abd: Soft, Normal bowel sounds, No organomegaly Ext:No significant edema Current Medications Albuterol/Ipratropium (Duoneb -) 1 amp NEB QIDR [facility] Last Admin: 04/15/16 17:55 Dose: 1 amp Diltiazem HCl (Cardizem -) 30 mg PO QID [facility] Last Admin: 04/15/16 18:20 Dose: 30 mg Emtricitabine/Rilpivirine/Tenofovir (Complera -) 1 each PO DAILY@0800 [facility] Last Admin: 04/15/16 09:09 Dose: 1 each Prednisone (Deltasone -) 20 mg PO DAILY [facility] Last Admin: 04/15/16 18:20 Dose: 20 mg Labs reviewed A/P 70 y/o patient with HIV, severe COPD, recently diagnosed squamous cell lung cancer, now with shortness of breath. CT chest Rt. lung collapse, mediastinal shift, post obstructive pneumonia ICU team and myself discussed with paient and family overall situation on about impending resp. failure due to underlying malignancy. aggressiveness of the tumor especially given his immunocompromised status. Poor performance status and overallpoor prognosis. discussed that they need to address advance directives. s/p palliative RT s/p zosyn/augmentin poor performance status poor overall prognosis to consider [facility] placement
[2016-04-16] MEDS: ALBUTEROL SO4 2.5/IPRATROPIUM 0.5 INH SOL 3 ML VIAL.NEB. NEB SCH ×5 (00:05→23:25)
[2016-04-16] MEDS ORDERED: PT OWN MED DRAWER 7, Y5N ONE ×2 (08:41→09:02)
[2016-04-16] MEDS: dilTIAZem HCL 30 MG TABLET (FP) PO SCH ×4 (09:07→21:17)
[2016-04-16] MEDS: predniSONE 20 MG TABLET (UD) PO SCH (09:07)
[2016-04-16] MEDS: EMTRICITAB/RILPIVIRINE/TENOFOV 1 EACH TABLET PO SCH (09:07)
--- NOTE | 2016-04-16 11:05 | PN ---
Progress Note, Physician History of Present Illness: seen and examined today in [facility]. no overnight events. no new complaints. - Current Medication List Current Medications: Active Medications Albuterol/Ipratropium (Duoneb -) 1 amp NEB QIDR [facility] Last Admin: 04/16/16 07:19 Dose: 1 amp Diltiazem HCl (Cardizem -) 30 mg PO QID [facility] Last Admin: 04/16/16 09:07 Dose: 30 mg Emtricitabine/Rilpivirine/Tenofovir (Complera -) 1 each PO DAILY@0800 [facility] Last Admin: 04/16/16 09:07 Dose: 1 each Prednisone (Deltasone -) 20 mg PO DAILY [facility] Last Admin: 04/16/16 09:07 Dose: 20 mg - Objective Vital Signs: Vital Signs Temperature 97.7 F 04/16/16 06:00 Pulse Rate 117 H 04/16/16 09:09 Respiratory Rate 23 04/16/16 09:09 Blood Pressure 126/97 04/16/16 09:09 O2 Sat by Pulse Oximetry (%) 91 L 04/15/16 21:00 Constitutional: Yes: No Distress, Calm, Cachectic, Thin Eyes: Yes: Conjunctiva Clear, EOM Intact, PERRL HENT: Yes: Atraumatic, Normocephalic Cardiovascular: Yes: Tachycardia, S1, S2. No: Bradycardia, Pulse Irregular, Bruit, JVD, Gallop, Murmur, Rub, S3, S4, Varicosities Respiratory: Yes: Regular, Diminished, Rhonchi. No: Rales, Wheezes Gastrointestinal: Yes: Normal Bowel Sounds, Soft. No: Distention, Tenderness Musculoskeletal: Yes: Muscle Weakness Extremities: Yes: WNL Edema: No Peripheral Pulses WNL: Yes Peripheral Pulses: Left Doralis Pedis: 2+, Right Dorsalis Pedis: 2+ Integumentary: Yes: WNL Neurological: Yes: Alert, Oriented, Cran Nerves II-XII Intact Psychiatric: Yes: Alert, Oriented Labs: CBC, BMP 04/12/16 06:00 04/12/16 07:50 - ....Imaging Chest X-ray: Report Reviewed, Image Reviewed EKG: Report Reviewed, Image Reviewed Other: Report Reviewed, Image Reviewed (tele-sinus tach, short runs PSVT, PVCs, APCs) Problem List - Problems (1) COPD (chronic obstructive pulmonary disease) Code(s): J44.9 - CHRONIC OBSTRUCTIVE PULMONARY DISEASE, UNSPECIFIED (2) Lung cancer Code(s): C34.90 - MALIGNANT NEOPLASM OF UNSP PART OF UNSP BRONCHUS OR LUNG (3) Lung mass Code(s): R91.8 - OTHER NONSPECIFIC ABNORMAL FINDING OF LUNG FIELD (4) Post-obstructive pneumonia due to foreign body aspiration Code(s): J18.9 - PNEUMONIA, UNSPECIFIED ORGANISM T17.908S - UNSP FB IN RESP TRACT, PART UNSP CAUSING OTH INJURY, SEQUELA (5) Acute hypoxemic respiratory failure Code(s): J96.01 - ACUTE RESPIRATORY FAILURE WITH HYPOXIA (6) HIV (human immunodeficiency virus infection) Code(s): Z21 - ASYMPTOMATIC HUMAN IMMUNODEFICIENCY VIRUS INFECTION STATUS (7) Tachycardia Code(s): R00.0 - TACHYCARDIA, UNSPECIFIED Assessment/Plan 70 year old man with a history of severe COPD, Lung Ca, HIV admitted with sob found to have right lung collapse, mediastinal shift, post-obstructive PNA and noted to have sinus tachycardia throughout the admission. Pt receiving palliative RT. Tachycardia-sinus tach with episodes of PSVT likely secondary to underlying medical illness -pt remains asymptomatic from a tachycardia standpoint, no palpitations -given episodes of PSVT will increase Cardizem to 60mg PO q6H, monitor to confirm BP tolerates the increased dose -cta chest 04/01/16 showed no evidence of PE -cont supportive care -echo showed no pericardial effusion, normal LV systolic function, mild PAH, trace to mild MR and TR -TFTs nl -ok from a cardiac standpoint for discharge to hospice when medically ready
--- NOTE | 2016-04-16 12:17 | PN ---
Progress Note, Physician History of Present Illness: pulmonary alert,dyspneic at rest. - Current Medication List Current Medications: Active Medications Albuterol/Ipratropium (Duoneb -) 1 amp NEB [facility]IDR [facility] Last Admin: 04/16/16 07:19 Dose: 1 amp Diltiazem HCl (Cardizem -) 60 mg PO QID [facility] Emtricitabine/Rilpivirine/Tenofovir (Complera -) 1 each PO DAILY@0800 [facility] Last Admin: 04/16/16 09:07 Dose: 1 each Prednisone (Deltasone -) 20 mg PO DAILY [facility] Last Admin: 04/16/16 09:07 Dose: 20 mg - Objective Vital Signs: Vital Signs Temperature 97.5 F L 04/16/16 09:09 Pulse Rate 117 H 04/16/16 09:09 Respiratory Rate 23 04/16/16 09:09 Blood Pressure 126/97 04/16/16 09:09 O2 Sat by Pulse Oximetry (%) 91 L 04/15/16 21:00 Constitutional: Yes: Cachectic, Other (dyspneic) Eyes: Yes: WNL HENT: Yes: WNL Neck: Yes: Supple Cardiovascular: Yes: Regular Rate and Rhythm, S1, S2 Respiratory: Yes: Rhonchi (scattered gracie rhonchi) Gastrointestinal: Yes: Normal Bowel Sounds, Soft Extremities: Yes: WNL Edema: No Labs: CBC, BMP 04/12/16 06:00 04/12/16 07:50 Problem List - Problems (1) Acute hypoxemic respiratory failure Code(s): J96.01 - ACUTE RESPIRATORY FAILURE WITH HYPOXIA (2) Acute respiratory distress Code(s): J80 - ACUTE RESPIRATORY DISTRESS SYNDROME (3) HIV (human immunodeficiency virus infection) Code(s): Z21 - ASYMPTOMATIC HUMAN IMMUNODEFICIENCY VIRUS INFECTION STATUS (4) Pneumonia Code(s): J18.9 - PNEUMONIA, UNSPECIFIED ORGANISM (5) Lung cancer Code(s): C34.90 - MALIGNANT NEOPLASM OF UNSP PART OF UNSP BRONCHUS OR LUNG (6) Abnormal LFTs Code(s): R79.89 - OTHER SPECIFIED ABNORMAL FINDINGS OF BLOOD CHEMISTRY (7) COPD (chronic obstructive pulmonary disease) Code(s): J44.9 - CHRONIC OBSTRUCTIVE PULMONARY DISEASE, UNSPECIFIED (8) Lung cancer, hilus Code(s): C34.00 - MALIGNANT NEOPLASM OF UNSPECIFIED MAIN BRONCHUS (9) Lung mass Code(s): R91.8 - OTHER NONSPECIFIC ABNORMAL FINDING OF LUNG FIELD Assessment/Plan ASSESSMENT AND PLAN: Acute on Chronic Hypoxic Respiratory Failure 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
--- NOTE | 2016-04-16 17:03 | PN ---
Progress Note, Physician History of Present Illness: stable - Current Medication List Current Medications: Active Medications Albuterol/Ipratropium (Duoneb -) 1 amp NEB QIDR [facility] Last Admin: 04/16/16 11:05 Dose: 1 amp Diltiazem HCl (Cardizem -) 60 mg PO QID [facility] Last Admin: 04/16/16 13:57 Dose: 60 mg Emtricitabine/Rilpivirine/Tenofovir (Complera -) 1 each PO DAILY@0800 [facility] Last Admin: 04/16/16 09:07 Dose: 1 each Prednisone (Deltasone -) 20 mg PO DAILY [facility] Last Admin: 04/16/16 09:07 Dose: 20 mg - Objective Vital Signs: Vital Signs Temperature 98.2 F 04/16/16 14:36 Pulse Rate 125 H 04/16/16 14:36 Respiratory Rate 28 H 04/16/16 14:36 Blood Pressure 135/87 04/16/16 14:36 O2 Sat by Pulse Oximetry (%) 92 L 04/16/16 10:40 Constitutional: Yes: No Distress HENT: Yes: Atraumatic Neck: Yes: Supple Cardiovascular: Yes: Regular Rate and Rhythm Respiratory: Yes: CTA Bilaterally Gastrointestinal: Yes: Normal Bowel Sounds Extremities: Yes: WNL Neurological: Yes: Alert, Oriented Labs: CBC, BMP 04/12/16 06:00 04/12/16 07:50 Problem List - Problems (1) Lung cancer Code(s): C34.90 - MALIGNANT NEOPLASM OF UNSP PART OF UNSP BRONCHUS OR LUNG (2) Acute hypoxemic respiratory failure Code(s): J96.01 - ACUTE RESPIRATORY FAILURE WITH HYPOXIA (3) HIV (human immunodeficiency virus infection) Code(s): Z21 - ASYMPTOMATIC HUMAN IMMUNODEFICIENCY VIRUS INFECTION STATUS (4) Pneumonia Code(s): J18.9 - PNEUMONIA, UNSPECIFIED ORGANISM (5) COPD (chronic obstructive pulmonary disease) Code(s): J44.9 - CHRONIC OBSTRUCTIVE PULMONARY DISEASE, UNSPECIFIED (6) Protein calorie malnutrition Code(s): E46 - UNSPECIFIED PROTEIN-CALORIE MALNUTRITION Assessment/Plan 1.acute respiratory failure/pna..post obstructive po prednisone 2.hiv stable on meds 3.copd duo nebs 4.htn stable on meds 5.hld 6.lung ca...sq cell for RT..palliative to R lung..last treatmet done dc ivf dc when bed available
[2016-04-17] MEDS: ALBUTEROL SO4 2.5/IPRATROPIUM 0.5 INH SOL 3 ML VIAL.NEB. NEB SCH ×4 (06:20→23:48)
[2016-04-17] MEDS ORDERED: PT OWN MED DRAWER 7, Y5N ONE (09:03)
--- NOTE | 2016-04-17 09:04 | PN ---
Progress Note (short form) - Note Progress Note: Patient seen and examined Somewhat tremulous Denies significant pain Denies shortness of breath or dyspnea Last Vital Signs Temp Pulse Resp BP Pulse Ox 97.7 F 107 H 22 122/84 90 L 04/17/16 08:38 04/17/16 08:38 04/17/16 08:38 04/17/16 08:38 04/16/16 21:00 No icterus Poor dentition Lungs with rhonchi and wheezes Cor-RSR Abd- sft No significant LE edema Tremulous Impression: SCC of LUNG S/P RT Post obstructive pneumonitis Acute hypoxic respiratory Failur- improved HIV -under therapy Anemia Plan: [place] placement Problem List - Problems (1) Lung cancer, hilus Code(s): C34.00 - MALIGNANT NEOPLASM OF UNSPECIFIED MAIN BRONCHUS (2) RLL pneumonia Code(s): J18.9 - PNEUMONIA, UNSPECIFIED ORGANISM (3) Acute hypoxemic respiratory failure Code(s): J96.01 - ACUTE RESPIRATORY FAILURE WITH HYPOXIA (4) COPD (chronic obstructive pulmonary disease) Code(s): J44.9 - CHRONIC OBSTRUCTIVE PULMONARY DISEASE, UNSPECIFIED (5) HIV disease Code(s): B20 - HUMAN IMMUNODEFICIENCY VIRUS [HIV] DISEASE
[2016-04-17] MEDS: predniSONE 20 MG TABLET (UD) PO SCH (09:59)
[2016-04-17] MEDS: dilTIAZem HCL 30 MG TABLET (FP) PO SCH ×4 (09:59→21:29)
[2016-04-17] MEDS: EMTRICITAB/RILPIVIRINE/TENOFOV 1 EACH TABLET PO SCH (10:00)
--- NOTE | 2016-04-17 17:39 | PN ---
Progress Note, Physician History of Present Illness: stable - Current Medication List Current Medications: Active Medications Albuterol/Ipratropium (Duoneb -) 1 amp NEB QIDR [facility] Last Admin: 04/17/16 17:07 Dose: 1 amp Diltiazem HCl (Cardizem -) 60 mg PO QID [facility] Last Admin: 04/17/16 17:19 Dose: 60 mg Emtricitabine/Rilpivirine/Tenofovir (Complera -) 1 each PO DAILY@0800 [facility] Prednisone (Deltasone -) 20 mg PO DAILY [facility] Last Admin: 04/17/16 09:59 Dose: 20 mg - Objective Vital Signs: Vital Signs Temperature 97.2 F L 04/17/16 13:56 Pulse Rate 102 H 04/17/16 13:56 Respiratory Rate 22 04/17/16 13:56 Blood Pressure 145/56 04/17/16 13:56 O2 Sat by Pulse Oximetry (%) 94 L 04/17/16 09:00 Constitutional: Yes: No Distress HENT: Yes: Atraumatic Cardiovascular: Yes: Regular Rate and Rhythm Respiratory: Yes: CTA Bilaterally Gastrointestinal: Yes: Normal Bowel Sounds Extremities: Yes: WNL Neurological: Yes: Alert, Oriented Labs: CBC, BMP 04/12/16 06:00 04/12/16 07:50 Problem List - Problems (1) Lung cancer Code(s): C34.90 - MALIGNANT NEOPLASM OF UNSP PART OF UNSP BRONCHUS OR LUNG (2) Acute hypoxemic respiratory failure Code(s): J96.01 - ACUTE RESPIRATORY FAILURE WITH HYPOXIA (3) HIV (human immunodeficiency virus infection) Code(s): Z21 - ASYMPTOMATIC HUMAN IMMUNODEFICIENCY VIRUS INFECTION STATUS (4) Pneumonia Code(s): J18.9 - PNEUMONIA, UNSPECIFIED ORGANISM (5) COPD (chronic obstructive pulmonary disease) Code(s): J44.9 - CHRONIC OBSTRUCTIVE PULMONARY DISEASE, UNSPECIFIED (6) Protein calorie malnutrition Code(s): E46 - UNSPECIFIED PROTEIN-CALORIE MALNUTRITION (7) Post-obstructive pneumonia due to foreign body aspiration Code(s): J18.9 - PNEUMONIA, UNSPECIFIED ORGANISM T17.908S - UNSP FB IN RESP TRACT, PART UNSP CAUSING OTH INJURY, SEQUELA (8) Severe malnutrition Code(s): E41 - NUTRITIONAL MARASMUS Assessment/Plan 1.acute respiratory failure/pna..post obstructive po prednisone 2.hiv stable on meds 3.copd duo nebs 4.htn stable on meds 5.hld 6.lung ca...sq cell for RT..palliative to R lung..last treatmet done dc ivf dc when bed available at [facility]
[2016-04-18] MEDS: ALBUTEROL SO4 2.5/IPRATROPIUM 0.5 INH SOL 3 ML VIAL.NEB. NEB SCH ×3 (06:00→17:37)
[2016-04-18] MEDS: predniSONE 20 MG TABLET (UD) PO SCH (09:50)
[2016-04-18] MEDS: dilTIAZem HCL 30 MG TABLET (FP) PO SCH ×4 (09:50→21:27)
[2016-04-18] MEDS: EMTRICITAB/RILPIVIRINE/TENOFOV 1 EACH TABLET PO SCH (09:50)
--- NOTE | 2016-04-18 11:22 | PN ---
Progress Note, Physician - Current Medication List Current Medications: Active Medications Albuterol/Ipratropium (Duoneb -) 1 amp NEB QIDR [facility] Last Admin: 04/18/16 06:00 Dose: 1 amp Diltiazem HCl (Cardizem -) 60 mg PO QID [facility] Last Admin: 04/18/16 09:50 Dose: 60 mg Emtricitabine/Rilpivirine/Tenofovir (Complera -) 1 each PO DAILY@0800 [facility] Last Admin: 04/18/16 09:50 Dose: 1 each Prednisone (Deltasone -) 20 mg PO DAILY [facility] Last Admin: 04/18/16 09:50 Dose: 20 mg - Objective Vital Signs: Vital Signs Temperature 98.1 F 04/18/16 06:00 Pulse Rate 114 H 04/18/16 09:20 Respiratory Rate 20 04/18/16 09:20 Blood Pressure 121/86 04/18/16 09:20 O2 Sat by Pulse Oximetry (%) 94 L 04/17/16 21:00 Constitutional: Yes: No Distress, Calm, Thin Eyes: Yes: Conjunctiva Clear, EOM Intact HENT: Yes: Atraumatic, Normocephalic Neck: Yes: Supple, Trachea Midline Cardiovascular: Yes: Tachycardia, S1, S2. No: Bradycardia, Pulse Irregular, Bruit, JVD, Gallop, Murmur, Rub, S3, S4, Varicosities Respiratory: Yes: Regular, Diminished, Rhonchi. No: Rales, Wheezes Gastrointestinal: Yes: WNL, Normal Bowel Sounds, Soft. No: Distention, Tenderness Musculoskeletal: Yes: Muscle Weakness Edema: No Peripheral Pulses WNL: Yes Peripheral Pulses: Left Doralis Pedis: 2+, Right Dorsalis Pedis: 2+ Integumentary: Yes: WNL Neurological: Yes: Alert, Oriented Psychiatric: Yes: Alert, Oriented Labs: CBC, BMP 04/12/16 06:00 04/12/16 07:50 - ....Imaging Chest X-ray: Report Reviewed, Image Reviewed EKG: Report Reviewed, Image Reviewed Other: Report Reviewed, Image Reviewed (tele-sinus tach, frequent apcs, pvcs) Problem List - Problems (1) COPD (chronic obstructive pulmonary disease) Code(s): J44.9 - CHRONIC OBSTRUCTIVE PULMONARY DISEASE, UNSPECIFIED (2) Lung cancer Code(s): C34.90 - MALIGNANT NEOPLASM OF UNSP PART OF UNSP BRONCHUS OR LUNG (3) Lung mass Code(s): R91.8 - OTHER NONSPECIFIC ABNORMAL FINDING OF LUNG FIELD (4) Post-obstructive pneumonia due to foreign body aspiration Code(s): J18.9 - PNEUMONIA, UNSPECIFIED ORGANISM T17.908S - UNSP FB IN RESP TRACT, PART UNSP CAUSING OTH INJURY, SEQUELA (5) Acute hypoxemic respiratory failure Code(s): J96.01 - ACUTE RESPIRATORY FAILURE WITH HYPOXIA (6) HIV (human immunodeficiency virus infection) Code(s): Z21 - ASYMPTOMATIC HUMAN IMMUNODEFICIENCY VIRUS INFECTION STATUS (7) Tachycardia Code(s): R00.0 - TACHYCARDIA, UNSPECIFIED Assessment/Plan 70 year old man with a history of severe COPD, Lung Ca, HIV admitted with sob found to have right lung collapse, mediastinal shift, post-obstructive PNA and noted to have sinus tachycardia throughout the admission. Pt receiving palliative RT. Tachycardia-sinus tach with episodes of PSVT likely secondary to underlying medical illness -pt remains asymptomatic from a tachycardia standpoint, no palpitations -given episodes of PSVT started cardizem and increased to Cardizem to 60mg PO q6H -unable to uptitrate cardizem due to low normal BP -still mild sinus tach which will likely be persistent due to underlying illness -cta chest 04/01/16 showed no evidence of PE -cont supportive care -echo showed no pericardial effusion, normal LV systolic function, mild PAH, trace to mild MR and TR -TFTs nl -ok from a cardiac standpoint for discharge when medically ready
--- NOTE | 2016-04-18 14:39 | PN ---
Progress Note, Physician History of Present Illness: stable - Current Medication List Current Medications: Active Medications Albuterol/Ipratropium (Duoneb -) 1 amp NEB QIDR [facility] Last Admin: 04/18/16 11:26 Dose: 1 amp Diltiazem HCl (Cardizem -) 60 mg PO QID [facility] Last Admin: 04/18/16 09:50 Dose: 60 mg Emtricitabine/Rilpivirine/Tenofovir (Complera -) 1 each PO DAILY@0800 [facility] Last Admin: 04/18/16 09:50 Dose: 1 each Prednisone (Deltasone -) 20 mg PO DAILY [facility] Last Admin: 04/18/16 09:50 Dose: 20 mg - Objective Vital Signs: Vital Signs Temperature 98.1 F 04/18/16 06:00 Pulse Rate 114 H 04/18/16 09:20 Respiratory Rate 20 04/18/16 09:20 Blood Pressure 121/86 04/18/16 09:20 O2 Sat by Pulse Oximetry (%) 94 L 04/17/16 21:00 Constitutional: Yes: No Distress HENT: Yes: Atraumatic Cardiovascular: Yes: Regular Rate and Rhythm Respiratory: Yes: CTA Bilaterally Gastrointestinal: Yes: Normal Bowel Sounds Extremities: Yes: WNL Neurological: Yes: Alert, Oriented Labs: CBC, BMP 04/12/16 06:00 04/12/16 07:50 Problem List - Problems (1) Lung cancer Code(s): C34.90 - MALIGNANT NEOPLASM OF UNSP PART OF UNSP BRONCHUS OR LUNG (2) Acute hypoxemic respiratory failure Code(s): J96.01 - ACUTE RESPIRATORY FAILURE WITH HYPOXIA (3) HIV (human immunodeficiency virus infection) Code(s): Z21 - ASYMPTOMATIC HUMAN IMMUNODEFICIENCY VIRUS INFECTION STATUS (4) Pneumonia Code(s): J18.9 - PNEUMONIA, UNSPECIFIED ORGANISM (5) COPD (chronic obstructive pulmonary disease) Code(s): J44.9 - CHRONIC OBSTRUCTIVE PULMONARY DISEASE, UNSPECIFIED (6) Protein calorie malnutrition Code(s): E46 - UNSPECIFIED PROTEIN-CALORIE MALNUTRITION (7) Severe malnutrition Code(s): E41 - NUTRITIONAL MARASMUS Assessment/Plan 1.acute respiratory failure/pna..post obstructive po prednisone 2.hiv stable on meds 3.copd duo nebs 4.htn stable on meds 5.hld 6.lung ca...sq cell for RT..palliative to R lung..last treatmet done dc ivf dc when bed available at [facility]
[2016-04-18] MEDS: ALBUTEROL SO4 0.083% IH SOL 2.5 MG/3 ML VIAL.NEB. NEB PRN ×2 (15:50→22:45)
[2016-04-18] MEDS: methylPREDNISolone NA SUCC 40 MG/1 ML VIAL IVPB SCH ×2 (15:56→21:27)
[2016-04-18 16:02] LABS: ARTERIAL BLD GAS O2 SATURATION 88.5 % (90-98.9); ARTERIAL BLOOD GAS HCO3 26.4 meq/L (22-26); ARTERIAL BLOOD GAS pH 7.41 (7.35-7.45)
[2016-04-18 16:03] LABS: ALLENS TEST POSITIVE; ART PUNCT SITE RIGHT RADIAL; LPM/O2% 100% NRM; PT. ON O2? YES
[2016-04-18 16:04] LABS: ARTERIAL BLOOD GAS PO2 59.7 mmHg (70-100)
[2016-04-18] MEDS: morphine CARPU-JECT 2 MG/1 ML DISP.SYRIN IVPUSH PRN ×2 (16:25→19:53)
--- NOTE | 2016-04-18 16:43 | HOSP ---
Subjective - Review of Symptoms Events since last encounter: patient tachypneic and hypoxic in 4L nc O2 sat 76% Subjective: patient now on venturi mask 5L tachypneic but denies sob. very labored breathing. appears uncomfortable. cachectic. awake but difficult ot speak given tachypnea and respiratory distress. O2 sat 93%. He is DNI, end stage lung CA hospice transfer Other Systems: unable to obtain ROS as patient cant speak with severe tachypnea. Physical Examination Vital Signs: Vital Signs Temperature 97.6 F 04/18/16 14:29 Pulse Rate 117 H 04/18/16 14:29 Respiratory Rate 28 H 04/18/16 14:29 Blood Pressure 113/87 04/18/16 14:29 O2 Sat by Pulse Oximetry (%) 94 L 04/17/16 21:00 Constitutional: Yes: Cachectic Eyes: Yes: Conjunctiva Clear HENT: Yes: Atraumatic, Normocephalic Neck: Yes: Supple Cardiovascular: Yes: Tachycardia, S1, S2, Other (regular rythm) Respiratory: Yes: Other (R lung poor air movement, ronchi, L lung diffuse ronchi and crackles) Gastrointestinal: Yes: Hypoactive Bowel Sounds Peripheral Pulses: Left Radial: 2+, Right Radial: 2+ Neurological: Yes: Alert Labs: CBC, BMP 04/12/16 06:00 04/12/16 07:50 Hospitalist Encounter Assessment: acute on chronic respiratory distress due to end stage lung CA -DNI, hospice -Pulm consulted -venture 5L sattign 93%, RR36 -morphine 1 mg q3h -albuterol nebs -continue duonebs Visit type - Emergency Visit Emergency Visit: Yes ED Registration Date: 04/01/16 Care time: The patient presented to the Emergency Department on the above date and was hospitalized for further evaluation of their emergent condition. - New Patient This patient is new to me today: Yes Date on this admission: 04/18/16 - Critical Care Critical Care patient: No
[2016-04-19] MEDS: ALBUTEROL SO4 2.5/IPRATROPIUM 0.5 INH SOL 3 ML VIAL.NEB. NEB SCH ×4 (00:06→17:32)
[2016-04-19] MEDS: methylPREDNISolone NA SUCC 40 MG/1 ML VIAL IVPB SCH ×4 (02:14→21:49)
[2016-04-19] MEDS: morphine CARPU-JECT 2 MG/1 ML DISP.SYRIN IVPUSH PRN ×2 (10:15→12:47)
[2016-04-19] MEDS: EMTRICITAB/RILPIVIRINE/TENOFOV 1 EACH TABLET PO SCH (10:16)
[2016-04-19] MEDS: dilTIAZem HCL 30 MG TABLET (FP) PO SCH ×4 (10:16→21:49)
--- NOTE | 2016-04-19 10:55 | PN ---
Progress Note, Physician History of Present Illness: pulmonary tachypneic,congested on 100%nrm - Current Medication List Current Medications: Active Medications Albuterol Sulfate (Ventolin 0.083% Nebulizer Soln -) 1 amp NEB Q4H PRN PRN Reason: SHORT OF BREATH/WHEEZING Last Admin: 04/18/16 22:45 Dose: 1 amp Albuterol/Ipratropium (Duoneb -) [address] [facility] Last Admin: 04/19/16 05:28 Dose: 1 amp Diltiazem HCl (Cardizem -) [address] [facility] Last Admin: 04/19/16 10:16 Dose: Not Given Emtricitabine/Rilpivirine/Tenofovir (Complera -) 1 each PO DAILY@0800 [facility] Last Admin: 04/19/16 10:16 Dose: Not Given Methylprednisolone Sodium Succinate (Solu-Medrol -) 40 mg IVPB Q6H-IV [facility] Last Admin: 04/19/16 10:16 Dose: 40 mg Morphine Sulfate (Morphine Injection -) 1 mg IVPUSH Q3H PRN PRN Reason: PAIN Last Admin: 04/19/16 10:15 Dose: 1 mg - Objective Vital Signs: Vital Signs Temperature 97.9 F 04/19/16 06:00 Pulse Rate 127 H 04/19/16 10:10 Respiratory Rate 26 H 04/19/16 10:10 Blood Pressure 91/56 04/19/16 10:10 O2 Sat by Pulse Oximetry (%) 100 04/18/16 21:00 Constitutional: Yes: Cachectic, Moderate Distress Eyes: Yes: WNL HENT: Yes: WNL Neck: Yes: WNL Cardiovascular: Yes: Regular Rate and Rhythm, S1, S2 Respiratory: Yes: Rhonchi (diffuse gracie wheezes and rhonchi) Gastrointestinal: Yes: Normal Bowel Sounds, Soft Extremities: Yes: WNL Edema: No Labs: Problem List - Problems (1) Acute hypoxemic respiratory failure Code(s): J96.01 - ACUTE RESPIRATORY FAILURE WITH HYPOXIA (2) Acute respiratory distress Code(s): J80 - ACUTE RESPIRATORY DISTRESS SYNDROME (3) HIV (human immunodeficiency virus infection) Code(s): Z21 - ASYMPTOMATIC HUMAN IMMUNODEFICIENCY VIRUS INFECTION STATUS (4) Pneumonia Code(s): J18.9 - PNEUMONIA, UNSPECIFIED ORGANISM (5) Lung cancer Code(s): C34.90 - MALIGNANT NEOPLASM OF UNSP PART OF UNSP BRONCHUS OR LUNG (6) Abnormal LFTs Code(s): R79.89 - OTHER SPECIFIED ABNORMAL FINDINGS OF BLOOD CHEMISTRY (7) COPD (chronic obstructive pulmonary disease) Code(s): J44.9 - CHRONIC OBSTRUCTIVE PULMONARY DISEASE, UNSPECIFIED (8) Lung cancer, hilus Code(s): C34.00 - MALIGNANT NEOPLASM OF UNSPECIFIED MAIN BRONCHUS (9) Lung mass Code(s): R91.8 - OTHER NONSPECIFIC ABNORMAL FINDING OF LUNG FIELD Assessment/Plan ASSESSMENT AND PLAN: Acute on Chronic Hypoxic Respiratory Failure 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
--- NOTE | 2016-04-19 11:33 | PN ---
Progress Note, Physician History of Present Illness: seen and examined today. awake but appears more lethargic. no new complaints. - Current Medication List Current Medications: Active Medications Albuterol Sulfate (Ventolin 0.083% Nebulizer Soln -) 1 amp NEB Q4H PRN PRN Reason: SHORT OF BREATH/WHEEZING Last Admin: 04/18/16 22:45 Dose: 1 amp Albuterol/Ipratropium (Duoneb -) 1 amp NEB QIDR [facility] Last Admin: 04/19/16 05:28 Dose: 1 amp Diltiazem HCl (Cardizem -) 60 mg PO QID [facility] Last Admin: 04/19/16 10:16 Dose: Not Given Emtricitabine/Rilpivirine/Tenofovir (Complera -) 1 each PO DAILY@0800 [facility] Last Admin: 04/19/16 10:16 Dose: Not Given Methylprednisolone Sodium Succinate (Solu-Medrol -) 40 mg IVPB Q6H-IV [facility] Last Admin: 04/19/16 10:16 Dose: 40 mg Morphine Sulfate (Morphine Injection -) 1 mg IVPUSH Q3H PRN PRN Reason: PAIN Last Admin: 04/19/16 10:15 Dose: 1 mg - Objective Vital Signs: Vital Signs Temperature 97.9 F 04/19/16 06:00 Pulse Rate 127 H 04/19/16 10:10 Respiratory Rate 26 H 04/19/16 10:10 Blood Pressure 91/56 04/19/16 10:10 O2 Sat by Pulse Oximetry (%) 100 04/18/16 21:00 Constitutional: Yes: No Distress, Calm, Cachectic, Thin Eyes: Yes: WNL, Conjunctiva Clear, EOM Intact, PERRL HENT: Yes: WNL, Atraumatic, Normocephalic Neck: Yes: WNL, Supple, Trachea Midline Cardiovascular: Yes: Tachycardia, S1, S2. No: Bradycardia, Pulse Irregular, Bruit, JVD, Gallop, Murmur, Rub, S3, S4, Varicosities Respiratory: Yes: Diminished, On Venti-Mask, Rhonchi, Tachypnea Gastrointestinal: Yes: WNL, Normal Bowel Sounds, Soft. No: Distention, Tenderness Edema: No Peripheral Pulses WNL: Yes Peripheral Pulses: Left Doralis Pedis: 2+, Right Dorsalis Pedis: 2+ Neurological: Yes: Alert Psychiatric: Yes: Alert Labs: CBC, BMP 04/12/16 06:00 04/12/16 07:50 - ....Imaging Chest X-ray: Report Reviewed, Image Reviewed EKG: Report Reviewed, Image Reviewed Other: Report Reviewed, Image Reviewed (tele-off tele) Problem List - Problems (1) COPD (chronic obstructive pulmonary disease) Code(s): J44.9 - CHRONIC OBSTRUCTIVE PULMONARY DISEASE, UNSPECIFIED (2) Lung cancer Code(s): C34.90 - MALIGNANT NEOPLASM OF UNSP PART OF UNSP BRONCHUS OR LUNG (3) Lung mass Code(s): R91.8 - OTHER NONSPECIFIC ABNORMAL FINDING OF LUNG FIELD (4) Post-obstructive pneumonia due to foreign body aspiration Code(s): J18.9 - PNEUMONIA, UNSPECIFIED ORGANISM T17.908S - UNSP FB IN RESP TRACT, PART UNSP CAUSING OTH INJURY, SEQUELA (5) Acute hypoxemic respiratory failure Code(s): J96.01 - ACUTE RESPIRATORY FAILURE WITH HYPOXIA (6) HIV (human immunodeficiency virus infection) Code(s): Z21 - ASYMPTOMATIC HUMAN IMMUNODEFICIENCY VIRUS INFECTION STATUS (7) Tachycardia Code(s): R00.0 - TACHYCARDIA, UNSPECIFIED Assessment/Plan 70 year old man with a history of severe COPD, Lung Ca, HIV admitted with sob found to have right lung collapse, mediastinal shift, post-obstructive PNA and noted to have sinus tachycardia throughout the admission. Pt receiving palliative RT. Tachycardia-sinus tach with episodes of PSVT likely secondary to underlying medical illness -Cardizem started for episodes of PSVT -unable to uptitrate cardizem due to low normal BP -still mild sinus tach which will likely be persistent due to underlying illness and would not aggressively treat medically -cta chest 04/01/16 showed no evidence of PE -cont supportive care -echo showed no pericardial effusion, normal LV systolic function, mild PAH, trace to mild MR and TR -TFTs nl -ok from a cardiac standpoint for discharge when medically ready
[2016-04-19] MEDS: MORPHINE 100 MG in SODIUM CHLORIDE 98 ML IVPB SCH (15:00)
[2016-04-19] MEDS ORDERED: PT OWN MED DRAWER 7, Y5N ONE (17:54)
--- NOTE | 2016-04-19 21:46 | PN ---
Progress Note, Physician History of Present Illness: Pt remains tachy - Current Medication List Current Medications: Active Medications Albuterol Sulfate (Ventolin 0.083% Nebulizer Soln -) 1 amp NEB Q4H PRN PRN Reason: SHORT OF BREATH/WHEEZING Last Admin: 04/18/16 22:45 Dose: 1 amp Albuterol/Ipratropium (Duoneb -) 1 amp NEB QIDR [facility] Last Admin: 04/19/16 17:32 Dose: 1 amp Diltiazem HCl (Cardizem -) 60 mg PO QID [facility] Last Admin: 04/19/16 17:49 Dose: Not Given Emtricitabine/Rilpivirine/Tenofovir (Complera -) 1 each PO DAILY@0800 [facility] Last Admin: 04/19/16 10:16 Dose: Not Given Morphine Sulfate 100 mg/ (Sodium Chloride) 100 mls @ 0.5 mls/hr IVPB TITR [facility]; 0.5 MG/HR PRN Reason: Protocol Last Admin: 04/19/16 15:00 Dose: 0.5 mls/hr Methylprednisolone Sodium Succinate (Solu-Medrol -) 40 mg IVPB Q6H-IV [facility] Last Admin: 04/19/16 15:52 Dose: 40 mg Morphine Sulfate (Morphine Injection -) 1 mg IVPUSH Q3H PRN PRN Reason: PAIN Last Admin: 04/19/16 12:47 Dose: 1 mg - Objective Vital Signs: Vital Signs Temperature 98.7 F 04/19/16 14:23 Pulse Rate 116 H 04/19/16 14:23 Respiratory Rate 38 H 04/19/16 14:23 Blood Pressure 101/60 04/19/16 14:23 O2 Sat by Pulse Oximetry (%) 96 04/19/16 12:09 Neck: Yes: Supple Cardiovascular: Yes: Tachycardia Respiratory: Yes: Other (Coarse bs b/l) Gastrointestinal: Yes: WNL, Normal Bowel Sounds, Soft Labs: CBC, BMP 04/12/16 06:00 04/12/16 07:50 Problem List - Problems (1) Pneumonia Code(s): J18.9 - PNEUMONIA, UNSPECIFIED ORGANISM (2) COPD (chronic obstructive pulmonary disease) Code(s): J44.9 - CHRONIC OBSTRUCTIVE PULMONARY DISEASE, UNSPECIFIED (3) Acute hypoxemic respiratory failure Code(s): J96.01 - ACUTE RESPIRATORY FAILURE WITH HYPOXIA (4) HIV (human immunodeficiency virus infection) Code(s): Z21 - ASYMPTOMATIC HUMAN IMMUNODEFICIENCY VIRUS INFECTION STATUS
[2016-04-20] MEDS: ALBUTEROL SO4 2.5/IPRATROPIUM 0.5 INH SOL 3 ML VIAL.NEB. NEB SCH ×2 (01:00→06:45)
[2016-04-20] MEDS: MORPHINE 100 MG in SODIUM CHLORIDE 98 ML IVPB SCH (02:10)
[2016-04-20] MEDS: methylPREDNISolone NA SUCC 40 MG/1 ML VIAL IVPB SCH ×2 (02:10→09:18)
[2016-04-20 06:08] VITALS: BP 111/46; PULSE 60; TEMP 99.3
--- NOTE | 2016-04-20 07:38 | RAPID ---
Physical Examination Vital Signs: Vital Signs Temperature 99.3 F 04/20/16 06:00 Pulse Rate 60 04/20/16 06:00 Respiratory Rate 22 04/20/16 06:00 Blood Pressure 111/46 04/20/16 06:00 O2 Sat by Pulse Oximetry (%) 100 04/20/16 01:12 Labs: CBC, BMP 04/12/16 06:00 04/12/16 07:50 Rapid Response - Rapid Response Assessment: Code 99 was called. Went to room 401 with the rapid response team. The nurse informed that the patient was found unresponsive. Patient was put on a monitor, found to be in asystole. ACLS protocol was started immediately. CPR was started at 0705am, patient was still asystole, 1 round of epi given at 0710, pulse check every 2 mins, 2nd round of epi given at 0714, 3rd round of epi given at 0716 with pulse check every 2minutes. Patient had fixed dilated pupils with asystole in the monitor. On Examination, patient didn't have spontaneous breathing, no corneal reflex, no gag reflex, fixed dilated pupils, no heart sounds, no pulse. Time of called at 0719. Patient was a DNI, therefore no intubation was done. Patient's PCP Dr. Burns was informed 0720. Family informed at 0725.
[2016-04-20] MEDS: EMTRICITAB/RILPIVIRINE/TENOFOV 1 EACH TABLET PO SCH (09:18)
--- NOTE | 2016-04-20 16:42 | DS ---
Physical Examination Vital Signs: Vital Signs Temperature 99.3 F 04/20/16 06:00 Pulse Rate 60 04/20/16 06:00 Respiratory Rate 22 04/20/16 06:00 Blood Pressure 111/46 04/20/16 06:00 O2 Sat by Pulse Oximetry (%) 100 04/20/16 01:12 Labs: CBC, BMP 04/12/16 06:00 04/12/16 07:50 Discharge Summary Reason For Visit: ABNORMAL LFTS/ LUNG MASS Condition: Critical - Instructions Referrals: Kai Buchanan MD [Staff Physician] - Guzman Kumar MD [Staff Physician] - Amado Shafer MD [Staff Physician] - Jim Burns MD [Staff Physician] - James Roe MD [Staff Physician] - Patsy Shanks MD [Primary Care Provider] - Jono Weir MD [Staff Physician] - Disposition: - Home Medications Comprehensive Discharge Medication List: Ambulatory Orders Emtricitab/Rilpivirine/Tenofov [Complera Tablet -] 1 each PO DAILY 01/29/16 Rosuvastatin [Crestor -] 20 mg PO DAILY 01/29/16 Albuterol Sulfate Inhaler - [Ventolin HFA Inhaler -] 1 - 2 inh PO Q4H #1 inhaler 02/05/16 Albuterol 0.083% Nebulizer Mami [Ventolin 0.083% Nebulizer Soln -] 1 neb NEB Q6H PRN 04/01/16 Prednisone [Deltasone -] 20 mg PO DAILY #30 tablet 04/15/16 Problem List - Problems (1) Lung cancer Code(s): C34.90 - MALIGNANT NEOPLASM OF UNSP PART OF UNSP BRONCHUS OR LUNG (2) Acute hypoxemic respiratory failure Code(s): J96.01 - ACUTE RESPIRATORY FAILURE WITH HYPOXIA (3) HIV (human immunodeficiency virus infection) Code(s): Z21 - ASYMPTOMATIC HUMAN IMMUNODEFICIENCY VIRUS INFECTION STATUS (4) Pneumonia Code(s): J18.9 - PNEUMONIA, UNSPECIFIED ORGANISM (5) COPD (chronic obstructive pulmonary disease) Code(s): J44.9 - CHRONIC OBSTRUCTIVE PULMONARY DISEASE, UNSPECIFIED (6) Protein calorie malnutrition Code(s): E46 - UNSPECIFIED PROTEIN-CALORIE MALNUTRITION (7) Severe malnutrition Code(s): E41 - NUTRITIONAL MARASMUS
== END 2016-04-20 11:00 | disposition expired | DRG 871 ==
LOC: JER 14:50 → JERBED 19:42 → JER 19:43 → JICU 19:53 → J4S 04-02 16:49
PROVIDERS: ADMIT Internal Medicine; ATTEND Internal Medicine
PROC: 5A09557 Assistance with Respiratory Ventilation, Greater than 96 Consecutive Hours, Continuous Positive Airway Pressure (ICD-10-PCS; principal; 2016-04-01)
PROC: 5A12012 Performance of Cardiac Output, Single, Manual (ICD-10-PCS; 2016-04-20)
DX: A41.9 Sepsis, unspecified organism (principal); J96.21 Acute and chronic respiratory failure with hypoxia; J18.9 Pneumonia, unspecified organism; E43 Unspecified severe protein-calorie malnutrition; C34.90 Malignant neoplasm of unspecified part of unspecified bronchus or lung; J98.11 Atelectasis; E87.2 Acidosis; Z68.1 Body mass index [BMI] 19.9 or less, adult; R64 Cachexia; J44.9 Chronic obstructive pulmonary disease, unspecified; E78.5 Hyperlipidemia, unspecified; Z21 Asymptomatic human immunodeficiency virus [HIV] infection status; I47.9 Paroxysmal tachycardia, unspecified; Z87.891 Personal history of nicotine dependence; Z99.81 Dependence on supplemental oxygen
CPT/HCPCS: 36415; 36600; 71010-TC; 71275-TC; 80053; 82375; 82550; 82803; 83050; 83605; 83880; 84443; 84484; 85025; 85379; 86850; 86900; 86901; 87040; 87899; 93005; 93010; 93306-TC; 94640; 94660; 97116-GP; 97162-PG; 99285-25; G0008; G0480; J1644; Q2037; Q9967